=== PATIENT | male | born 1945 | race Caucasian/White ===

== ENCOUNTER 2017-07-13 04:15 | Observation (INO) | payer MEDICARE ==
[2017-07-13] MEDS ORDERED: MORPHINE SULFATE 2 MG INJ IV ONE (04:51)
[2017-07-13] MEDS ORDERED: TORAdol 30 mg Injection IV ONE (04:51)
[2017-07-13] MEDS ORDERED: Pepcid 20 MG VIAL IV ONE ×2 (04:51→04:59)
[2017-07-13] MEDS ORDERED: Zofran 4 MG/2 ML VIAL IV ONE (04:51)
--- NOTE | 2017-07-13 04:51 | ERPHSYRPT ---
- History of Present Illness Time Seen by Provider: 07/13/17 04:47 Historian: patient, family Exam Limitations: no limitations Patient Subjective Stated Complaint: back pain, vomiting, abd pain. Triage Nursing Assessment: pt is alert and oriented. pt is ambulatory. pt has vomited 3-4 times. pt bowel sounds present x5. pt has hx of kidney stones. pt stated no hematuria. Physician History: pt has had onset of back pain radiating into abdomen with vomiting for a few days and recent x-ray with unknown result to look for stones and hx kidney stones - prior appe and prior cardiac stents; no CP or sobreath at this time; Timing/Duration: day(s) Activities at Onset: none Quality: sharpness Abdominal Pain Onset Location: RLQ, LLQ Pain Radiation: back Severity of Pain-Max: moderate Severity of Pain-Current: moderate Associated Symptoms: back, nausea, vomiting Allergies/Adverse Reactions: No Known Drug Allergies Allergy (Unverified 07/13/17 04:29) Home Medications: Aspirin EC 325 mg [Ecotrin 325 MG] 325 mg PO DAILY 07/13/17 [History] Atorvastatin Calcium [Lipitor 40Mg] 40 mg PO HS 07/13/17 [History] Fenofibrate Nanocrystallized [Tricor] 48 mg PO DAILY 07/13/17 [History] Furosemide 40 mg [Lasix 40 MG] 40 mg PO BID 07/13/17 [History] Losartan Potassium [Cozaar] 25 mg PO DAILY 07/13/17 [History] Meloxicam 15 mg [Meloxicam 15 MG] 15 mg PO DAILY 07/13/17 [History] Metformin HCl [Metformin HCl] 1,000 mg PO BID 07/13/17 [History] Metoprolol/Hydrochlorothiazide [Lopressor Hct 50-25 Tablet] 0.5 tab PO BID 07/13 [History] Potassium Chloride 20 Meq [Klor-Con 20 MEQ] 20 meq PO HS 07/13/17 [History] Hx Tetanus, Diphtheria Vaccination/Date Given: No Hx Influenza Vaccination/Date Given: Yes Hx Pneumococcal Vaccination/Date Given: Yes Immunizations Up to Date: Yes - Review of Systems Constitutional: No Fever, No Chills Eyes: No Symptoms Ears, Nose, & Throat: No Symptoms Respiratory: No Cough, No Dyspnea Cardiac: No Chest Pain, No Edema, No Syncope Abdominal/Gastrointestinal: Abdominal Pain, Nausea, Vomiting, No Diarrhea Genitourinary Symptoms: No Dysuria Musculoskeletal: Back Pain, No Neck Pain Skin: No Rash Neurological: No Dizziness, No Focal Weakness, No Sensory Changes Psychological: No Symptoms Endocrine: No Symptoms All Other Systems: Reviewed and Negative - Past Medical History Pertinent Past Medical History: Yes Cardiac History: Hypertension Respiratory History: No Pertinent History Endocrine Medical History: Diabetes Type II Musculoskeletal History: Arthritis GI Medical History: No Pertinent History History: No Pertinent History Psycho-Social History: No Pertinent History Male Reproductive Disorders: No Pertinent History - Past Surgical History Past Surgical History: Yes Neuro Surgical History: No Pertinent History Cardiac: Cardiac Catheterization, Cardiac Stent Respiratory: No Pertinent History Gastrointestinal: Appendectomy Genitourinary: No Pertinent History Musculoskeletal: No Pertinent History Male Surgical History: No Pertinent History - Social History Smoking Status: Former smoker Drug Use: none Patient Lives Alone: No - Nursing Vital Signs Nursing Vital Signs: Initial Vital Signs Temperature 98.5 F 07/13/17 04:16 Pulse Rate 75 07/13/17 04:16 Respiratory Rate 16 07/13/17 04:16 Blood Pressure 153/73 07/13/17 04:16 O2 Sat by Pulse Oximetry 96 07/13/17 04:16 Pain Scale Pain Intensity [Lower Back] 6 Pain Intensity 0 - Physical Exam General Appearance: no apparent distress, alert Eye Exam: PERRL/EOMI, eyes nml inspection Ears, Nose, Throat Exam: normal ENT inspection, pharynx normal, moist mucous membranes Neck Exam: normal inspection, non-tender, supple, full range of motion Respiratory Exam: normal breath sounds, lungs clear, No respiratory distress Cardiovascular Exam: regular rate/rhythm, normal heart sounds Gastrointestinal/Abdomen Exam: soft, No tenderness, No mass Rectal Exam: deferred Back Exam: normal inspection, normal range of motion, No CVA tenderness, No vertebral tenderness Extremity Exam: normal inspection, normal range of motion, pelvis stable Neurologic Exam: alert, oriented x 3, cooperative, normal mood/affect, nml cerebellar function, sensation nml, No motor deficits Skin Exam: normal color, warm, dry SpO2: 96 - Course Nursing assessment & vital signs reviewed: Yes EKG Interpreted by Me: Sinus Rhythm, Left Hoopa Deviation, Non-specific ST Changes, Other (intraventricular conduction delay) - Radiology Exams Chest X-ray Interpretation: Reviewed by me, Other (interstitial changes some present before with COPD smokinbg Hx) - CT Exams Abdomen/Pelvis CT Interpretation: Tele-radiologist Report, Other (right renal stone with hydronephrosis) Ordered Tests: Active Orders 24 hr Category Date Time Status Clean Catch Urine Specimen STAT Care 07/13/17 04:51 Active EKG-ER Only STAT Care 07/13/17 04:51 Active IV Insertion STAT Care 07/13/17 04:51 Active NPO (ED) STAT Care 07/13/17 04:51 Active ABDOMEN AND PELVIS W/0 CONTRAS [CT] Stat Exams 07/13/17 04:52 Ordered CHEST 1 VIEW (PORTABLE) Stat Exams 07/13/17 04:52 Ordered AMYLASE Stat Lab 07/13/17 04:50 Received CBC W DIFF Stat Lab 07/13/17 04:50 Completed CMP Stat Lab 07/13/17 04:50 Received LIPASE Stat Lab 07/13/17 04:50 Received Lactic Acid Stat Lab 07/13/17 04:55 Results TROPONIN Q3H Lab 07/13/17 04:50 Received TROPONIN Q3H Lab 07/13/17 08:00 Ordered TROPONIN Q3H Lab 07/13/17 11:00 Ordered TROPONIN Q3H Lab 07/13/17 14:00 Ordered TROPONIN Q3H Lab 07/13/17 17:00 Ordered UA W/RFX UR CULTURE Stat Lab 07/13/17 04:52 Uncollected Medication Summary Discontinued Medications Generic Name Dose Route Start Last Admin Trade Name Freq PRN Reason Stop Dose Admin Famotidine 20 mg 07/13/17 04:51 07/13/17 05:09 Pepcid 20 Mg Vial IV 07/13/17 04:52 20 mg STAT ONE Administration Famotidine Confirm 07/13/17 04:59 Pepcid 20 Mg Vial Administered 07/13/17 05:00 Dose 20 mg IV .STK-MED ONE Sodium Chloride 500 mls @ 999 mls/hr 07/13/17 04:51 07/13/17 05:09 Sodium Chloride 0.9% 1000 Ml IV 07/13/17 05:21 999 mls/hr .Q31M STA Administration Sodium Chloride Confirm 07/13/17 05:00 Sodium Chloride 0.9% 1000 Ml Administered 07/13/17 05:01 Dose 1,000 mls @ ud .ROUTE .STK-MED ONE Ketorolac Tromethamine 30 mg 07/13/17 04:51 07/13/17 05:09 Toradol 30 Mg Injection IV 07/13/17 04:52 30 mg STAT ONE Administration Ketorolac Tromethamine Confirm 07/13/17 04:59 Toradol 30 Mg Injection Administered 07/13/17 05:00 Dose 30 mg .ROUTE .STK-MED ONE Morphine Sulfate 2 mg 07/13/17 04:51 07/13/17 05:08 Morphine Sulfate 2 Mg Inj IV 07/13/17 04:52 2 mg STAT ONE Administration Morphine Sulfate Confirm 07/13/17 05:00 Morphine Sulfate 4 Mg Inj Administered 07/13/17 05:01 Dose 4 mg .ROUTE .STK-MED ONE Ondansetron HCl 4 mg 07/13/17 04:51 07/13/17 05:09 Zofran 4 Mg/2 Ml Vial IV 07/13/17 04:52 4 mg STAT ONE Administration Ondansetron HCl Confirm 07/13/17 04:59 Zofran 4 Mg/2 Ml Vial Administered 07/13/17 05:00 Dose 4 mg .ROUTE .STK-MED ONE Lab/Rad Data: Laboratory Result Diagrams 07/13/17 04:50 07/13/17 04:50 Laboratory Results 07/13/17 07/13/17 07/13/17 Range/Units 04:55 04:50 04:50 WBC (4.0-10.5) K/mm3 RBC (4.1-5.6) M/mm3 Hgb (12.5-18.0) gm/dl Hct (42-50) % MCV (78-100) fl MCH (26-32) pg MCHC (32-36) g/dl RDW (11.5-14.0) % Plt Count (150-450) K/mm3 MPV (6-9.5) fl Gran % (36.0-66.0) % Eos # (Auto) (0-0.5) Absolute Lymphs (auto) (1.0-4.6) Absolute Monos (auto) (0.0-1.3) Lymphocytes % (24.0-44.0) % Monocytes % (0.0-12.0) % Eosinophils % (0.00-5.0) % Basophils % (0.0-0.4) % Absolute Granulocytes (1.4-6.9) Basophils # (0-0.4) Sodium 143 (137-145) mmol/L Potassium 4.5 (3.5-5.1) mmol/L Chloride 105 (98-107) mmol/L Carbon Dioxide 28 (22-30) mmol/L Anion Gap 14.8 (5-15) MEQ/L BUN 19 (9-20) mg/dL Creatinine 1.01 (0.66-1.25) mg/dL Estimated GFR > 60.0 ML/MIN Glucose 189 H (74-106) mg/dL Lactic Acid 2.5 H (0.4-2.0) Calcium 11.3 H (8.4-10.2) mg/dL Total Bilirubin 0.50 (0.2-1.3) mg/dL AST 46 (17-59) U/L ALT 48 (0-50) U/L Alkaline Phosphatase 43 (38-126) U/L Troponin I < 0.012 (0.000-0.034) ng/mL Serum Total Protein 6.7 (6.3-8.2) g/dL Albumin 4.2 (3.5-5.0) g/dL Amylase 80 (30-110) U/L Lipase 112 (23-300) U/L //18 Range/Units 04:50 WBC 7.8 (4.0-10.5) K/mm3 RBC 4.46 (4.1-5.6) M/mm3 Hgb 13.4 (12.5-18.0) gm/dl Hct 41.3 L (42-50) % MCV 92.6 (78-100) fl MCH 30.0 (26-32) pg MCHC 32.4 (32-36) g/dl RDW 13.9 (11.5-14.0) % Plt Count 134 L (150-450) K/mm3 MPV 11.8 H (6-9.5) fl Gran % 80.5 H (36.0-66.0) % Eos # (Auto) 0.06 (0-0.5) Absolute Lymphs (auto) 0.84 L (1.0-4.6) Absolute Monos (auto) 0.62 (0.0-1.3) Lymphocytes % 10.7 L (24.0-44.0) % Monocytes % 7.9 (0.0-12.0) % Eosinophils % 0.8 (0.00-5.0) % Basophils % 0.1 (0.0-0.4) % Absolute Granulocytes 6.31 (1.4-6.9) Basophils # 0.01 (0-0.4) Sodium (137-145) mmol/L Potassium (3.5-5.1) mmol/L Chloride (98-107) mmol/L Carbon Dioxide (22-30) mmol/L Anion Gap (5-15) MEQ/L BUN (9-20) mg/dL Creatinine (0.66-1.25) mg/dL Estimated GFR ML/MIN Glucose (74-106) mg/dL Lactic Acid (0.4-2.0) Calcium (8.4-10.2) mg/dL Total Bilirubin (0.2-1.3) mg/dL AST (17-59) U/L ALT (0-50) U/L Alkaline Phosphatase (38-126) U/L Troponin I (0.000-0.034) ng/mL Serum Total Protein (6.3-8.2) g/dL Albumin (3.5-5.0) g/dL Amylase (30-110) U/L Lipase (23-300) U/L - Progress Progress: improved, re-examined Progress Note: 07/13/17 06:24 DIscussed with pt family and Dr power covering for dr Bautista and all agree best to place pt in obs to treat pain and follow hydronephrosis/renal stone for passage; Discussed with : Ernesto Will see patient in: hospital (observation) Counseled pt/family regarding: lab results, diagnosis, need for follow-up, rad results - Departure Time of Disposition: 06:28 Departure Disposition: Observation Clinical Impression: right renal stone with hydronephrosis Condition: Good Critical Care Time: No Referrals: DIEGO BAUTISTA MD [Primary Care Provider] -
[2017-07-13] MEDS ORDERED: TORAdol 30 mg Injection ONE (04:59)
[2017-07-13] MEDS ORDERED: Zofran 4 MG/2 ML VIAL ONE (04:59)
[2017-07-13] MEDS ORDERED: Sodium Chloride 0.9% 1000 ML 1,000 ML ONE (05:00)
[2017-07-13] MEDS ORDERED: MORPHINE SULFATE 4 MG INJ ONE (05:00)
[2017-07-13 05:02] LABS: Lactic Acid 2.5 (0.4-2.0)
[2017-07-13 05:02] LABS: BASOPHIL % 0.1 % (0.0-0.4); Basophil (Absolute #) 0.01 (0-0.4); Eosinophil % 0.8 % (0.00-5.0); Eosinophil (Absolute #) 0.06 (0-0.5); Granulocyte Absolute (ANC) 6.31 (1.4-6.9); Granulocytes % 80.5 % (36.0-66.0); Hematocrit 41.3 % (42-50); Hemoglobin 13.4 gm/dl (12.5-18.0); Lymphocyte (Absolute #) 0.84 (1.0-4.6); Lymphocytes % 10.7 % (24.0-44.0); Mean Cell Volume 92.6 fl (78-100); Mean Corpuscular Hgb Concent. 32.4 g/dl (32-36); Mean Platelet Volume 11.8 fl (6-9.5); Monocyte (Absolute #) 0.62 (0.0-1.3); Monocytes % 7.9 % (0.0-12.0); Platelet Count 134 K/mm3 (150-450); Red Blood Count 4.46 M/mm3 (4.1-5.6); Red Cell Distribution Width 13.9 % (11.5-14.0); White Blood Count 7.8 K/mm3 (4.0-10.5)
[2017-07-13 05:18] LABS: ALBUMIN 4.2 g/dL (3.5-5.0); ALKALINE PHOSPHATASE 43 U/L (38-126); AMYLASE 80 U/L (30-110); ANION GAP 14.8 MEQ/L (5-15); BLOOD UREA NITROGEN 19 mg/dL (9-20); CHLORIDE 105 mmol/L (98-107); Calcium 11.3 mg/dL (8.4-10.2); Carbon Dioxide 28 mmol/L (22-30); Creatinine 1 1.01 mg/dL (0.66-1.25); Glucose 189 mg/dL (74-106); LIPASE 112 U/L (23-300); Potassium 4.5 mmol/L (3.5-5.1); SGOT/AST 46 U/L (17-59); SGPT/ALT 48 U/L (0-50); SODIUM 143 mmol/L (137-145); Total Protein 6.7 g/dL (6.3-8.2)
[2017-07-13] MEDS ORDERED: Zofran 4 MG/2 ML VIAL IV PRN (07:02)
[2017-07-13] MEDS ORDERED: NovoLIN R SQ PRN (07:02)
[2017-07-13] MEDS ORDERED: Sodium Chloride 0.9% 1000 ML 1,000 ML IV SCH (07:02)
[2017-07-13] MEDS ORDERED: TORAdol 30 mg Injection IV PRN (07:02)
[2017-07-13] MEDS ORDERED: MORPHINE SULFATE 4 MG INJ IV PRN (07:02)
--- NOTE | 2017-07-13 07:18 | XRAY ---
Indication: Abdomen/back pain and emesis. History renal calculi. Multiple contiguous axial images obtained through the abdomen and pelvis without contrast as ordered. Comparison: October 26, 2008. Lung bases demonstrates minimal bibasilar atelectasis/scarring. Stable left base calcified granuloma. No infiltrate or effusion. Heart is not enlarged. Stable small hiatal hernia. New 2-3 mm proximal right ureteral calculus, approximately L4 level. Moderate right-sided hydronephrosis with perinephric stranding consistent with obstructive uropathy. A few nonobstructing bilateral renal punctate calculi. Gallbladder partially contracted with new tiny gallstones/gravel. Noncontrasted stomach and bowel loops appear nonobstructed. Previous reported appendectomy. Minimal scattered colonic diverticulosis, greatest in the descending colon. No free fluid/air. Remaining liver, pancreas, spleen, adrenal glands, kidneys, ureters, and bladder appear unremarkable for noncontrast exam. Again moderate aortoiliac calcifications without AAA. Osseous structures intact with mild multilevel degenerative spondylosis. Again small fatty umbilical hernia. Impression: 1. New 2-3 mm proximal right ureteral calculus with obstructive uropathy. Additional bilateral renal micro-calculi. 2. New cholelithiasis. 3. Stable colonic diverticulosis, hiatal hernia, and fatty umbilical hernia. Comment: Preliminary interpretation was made by [facility]. No critical discrepancy. CTDI 23.68
--- NOTE | 2017-07-13 07:18 | XRAY ---
Indication: Mid back pain. Possible pneumonia. Comparison: April 28, 2017. Portable apical lordotic chest is underinflated accentuating the cardiopulmonary structures. No focal infiltrate, consolidation, or large effusion. Heart is not enlarged. Bony thorax intact again with mild degenerative changes. Impression: Grossly nonacute underinflated chest.
[2017-07-13 08:02] VITALS: BP 124/60; PULSE 69; O2SAT 94
[2017-07-13] MEDS ORDERED: Flomax 0.4 MG PO SCH (10:00)
[2017-07-13] MEDS ORDERED: Norco 10/325 MG Tablet PO ONE (10:22)
--- NOTE | 2017-07-13 10:29 | PCM.DCORD ---
- Discharge Discharge Date: 07/13/17 Prescriptions: New Hydrocodone/APAP 10/325 mg [[place] 10/325 MG Tablet] 1 tab PO Q4H PRN PRN 5 Days #20 tablet MDD 4 PRN Reason: Pain Ondansetron [Zofran Odt] 4 mg PO Q4H #20 tab.rapdis Continue Aspirin EC 325 mg [Ecotrin 325 MG] 325 mg PO DAILY Atorvastatin Calcium [Lipitor 40Mg] 40 mg PO HS Furosemide 40 mg [Lasix 40 MG] 40 mg PO BID Fenofibrate Nanocrystallized [Tricor] 48 mg PO DAILY Metformin HCl 1,000 mg PO BID Losartan Potassium [Cozaar] 25 mg PO DAILY Metoprolol/Hydrochlorothiazide [Lopressor Hct 50-25 Tablet] 0.5 tab PO BID Potassium Chloride 20 Meq [Klor-Con 20 MEQ] 20 meq PO HS Meloxicam 15 mg [Meloxicam 15 MG] 15 mg PO DAILY Instructions: Renal Colic (DC) Follow up with: DIEGO BAUTISTA MD [Primary Care Provider] - Call for Appointment Forms: Discharge Instructions, Patient Portal Information
[2017-07-13] MEDS ORDERED: Mobic 7.5 MG PO SCH (10:30)
[2017-07-13] MEDS ORDERED: Glucophage 500 MG PO SCH (10:30)
[2017-07-13] MEDS ORDERED: Cozaar 50 MG PO SCH (10:30)
[2017-07-13] MEDS ORDERED: Lasix 40 MG PO SCH (10:30)
[2017-07-13] MEDS ORDERED: ENOXAPARIN SODIUM SQ SCH (10:30)
[2017-07-13] MEDS ORDERED: hydroDIURIL 25 MG PO SCH (10:30)
[2017-07-13] MEDS ORDERED: Ecotrin 325 MG PO SCH (10:30)
[2017-07-13] MEDS ORDERED: Tricor 145 MG PO SCH (10:30)
[2017-07-13] MEDS ORDERED: Lopressor 25MG Tab PO SCH (10:30)
[2017-07-13] MEDS ORDERED: LIPITOR 40MG PO SCH (22:00)
[2017-07-13] MEDS ORDERED: METOPROLOL PO SCH (22:00)
[2017-07-13] MEDS ORDERED: HYDROCHLOROTHIAZIDE PO SCH (22:00)
[2017-07-13] MEDS ORDERED: [UNRECOGNIZED DRUG - OTHER] PO SCH (22:00)
[2017-07-13] MEDS ORDERED: ZOCOR 20MG PO SCH (22:00)
[2017-07-13] MEDS ORDERED: NON-FORMULARY ITEM (Potassium Chloride 20 Meq [Klor-Con 20 Meq] 20 MEQ) PO SCH (22:00)
[2017-07-13] MEDS ORDERED: Klor Con 10 MEQ PO SCH (22:00)
--- NOTE | 2017-07-17 13:18 | SSS ---
DISCHARGE DIAGNOSIS: NEPHROLITHIASIS OF RIGHT SIDE. HISTORY: The patient is a 71 year-old white male patient who reports he began having problems with right flank pain, nausea, vomiting, abdominal pain radiating down to the groin. The patient reports he has a previous history of kidney stones the last time requiring lithotripsy to break up the stone after which he became toxic from pyelonephritis. The patient has not had problems for the last several years but did have x-ray recently to follow for stones. Apparently he has not heard back from this. In the emergency room the patient had a CT scan did confirm a 2 to 3 mm stone in the right collecting system approximately. The patient presently is essentially pain free and appears that the stone may well end up passing at this time. During his evaluation the patient was found to be somewhat hypoxic in the emergency room. He has been placed on supplemental oxygen. The patient has recently had evaluation for chronic obstructive pulmonary disease. He was a heavy smoker earlier in his life. He has had pulmonary function tests and chest x-ray recently. They found the cough to be due to FOREST inhibitor and after stopping it the cough went away. PAST MEDICAL/SURGICAL HISTORY: Otherwise significant for hypertension, diabetes mellitus type 2. He has had cardiac catheterization and heart stent, appendectomy in the past. HOME MEDICATIONS: Ecotrin 325 mg daily, Lipitor 40 mg a day, Tricor 48 mg daily, Lasix 40 mg b.i.d., losartan 25 mg daily, meloxicam 15 mg daily, metformin 1,000 mg b.i.d., metoprolol hydrochlorothiazide 50/25 mg b.i.d. and potassium 20 mEq daily. ALLERGIES: NKDA. PHYSICAL EXAMINATION: Revealed a well nourished, well developed somewhat obese white male currently in no distress. His temperature 98.5F, pulse 75, respiratory rate 16, blood pressure 152/73. O2 saturation 96% on room air initially. HEENT: Normocephalic, atraumatic. He is currently wearing oxygen per nasal cannula at 2 liters. Oropharynx is pink and moist. NECK: Supple without lymphadenopathy, thyromegaly or JVD. CHEST: Clear to auscultation with good air movement. HEART: Regular rate and rhythm without murmurs, rubs or gallops. ABDOMEN: Soft. No palpable masses. EXTREMITIES: Trace to 1+ edema over the shins. NEUROLOGIC: The patient is alert and oriented x3 with no focal deficits. LAB DATA AND TESTS: His troponins less than 0.012. His sugar was 189, BUN 19, creatinine 1.01. Electrolytes were normal. Liver enzymes were normal. Lactic acid elevated at 2.[address] scan again showed a 2 to 3 mm proximal right ureteral calculus with obstructive uropathy, new cholelithiasis and stable chronic diverticulosis, hiatal hernia and umbilical hernia. He had nonacute under-inflated chest on chest x-ray. HOSPITAL COURSE: The [facility] was [facility] and received morphine and Toradol after which the patient was essentially pain free at the present time. He was getting oxygen in the emergency room because his saturations were in the 70's after treatment with the morphine. We will check his O2 saturations on room air with rest and ambulation prior to discharge home otherwise he will be sent home with prescriptions for [place] and Zofran on PRN basis if the nausea or pain returns. He otherwise was instructed to follow with Dr. Flores in his office in the next coming week.
== END 2017-07-13 10:45 | disposition home or self-care (01) ==
LOC: ED 04:15 → MED SURG 06:58
PROVIDERS: ADMIT Family Medicine; ATTEND Family Medicine
DX: N20.0 Calculus of kidney (principal); Z87.442 Personal history of urinary calculi; R09.02 Hypoxemia; J44.9 Chronic obstructive pulmonary disease, unspecified; Z72.0 Tobacco use; I10 Essential (primary) hypertension; E11.9 Type 2 diabetes mellitus without complications; Z79.4 Long term (current) use of insulin; Z79.899 Other long term (current) drug therapy
CPT/HCPCS: 36000; 36415; 71045; 74176; 80053; 82150; 83605; 83690; 84484; 85025; 93005; 93268; 96360; 96374; 96375; 99285; G0378; J1885; J2270; J2405; A9270-GY

== ENCOUNTER 2017-12-03 07:48 | Day surgery (SDC) | payer MEDICARE ==
[2017-12-03] MEDS ORDERED: DIPRIVAN 200 MG/20 ML IV ONE (07:49)
[2017-12-03] MEDS ORDERED: Xylocaine-Mpf 2% 5 Ml Vial IJ ONE (07:49)
[2017-12-03] MEDS ORDERED: Depo-Medrol 40 MG/ML IM ONE (07:49)
[2017-12-03] MEDS ORDERED: Lactated Ringers 1,000 ML IV ONE (10:51)
--- NOTE | 2017-12-03 13:30 | XRAY ---
Indication: Bilateral L4-S1 MBB. Intraoperative fluoroscopy was provided for 33 seconds. Single digital spot image submitted for interpretation demonstrates bilateral posterior spinal needle tips projecting over the expected course of the left and right L4-S1 nerve roots. Correlate with intraoperative findings/report.
--- NOTE | 2017-12-03 16:37 | XRAY ---
27 seconds of fluoroscopy used in surgery for bilateral L4-S1 MBB.
== END 2017-12-03 09:40 | disposition home or self-care (01) ==
LOC: SDC-PAIN 07:48
PROVIDERS: ATTEND Psychiatry & Neurology Pain Medicine
DX: M47.817 Spondylosis without myelopathy or radiculopathy, lumbosacral region (principal)
CPT/HCPCS: 64493; 64494; 72020; 76000; 82962; 99100; J1030; J2704

== ENCOUNTER 2017-12-31 08:48 | Day surgery (SDC) | payer MEDICARE ==
[2017-12-31] MEDS ORDERED: Marcaine 0.5% SDV 10 ML IJ ONE (08:49)
[2017-12-31] MEDS ORDERED: DIPRIVAN 200 MG/20 ML IV ONE (08:49)
[2017-12-31] MEDS ORDERED: Depo-Medrol 40 MG/ML IM ONE (08:49)
[2017-12-31] MEDS ORDERED: Lactated Ringers 1,000 ML IV ONE (12:36)
--- NOTE | 2017-12-31 12:36 | XRAY ---
Indication: Bilateral L4-S1 MBB. Intraoperative fluoroscopy was provided for 7 seconds. Single digital spot image submitted for interpretation demonstrates posterior spinal needle tips along the expected course of the left and right L4-S1 nerve roots. Correlate with intraoperative findings/report.
--- NOTE | 2017-12-31 12:46 | XRAY ---
7 seconds of fluoroscopy was used in surgery for bilateral L4-S1 MBB.
== END 2017-12-31 10:40 | disposition home or self-care (01) ==
LOC: SDC-PAIN 08:48
PROVIDERS: ATTEND Psychiatry & Neurology Pain Medicine
DX: M47.817 Spondylosis without myelopathy or radiculopathy, lumbosacral region (principal)
CPT/HCPCS: 64493; 64494; 72020; 77003; 82962; J1030; J2704

== ENCOUNTER 2018-04-08 07:43 | Day surgery (SDC) | payer MEDICARE ==
[2018-04-08] MEDS ORDERED: Ketamine HCl 50 MG/ML IJ ONE (07:44)
[2018-04-08] MEDS ORDERED: Sodium Chloride 0.9(Preservative Free) 10 ML IJ ONE (07:44)
[2018-04-08] MEDS ORDERED: Xylocaine 1% Vial 30 ML PF IJ ONE (07:44)
[2018-04-08] MEDS ORDERED: Depo-Medrol 40 MG/ML IM ONE (07:44)
[2018-04-08] MEDS ORDERED: DIPRIVAN 200 MG/20 ML IV ONE (07:44)
--- NOTE | 2018-04-08 11:52 | XRAY ---
Indication: L4-S1 KAYKAY. Intraoperative fluoroscopy was provided for 1 minute 11 seconds. 5 digital spot images submitted for interpretation demonstrates posterior spinal needle tips projecting over the expected course of the left/right L5 and right L4 nerve roots. Small amount of contrast injected for needle tip placement. Correlate with intraoperative findings/report.
--- NOTE | 2018-04-08 11:57 | XRAY ---
1 minute and 11 seconds fluoroscopy time in surgery for bilateral S-I joint injections.
[2018-04-08] MEDS ORDERED: Lactated Ringers 1,000 ML IV ONE (14:26)
== END 2018-04-08 10:32 | disposition home or self-care (01) ==
LOC: SDC-PAIN 07:43
PROVIDERS: ATTEND Psychiatry & Neurology Pain Medicine
DX: M54.16 Radiculopathy, lumbar region (principal); I10 Essential (primary) hypertension; E11.9 Type 2 diabetes mellitus without complications; M06.9 Rheumatoid arthritis, unspecified; Z79.899 Other long term (current) drug therapy; E78.5 Hyperlipidemia, unspecified
CPT/HCPCS: 64483; 64484; 72020; 77003; 82962; 99100; J1030; J2001; J2704; Q9966

== ENCOUNTER 2018-05-12 08:52 | Emergency (ER) | payer MEDICARE ==
[2018-05-12 09:11] VITALS: O2SAT 96
--- NOTE | 2018-05-12 09:25 | ERPHSYRPT ---
- History of Present Illness Time Seen by Provider: 05/12/18 09:15 Source: patient, family Exam Limitations: no limitations Patient Subjective Stated Complaint: pain into right leg "sciatica" pain in low back. has hx chronic back pain.. no new injuries Triage Nursing Assessment: alert and oriented with c/o right leg /back pain which he is getting tx for per pain managment.. had injection 2 weeks ago. able to ambulate but family states hes been unstable on the right leg. denies injury. or reinjury. + pedal pulse.. strong f;ex/ext. Physician History: 72 y/o white male with chronic lbp. pt sees a pain management doctor for this issue. however, pt woke up today after undergoing several u/s tests yesterday including venous doppler and echo at [facility]. pt states he was laying on a hard table and turned back a forth. 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 pain shoots posteriorly down right buttock. no acute injury. Timing/Duration: today Method of Injury: other (no acute injury) Quality: sharp, stabbing Back Pain Location: lumbar spine Back Pain Radiation: buttocks (right side) Severity of Pain-Max: moderate Severity of Pain-Current: moderate Modifying Factors: Improves With: movement Associated Symptoms: lower back pain, muscle spasms, No fever, No chills, No sweating, No urinary incontinence, No nausea, No vomiting, No weakness Previous symptoms: same symptoms as today Allergies/Adverse Reactions: No Known Drug Allergies Allergy (Verified 05/12/18 09:04) Home Medications: Aspirin EC 325 mg [Ecotrin 325 MG] 325 mg PO DAILY 07/13/17 [History] Atorvastatin Calcium [Lipitor 40Mg] 40 mg PO HS 07/13/17 [History] Fenofibrate Nanocrystallized [Tricor] 48 mg PO DAILY 07/13/17 [History] Furosemide 40 mg [Lasix 40 MG] 40 mg PO BID 07/13/17 [History] Losartan Potassium [Cozaar] 25 mg PO DAILY 07/13/17 [History] Meloxicam 15 mg [Meloxicam 15 MG] 15 mg PO DAILY 07/13/17 [History] Metformin HCl 1,000 mg PO BID 07/13/17 [History] Metoprolol/Hydrochlorothiazide [Lopressor Hct 50-25 Tablet] 0.5 tab PO BID 07/13 [History] Potassium Chloride 20 Meq [Klor-Con 20 MEQ] 20 meq PO HS 07/13/17 [History] Empagliflozin [Jardiance] 25 mg PO DAILY 05/12/18 [History] Ferrous Sulfate 325 mg PO BID 05/12/18 [History] Linagliptin [Tradjenta] 5 mg PO DAILY 05/12/18 [History] Magnesium Oxide [Magnesium] 500 mg PO BID 05/12/18 [History] Multivitamin [Multivitamins] 1 each PO DAILY 05/12/18 [History] Lynx-3/Dha/Epa/Fish Oil [Lynx 3 500 Softgel] 1 each PO HS 05/12/18 [History] Omeprazole 20 mg PO DAILY 05/12/18 [History] Hx Tetanus, Diphtheria Vaccination/Date Given: No Hx Influenza Vaccination/Date Given: Yes Hx Pneumococcal Vaccination/Date Given: Yes - Review of Systems Constitutional: No Symptoms Eyes: No Symptoms Ears, Nose, & Throat: No Symptoms Respiratory: No Symptoms Cardiac: No Symptoms Abdominal/Gastrointestinal: No Symptoms Genitourinary Symptoms: No Symptoms Musculoskeletal: Back Pain Skin: No Symptoms Neurological: No Symptoms Psychological: No Symptoms Endocrine: No Symptoms Hematologic/Lymphatic: No Symptoms Immunological/Allergic: No Symptoms All Other Systems: Reviewed and Negative - Past Medical History Pertinent Past Medical History: Yes Neurological History: No Pertinent History ENT History: No Pertinent History Cardiac History: Hypertension Respiratory History: No Pertinent History Endocrine Medical History: Diabetes Type II Musculoskeletal History: Arthritis GI Medical History: No Pertinent History History: No Pertinent History Psycho-Social History: No Pertinent History Male Reproductive Disorders: No Pertinent History - Past Surgical History Past Surgical History: Yes Neuro Surgical History: No Pertinent History Cardiac: Cardiac Catheterization, Cardiac Stent Respiratory: No Pertinent History Gastrointestinal: Appendectomy Genitourinary: No Pertinent History Musculoskeletal: No Pertinent History Male Surgical History: No Pertinent History - Social History Smoking Status: Former smoker Exposure to second hand smoke: No Drug Use: none Patient Lives Alone: No Significant Family History: no pertinent family hx - Nursing Vital Signs Nursing Vital Signs: Initial Vital Signs Temperature 97.6 F 05/12/18 09:04 Pulse Rate 68 05/12/18 09:04 Respiratory Rate 18 05/12/18 09:04 Blood Pressure 137/71 05/12/18 09:04 O2 Sat by Pulse Oximetry 96 05/12/18 09:04 Pain Scale Pain Intensity 8 - Physical Exam General Appearance: mild distress, alert, anxiety Eye Exam: PERRL/EOMI Ears, Nose, Throat Exam: normal ENT inspection, moist mucous membranes Neck Exam: normal inspection, non-tender, supple, full range of motion Respiratory Exam: normal breath sounds, lungs clear, airway intact, No chest tenderness, No respiratory distress Cardiovascular Exam: regular rate/rhythm, normal heart sounds, normal peripheral pulses Gastrointestinal Exam: soft, normal bowel sounds, No tenderness, No guarding Rectal Exam: not done Back Exam: normal inspection, decreased range of motion, muscle spasm, No CVA tenderness, No vertebral tenderness Extremity Exam: normal inspection, normal range of motion, pelvis stable Neurologic Exam: alert, oriented x 3, cooperative, mold engraver II-XII nml as tested, normal mood/affect Skin Exam: normal color, warm, dry Lymphatic Exam: No adenopathy SpO2 Interpretation: normal SpO2: 96 O2 Delivery: Room Air - Course Nursing assessment & vital signs reviewed: Yes - Progress Progress: unchanged, pain not gone completely Progress Note: 05/12/18 09:32 pt underwent a bilat lower ext doppler yesterday at [facility] to eval for dvt. pts daughter called to obtain results. since pts doctor who ordered test was out of town, his nurses did not have the results, they told her to tell us to obtain a d dimer level or repeat venous doppler we obtained a preliminary report from CVT at [place](Christine) and bilat venous doppler negative for DVT. 05/12/18 09:41 pts spouse came into ED and requested we give him the pain medication but they wanted to personally drive him from here to [facility] to see his cardiovascular doctor. I gave her the preliminary venous doppler report as above. Counseled pt/family regarding: diagnosis, need for follow-up, rad results - Departure Time of Disposition: 09:39 Departure Disposition: Home Clinical Impression: Low back pain, Sciatica Condition: Stable Critical Care Time: No Referrals: DIEGO BAUTISTA MD [Primary Care Provider] - Additional Instructions: follow up with primary doctor for further management.
[2018-05-12] MEDS ORDERED: Ativan 2 MG/1 ML VIAL IM ONE (09:37)
[2018-05-12] MEDS ORDERED: MORPHINE SULFATE 2 MG INJ IM ONE (09:37)
[2018-05-12] MEDS ORDERED: DELTASONE 10 MG PO ONE (09:38)
[2018-05-12] MEDS ORDERED: DELTASONE 20 MG ONE (09:45)
[2018-05-12] MEDS ORDERED: Ativan 2 MG/1 ML VIAL ONE (09:45)
[2018-05-12] MEDS ORDERED: MORPHINE SULFATE 2 MG INJ ONE (09:45)
[2018-05-12 10:15] VITALS: BP 128/84; PULSE 70
== END 2018-05-12 10:15 | disposition home or self-care (01) ==
LOC: ED 08:52
DX: M54.5 Low back pain (principal); M54.30 Sciatica, unspecified side; I10 Essential (primary) hypertension; E11.9 Type 2 diabetes mellitus without complications
CPT/HCPCS: 96372; 99284; J2060; J2270; A9270-GY

== ENCOUNTER 2018-09-23 07:47 | Day surgery (SDC) | payer MEDICARE ==
[2018-09-23] MEDS ORDERED: Xylocaine-Mpf 2% 5 Ml Vial IJ ONE (07:48)
[2018-09-23] MEDS ORDERED: Depo-Medrol 40 MG/ML IM ONE (07:48)
[2018-09-23] MEDS ORDERED: Ketamine HCl 50 MG/ML ONE (07:53)
[2018-09-23] MEDS ORDERED: DIPRIVAN 200 MG/20 ML IV ONE (07:53)
[2018-09-23] MEDS ORDERED: Lactated Ringers 1,000 ML IV ONE (13:44)
--- NOTE | 2018-09-23 15:10 | XRAY ---
Indication: Bilateral L4-S1 MBB. Intraoperative fluoroscopy was provided for 11 seconds. Single digital spot image submitted for interpretation demonstrates posterior needle tips projecting over the expected course of the left and right L4-S1 nerve roots. Correlate with intraoperative findings/report.
--- NOTE | 2018-09-25 11:44 | XRAY ---
11 seconds fluoroscopy time in surgery for bilateral L4-S1 MBB.
== END 2018-09-23 10:07 | disposition home or self-care (01) ==
LOC: SDC-PAIN 07:47
PROVIDERS: ATTEND Psychiatry & Neurology Pain Medicine
DX: M47.816 Spondylosis without myelopathy or radiculopathy, lumbar region (principal); E11.9 Type 2 diabetes mellitus without complications; I10 Essential (primary) hypertension; E78.5 Hyperlipidemia, unspecified; Z79.899 Other long term (current) drug therapy
CPT/HCPCS: 64493; 64494; 72020; 77002; 82962; J1030; J2704

== ENCOUNTER 2018-11-04 07:55 | Day surgery (SDC) | payer MEDICARE ==
[2018-11-04] MEDS ORDERED: Xylocaine 1% Vial 30 ML PF IJ ONE (07:56)
[2018-11-04] MEDS ORDERED: Marcaine 0.5% SDV 10 ML IJ ONE (07:56)
[2018-11-04] MEDS ORDERED: Depo-Medrol 40 MG/ML IM ONE (07:56)
[2018-11-04] MEDS ORDERED: Ketamine HCl 50 MG/ML ONE ×2 (08:35→09:13)
[2018-11-04] MEDS ORDERED: DIPRIVAN 200 MG/20 ML IV ONE (09:13)
--- NOTE | 2018-11-04 10:06 | XRAY ---
Indication: Left L4-S1 RFA. Intraoperative fluoroscopy was provided for 15 seconds. 3 digital spot images submitted for interpretation demonstrates posterior needle tips projecting over the expected course of the left L4-S1 nerve roots. Correlate with intraoperative findings/report.
--- NOTE | 2018-11-04 11:31 | XRAY ---
15 seconds fluoroscopy time in surgery for left L4-S1 RFA.
[2018-11-04] MEDS ORDERED: Lactated Ringers 1,000 ML IV ONE (13:58)
== END 2018-11-04 09:52 | disposition home or self-care (01) ==
LOC: SDC-PAIN 07:55
PROVIDERS: ATTEND Psychiatry & Neurology Pain Medicine
DX: M47.816 Spondylosis without myelopathy or radiculopathy, lumbar region (principal); I10 Essential (primary) hypertension; E78.5 Hyperlipidemia, unspecified; Z79.899 Other long term (current) drug therapy
CPT/HCPCS: 64635; 64636; 72100; 77002; 82962; 99100; J1030; J2001; J2704

== ENCOUNTER 2018-12-02 09:06 | Day surgery (SDC) | payer MEDICARE ==
[2018-12-02] MEDS ORDERED: Sodium Chloride 0.9(Preservative Free) 10 ML IJ ONE (09:07)
[2018-12-02] MEDS ORDERED: Depo-Medrol 40 MG/ML IM ONE (09:07)
[2018-12-02] MEDS ORDERED: Ketamine HCl 50 MG/ML ONE (10:19)
[2018-12-02] MEDS ORDERED: DIPRIVAN 200 MG/20 ML IV ONE (10:19)
--- NOTE | 2018-12-02 12:20 | XRAY ---
Indication: Left L4-S1 KAYKAY. Intraoperative fluoroscopy was provided for 23 seconds. 2 digital spot images submitted for interpretation demonstrates posterior needle tips projecting over the expected course of the left L4 and L5 nerve roots. Small amount of contrast injected for needle tip placement. Correlate with intraoperative findings/report.
--- NOTE | 2018-12-02 12:28 | XRAY ---
23 seconds fluoroscopy time in surgery for left L4-S1 KAYKAY.
[2018-12-02] MEDS ORDERED: Lactated Ringers 1,000 ML IV ONE (15:23)
== END 2018-12-02 10:50 | disposition home or self-care (01) ==
LOC: SDC-PAIN 09:06
PROVIDERS: ATTEND Psychiatry & Neurology Pain Medicine
DX: M54.16 Radiculopathy, lumbar region (principal); E11.9 Type 2 diabetes mellitus without complications; I10 Essential (primary) hypertension; E78.5 Hyperlipidemia, unspecified; Z79.899 Other long term (current) drug therapy
CPT/HCPCS: 64483; 64484; 72020; 77003; 82962; 99100; J1030; J2704; Q9966

== ENCOUNTER 2019-04-21 07:42 | Day surgery (SDC) | payer MEDICARE ==
[2019-04-21] MEDS ORDERED: Depo-Medrol 40 MG/ML IM ONE (07:43)
[2019-04-21] MEDS ORDERED: Marcaine 0.5% SDV 10 ML IJ ONE (07:43)
[2019-04-21] MEDS ORDERED: Ketamine HCl 50 MG/ML ONE (09:39)
[2019-04-21] MEDS ORDERED: DIPRIVAN 200 MG/20 ML IV ONE (09:39)
--- NOTE | 2019-04-21 10:47 | XRAY ---
Indication: Left SI joint injection. Intraoperative fluoroscopy was provided for 12 seconds. 2 digital spot images submitted for interpretation demonstrates posterior needle tip projecting over the inferior left SI joint. Correlate with intraoperative findings/report.
--- NOTE | 2019-04-21 10:47 | XRAY ---
12 seconds fluoroscopy time in surgery for left SI joint injection.
[2019-04-21] MEDS ORDERED: Lactated Ringers 1,000 ML IV ONE (13:40)
== END 2019-04-21 10:05 | disposition home or self-care (01) ==
LOC: SDC-PAIN 07:42
PROVIDERS: ATTEND Psychiatry & Neurology Pain Medicine
DX: M46.1 Sacroiliitis, not elsewhere classified (principal); E11.9 Type 2 diabetes mellitus without complications; I10 Essential (primary) hypertension; E78.5 Hyperlipidemia, unspecified; Z79.899 Other long term (current) drug therapy
CPT/HCPCS: 64451; 72020; 77002; 82962; J1030; J2704

== ENCOUNTER 2023-03-04 06:16 | Day surgery (SDC) | payer MEDICARE ==
[~2023-03-04 06:16] MED LIST: Ak-Dilate OPHTHALMIC*** 1.065 ML, Cyclogyl 1% OPHTH SOL 1.065 ML, GATIFLOXACIN 0.5% OPH... OP ONE; BETADINE 5% OPHTHALMIC 30 ML OP ONE; Lactated Ringers 1,000 ML IV SCH; NON-FORMULARY ITEM OP ONE; TETRACAINE 0.5% STERI-UNIT SOL OP ONE; cefUROXime sodium 0.005 GM in Sodium Chloride Flush 30 ML*** 0.5 ML IJ ONE
[2023-03-04] MEDS ORDERED: Lactated Ringers 1,000 ML IV ONE (06:36)
[2023-03-04] MEDS ORDERED: ACETAZOLAMIDE 250 MG TABLET PO ONE (08:15)
[2023-03-04] MEDS ORDERED: Epinephrine Preservative Free 1 MG/ML IJ ONE (08:15)
[2023-03-04] MEDS ORDERED: Zofran 4 MG/2 ML VIAL IV PRN (08:15)
[2023-03-04] MEDS ORDERED: DIPRIVAN 200 MG/20 ML IV ONE (09:25)
[2023-03-04 09:49] VITALS: RESP 16
[2023-03-04 09:54] VITALS: TEMP 97.2
[2023-03-04 09:57] VITALS: PULSE 56
[2023-03-04 10:01] VITALS: BP 156/89; O2SAT 95
== END 2023-03-04 10:07 | disposition home or self-care (01) ==
LOC: SDC 06:16
PROVIDERS: ATTEND Ophthalmology
DX: H25.811 Combined forms of age-related cataract, right eye (principal); E11.9 Type 2 diabetes mellitus without complications
CPT/HCPCS: 82947; C1780; J0171; J2704; A9270-GY

== ENCOUNTER 2023-03-28 06:57 | Day surgery (SDC) | payer MEDICARE ==
[2023-03-28] MEDS ORDERED: LIDOCAINE HCL 1% 50 MG/5 ML VL PF IJ ONE (06:58)
[2023-03-28] MEDS ORDERED: Epinephrine Preservative Free 1 MG/ML IJ ONE (06:58)
[2023-03-28] MEDS ORDERED: NON-FORMULARY ITEM OP ONE (07:00)
[2023-03-28] MEDS ORDERED: TETRACAINE 0.5% STERI-UNIT SOL OP ONE (07:00)
[2023-03-28] MEDS ORDERED: BETADINE 5% OPHTHALMIC 30 ML OP ONE (07:00)
[2023-03-28] MEDS ORDERED: cefUROXime sodium 0.005 GM in Sodium Chloride Flush 30 ML*** 0.5 ML IJ ONE (07:00)
[2023-03-28] MEDS ORDERED: Lactated Ringers 1,000 ML IV ONE (07:28)
[2023-03-28 07:35] VITALS: RESP 16
[2023-03-28] MEDS: Lactated Ringers 1,000 ML IV SCH (07:44)
[2023-03-28] MEDS: Ak-Dilate OPHTHALMIC*** 1.065 ML, Cyclogyl 1% OPHTH SOL 1.065 ML, GATIFLOXACIN 0.5% OPH... OP ONE (07:45)
[2023-03-28] MEDS: TETRACAINE 0.5% STERI-UNIT SOL OP ONE (07:45)
[2023-03-28 08:21] LABS: ANION GAP 9.7 MEQ/L (5-15); Calcium 10.7 mg/dL (8.4-10.2); Creatinine 1 0.73 mg/dL (0.66-1.25); EST GLOMERULAR FILTRATION RATE 92.6 ML/MIN; Potassium 3.4 mmol/L (3.5-5.1)
[2023-03-28] MEDS ORDERED: Versed 2 MG/2 ML Injection ONE (09:54)
[2023-03-28] MEDS ORDERED: SUBLIMAZE 100 MCG/2 ML ONE (09:54)
[2023-03-28] MEDS ORDERED: Zofran 4 MG/2 ML VIAL IV PRN (10:00)
[2023-03-28 10:14] VITALS: TEMP 97
[2023-03-28] MEDS: ACETAZOLAMIDE 250 MG TABLET PO ONE (10:16)
[2023-03-28 10:24] VITALS: PULSE 58
[2023-03-28 10:28] VITALS: BP 164/82; O2SAT 95
== END 2023-03-28 10:35 | disposition home or self-care (01) ==
LOC: SDC 06:57
PROVIDERS: ATTEND Ophthalmology
DX: H25.812 Combined forms of age-related cataract, left eye (principal); E11.9 Type 2 diabetes mellitus without complications; I10 Essential (primary) hypertension
CPT/HCPCS: 36415; 80048; 82947; 93005; C1780; J0171; J2001; J2250; J3010; A9270-GY

== ENCOUNTER 2024-06-18 09:52 | Inpatient (IN) | payer MEDICARE ==
[2024-06-18] MEDS ORDERED: Zofran 4 MG/2 ML VIAL ONE (10:50)
[2024-06-18] MEDS ORDERED: SUBLIMAZE 100 MCG/2 ML ONE (10:51)
[2024-06-18] MEDS ORDERED: Sodium Chloride 0.9% 500 ML 500 ML IV ONE ×2 (10:52→11:56)
[2024-06-18 10:54] LABS: Absolute Neutrophil Ct (ANC) 2.44 x10^3/uL (1.78-5.38); BASOPHIL % 0.7 % (0.2-1.2); Basophil (Absolute #) 0.03 x10^3/uL (0.01-0.08); Eosinophil % 0.7 % (0.8-7.0); Eosinophil (Absolute #) 0.03 x10^3/uL (0.04-0.54); Hematocrit 43.8 % (40.1-51.0); Hemoglobin 14.2 g/dL (13.7-17.5); IMMATURE GRAN # 0.02 x10^3u/L (0.001-0.031); IMMATURE GRAN % 0.4 % (0.001-0.429); Lymphocyte (Absolute #) 1.16 x10^3/uL (1.32-3.57); Lymphocytes % 25.8 % (21.8-53.1); Mean Cell Volume 93.4 fL (79.0-92.2); Mean Corpuscular Hemoglobin 30.3 pg (25.7-32.2); Mean Corpuscular Hgb Concent. 32.4 g/dL (32.3-36.5); Mean Platelet Volume 12.5 fL (9.4-12.4); Monocyte (Absolute #) 0.81 x10^3/uL (0.30-0.82); Neutrophil % 54.4 % (34.0-67.9); Platelet Count 136 x10^3/uL (163-337); Red Blood Count 4.69 x10^6/uL (4.63-6.08); Red Cell Distribution Width 13.3 % (11.6-14.4); White Blood Count 4.5 x10^3/uL (4.23-9.07)
[2024-06-18] MEDS: SUBLIMAZE 100 MCG/2 ML IV ONE (10:54)
[2024-06-18] MEDS: Zofran 4 MG/2 ML VIAL IV ONE (10:54)
[2024-06-18] MEDS: Sodium Chloride 0.9% 500 ML 500 ML IV ONE ×2 (10:55→11:57)
[2024-06-18 11:09] LABS: ALBUMIN 4.7 g/dL (3.5-5.0); ANION GAP 20.6 MEQ/L (5-15); BLOOD UREA NITROGEN 23 mg/dL (9-20); CHLORIDE 101 mmol/L (98-107); Carbon Dioxide 23 mmol/L (22-30); Creatinine 1 0.92 mg/dL (0.66-1.25); EST GLOMERULAR FILTRATION RATE 84.1 ML/MIN; Glucose 148 mg/dL (74-106); LIPASE 42 U/L (23-300); SGOT/AST 47 U/L (17-59); SGPT/ALT 33 U/L (0-50); SODIUM 140 mmol/L (135-145); Total Protein 7.2 g/dL (6.3-8.2)
[2024-06-18 11:16] LABS: ALKALINE PHOSPHATASE < 20 U/L (38-126); Calcium 12.4 mg/dL (8.4-10.2); Potassium 4.9 mmol/L (3.5-5.1)
--- NOTE | 2024-06-18 11:38 | XRAY ---
Indication: Right abdomen pain and distention. Multiple contiguous axial images obtained through the abdomen and pelvis without contrast. Comparison: July 13, 2017 Lung bases again demonstrates minimal dependent atelectasis and tiny left base calcified granuloma. No infiltrate or effusion. Heart not enlarged. Stomach and small bowel loops are now abnormally fluid distended. Maximum small bowel distention up to 4.4 cm with transition point right lower quadrant. More distal ileal bowel loops appear decompressed favoring small bowel obstruction. New tiny perihepatic fluid presumed related. Normal colonic bowel gas again with scattered diverticulosis. Gallbladder again contracted with tiny gallstones. Again a few nonobstructing punctate calculi in each kidney. No walled off fluid collection or free air. Remaining liver, gallbladder, pancreas, spleen, adrenal glands, kidneys, ureters, and bladder are unremarkable for noncontrast exam. There remains moderate aortoiliac calcifications with now infrarenal fusiform aneurysm up to 4.2 cm diameter. Osseous structures intact again with osteopenia, progressive worsening mild/moderate multilevel degenerative spondylosis, and new 2-3 mm anterolisthesis L4 on L5. Stable small fatty umbilical and bilateral inguinal hernias. Impression: 1. New CT features favoring distal small bowel obstruction as detailed. Tiny perihepatic fluid may be related. 2. Again moderate arterial sclerotic disease with new distal AAA. 3. Chronic findings including colonic diverticulosis, cholelithiasis, nonobstructing bilateral renal micro-calculi, osteopenia, multilevel degenerative spondylosis, grade 1 L4 listhesis, and fatty umbilical/bilateral inguinal hernias.
--- NOTE | 2024-06-18 12:47 | ERPHSYRPT ---
- History of Present Illness Time Seen by Provider: 06/18/24 10:40 Historian: patient Exam Limitations: no limitations Patient Subjective Stated Complaint: Pt states "I vomited two times and my belly is hurting." Triage Nursing Assessment: Pt presented alert and oriented X 3, skin pwd.Pt ambulates with a slow gait, able to speak in clear full sentences. Pt resting comfortably on the bed. Physician History: 78 years old male with history of coronary artery disease with stenting, hypertension, hyperlipidemia, diabetes mellitus, appendectomy almost 60 years ago presented in the ER with complaints of off-and-on abdominal pain for the last 4 days with progressive worsening with associated abdominal distention since yesterday. Reports nausea and started vomiting this morning around 3 AM and again at 7 AM. Pain is moderate intensity dull aching, in waves and more in the periumbilical/right side with no significant aggravating or relieving factors. Denies any fever chills constipation or diarrhea. Allergies/Adverse Reactions: No Known Drug Allergies Allergy (Verified 03/28/23 07:10) Home Medications: Aspirin EC 325 mg [Ecotrin 325 MG] 325 mg PO DAILY 07/13/17 [History] Atorvastatin Calcium [Lipitor 40Mg] 40 mg PO HS 07/13/17 [History] Fenofibrate Nanocrystallized [Tricor] 48 mg PO DAILY 07/13/17 [History] Furosemide 40 mg [Lasix 40 MG] 40 mg PO BID 07/13/17 [History] Metformin HCl 1,000 mg PO BID 07/13/17 [History] Potassium Chloride 20 Meq [Klor-Con 20 MEQ] 20 meq PO BID 07/13/17 [History] Ferrous Sulfate 325 mg PO BID 05/12/18 [History] Magnesium Oxide [Magnesium] 400 mg PO BID 05/12/18 [History] Acetaminophen 325 mg [Tylenol 325 mg] 2 tab PO HS 02/24/23 [History] Bisoprolol Fumarate 5 mg PO DAILY 02/24/23 [History] Cholecalciferol (Vitamin D3) [Vitamin D] 2,000 iu PO DAILY 02/24/23 [History] diphenhydrAMINE HCL [Allergy Relief] 25 mg PO UD 02/24/23 [History] Krill Oil 500 mg PO DAILY 03/14/23 [History] Celecoxib [Celebrex] 200 mg PO DAILY 06/18/24 [History] Losartan Potassium 50 mg [Cozaar 50 MG] 50 mg PO DAILY 06/18/24 [History] Hx Tetanus, Diphtheria Vaccination/Date Given: No Hx Influenza Vaccination/Date Given: Yes Hx Pneumococcal Vaccination/Date Given: Yes Immunizations Up to Date: No Travel Risk - International Travel Have you traveled outside of the country in past 3 weeks: No - Emerging Infectious Disease Are you exhibiting symptoms associated with any current EIDs: No - Review of Systems Constitutional: No Symptoms Eyes: No Symptoms Ears, Nose, & Throat: No Symptoms Respiratory: No Symptoms Cardiac: No Symptoms Abdominal/Gastrointestinal: Abdominal Pain, Nausea, Vomiting Genitourinary Symptoms: No Symptoms Musculoskeletal: No Symptoms Skin: No Symptoms Neurological: No Symptoms Endocrine: No Symptoms Hematologic/Lymphatic: No Symptoms - Past Medical History Pertinent Past Medical History: Yes Neurological History: No Pertinent History ENT History: Glaucoma Cardiac History: Coronary Artery Disease, Hypertension Respiratory History: No Pertinent History Endocrine Medical History: Diabetes Type II Musculoskeletal History: Arthritis GI Medical History: No Pertinent History History: No Pertinent History Psycho-Social History: No Pertinent History Male Reproductive Disorders: No Pertinent History - Past Surgical History Past Surgical History: Yes Neuro Surgical History: No Pertinent History Cardiac: Cardiac Catheterization, Cardiac Stent Respiratory: No Pertinent History Gastrointestinal: Appendectomy Genitourinary: No Pertinent History Musculoskeletal: No Pertinent History Male Surgical History: No Pertinent History Significant Family History: no pertinent family hx - Social History Smoking Status: Former smoker Exposure to second hand smoke: Yes Drug Use: none - Social Determinants of Health Will the patient participate in the screening: Declined to provide - Nursing Vital Signs Nursing Vital Signs: Initial Vital Signs Temperature 97.6 F 06/18/24 10:01 Pulse Rate 86 06/18/24 10:01 Respiratory Rate 18 06/18/24 10:01 Blood Pressure 148/84 06/18/24 10:01 O2 Sat by Pulse Oximetry 95 06/18/24 10:01 Pain Scale Pain Intensity 2 - Physical Exam General Appearance: no apparent distress, alert Eye Exam: eyes nml inspection Ears, Nose, Throat Exam: normal ENT inspection Neck Exam: normal inspection, non-tender, supple, full range of motion Respiratory Exam: normal breath sounds, lungs clear Cardiovascular Exam: regular rate/rhythm, normal heart sounds Gastrointestinal/Abdomen Exam: soft, tenderness, distention, No normal bowel sounds (Hypoactive), No guarding Back Exam: normal inspection, normal range of motion Extremity Exam: normal inspection, normal range of motion Neurologic Exam: alert, oriented x 3, cooperative Skin Exam: normal color SpO2 Interpretation: normal SpO2: 96 O2 Delivery: Room Air - Course EKG Interpreted by Me: RATE (81), Sinus Rhythm, Left Belle Deviation, Left Bundle Branch Block, Q-wave, Non-specific ST Changes, Other (No change from previous) Ordered Tests: Active Orders 24 hr Category Date Time Status EKG-ER Only STAT Care 06/18/24 12:27 Active IV Insertion STAT Care 06/18/24 10:41 Active NPO (ED) STAT Care 06/18/24 10:41 Active ABDOMEN AND PELVIS W/0 CONTRAS [CT] Stat Exams 06/18/24 10:41 Completed CBC W DIFF Stat Lab 06/18/24 10:25 Completed CMP Stat Lab 06/18/24 10:25 Completed LIPASE Stat Lab 06/18/24 10:25 Completed Lactic Acid Stat Lab 06/18/24 11:22 Completed UA W/RFX UR CULTURE Stat Lab 06/18/24 10:41 Ordered Medication Summary Generic Name Dose Route Start Last Admin Trade Name Freq PRN Reason Stop Dose Admin Sodium Chloride 500 mls @ 500 mls/hr 06/18/24 11:45 06/18/24 11:57 Sodium Chloride 0.9% 500 Ml IV 06/18/24 12:44 500 mls/hr .Q1H ONE Administration Discontinued Medications Generic Name Dose Route Start Last Admin Trade Name Freq PRN Reason Stop Dose Admin Fentanyl Citrate 50 mcg 06/18/24 10:41 06/18/24 10:54 Fentanyl Citrate 100 Mcg/2 Ml* Vial IV 06/18/24 10:42 50 mcg STAT ONE Administration Fentanyl Citrate Confirm 06/18/24 10:51 Fentanyl Citrate 100 Mcg/2 Ml* Vial Administered 06/18/24 10:52 Dose 100 mcg .ROUTE .STK-MED ONE Sodium Chloride 500 mls @ 500 mls/hr 06/18/24 10:43 06/18/24 11:58 Sodium Chloride 0.9% 500 Ml IV 06/18/24 11:42 Infused .Q1H ONE Infusion Sodium Chloride Confirm 06/18/24 10:52 Sodium Chloride 0.9% 500 Ml Administered 06/18/24 10:53 Dose 500 mls @ ud IV .STK-MED ONE Sodium Chloride Confirm 06/18/24 11:56 Sodium Chloride 0.9% 500 Ml Administered 06/18/24 11:57 Dose 500 mls @ ud IV .STK-MED ONE Ondansetron HCl 4 mg 06/18/24 10:41 06/18/24 10:54 Ondansetron Hcl 4 Mg/2 Ml Vial IV 06/18/24 10:42 4 mg STAT ONE Administration Ondansetron HCl Confirm 06/18/24 10:50 Ondansetron Hcl 4 Mg/2 Ml Vial Administered 06/18/24 10:51 Dose 4 mg .ROUTE .STK-MED ONE Lab/Rad Data: Laboratory Result Diagrams 06/18/24 10:25 06/18/24 10:25 Laboratory Results 06/18/24 06/18/24 06/18/24 Range/Units 11:22 10:25 10:25 WBC 4.5 (4.23-9.07) x10^3/uL RBC 4.69 (4.63-6.08) x10^6/uL Hgb 14.2 (13.7-17.5) g/dL Hct 43.8 (40.1-51.0) % MCV 93.4 H (79.0-92.2) fL MCH 30.3 (25.7-32.2) pg MCHC 32.4 (32.3-36.5) g/dL RDW 13.3 (11.6-14.4) % Plt Count 136 L (163-337) x10^3/uL MPV 12.5 H (9.4-12.4) fL Gran % 54.4 (34.0-67.9) % Immature Gran % (Auto) 0.4 (0.001-0.429) % Nucleat RBC Rel Count 0.0 (0.00-0.2) % Eos # (Auto) 0.03 L (0.04-0.54) x10^3/uL Immature Gran # (Auto) 0.02 (0.001-0.031) x10^3u/L Absolute Lymphs (auto) 1.16 L (1.32-3.57) x10^3/uL Absolute Monos (auto) 0.81 (0.30-0.82) x10^3/uL Absolute Nucleated RBC 0.00 (0.00-0.012) x10^3u/L Lymphocytes % 25.8 (21.8-53.1) % Monocytes % 18.0 H (5.3-12.2) % Eosinophils % 0.7 L (0.8-7.0) % Basophils % 0.7 (0.2-1.2) % Absolute Granulocytes 2.44 (1.78-5.38) x10^3/uL Basophils # 0.03 (0.01-0.08) x10^3/uL Sodium 140 (135-145) mmol/L Potassium 4.9 (3.5-5.1) mmol/L Chloride 101 (98-107) mmol/L Carbon Dioxide 23 (22-30) mmol/L Anion Gap 20.6 H (5-15) MEQ/L BUN 23 H (9-20) mg/dL Creatinine 0.92 (0.66-1.25) mg/dL Estimated GFR 84.1 ML/MIN Glucose 148 H (74-106) mg/dL Lactic Acid 3.4 H (0.4-2.0) Calcium 12.4 H* (8.4-10.2) mg/dL Total Bilirubin 2.70 H (0.2-1.3) mg/dL AST 47 (17-59) U/L ALT 33 (0-50) U/L Alkaline Phosphatase < 20 L (38-126) U/L Serum Total Protein 7.2 (6.3-8.2) g/dL Albumin 4.7 (3.5-5.0) g/dL Lipase 42 (23-300) U/L - Progress Progress: improved, pain not gone completely, re-examined Progress Note: 06/18/24 12:42 78 years old is evaluated in the ER for abdominal pain with distention and nausea vomiting. Has abdominal distention with some tenderness in the periumbilical and right mid to lower half. Hypoactive bowel sounds. He is given fluids and symptomatic treatment, on reevaluation he is feeling much better. Workup showed normal white count, chemistries with a lactate of 3.4, gap of 20/glucose of 148, normal bicarb and calcium of 12.4 with his baseline around 11. I believe patient has dehydration. Obtain CT abdomen pelvis without contrast which showed small bowel obstruction with a transition point at right lower quadrant and maximum diameter of 4.4 cm. Also has 4.2 cm infrarenal fusiform aneurysm. Patient has good femoral pulses. I believe this is an incidental finding and needs outpatient follow-up for monitoring. I have discussed with Dr. Sudhir Cooper, reviewed history, exam findings/workup, recommended and agreed with NGT and admission to hospitalist service in consultation with general surgery. I have discussed with Dr. Mascorro, reviewed history is/exam/workup and general surgery recommendations, patient is accepted for admission to hospitalist service. I have shared the results of workup with patient and her daughter in detail and plan of admission which they understand and agree. Complexity of problems addressed: High acuity Complexity of data reviewed/analyzed: High/extensive Risk of complication: High Discussed with : Heather, Other (Dr. Mascorro hospitalist) Will see patient in: hospital (observation) Counseled pt/family regarding: lab results, diagnosis, need for follow-up, rad results Medical Desision Making - Independent Historian Additional History obtained from: Child - Discussion of managment Care discussed with:: specialist (Dr. Sudhir Cooper general surgeon and Dr. Mascorro hospitalist) Reviewed:: Test results Agreed on:: Treatment plan, place in obs Will see patient: in hospital - Diagnostic Testing Diagnostic test were ordered, analyzed, and reviewed by me: Yes Radiological Interpretation: Reviewed by me - Risk of complications The pt has a mod risk of morbidity or mortality based on: Need for prescription drug management The pt has a high risk of morbidity or mortality based on: Decision regarding hospitilization or escalation of hosp level of care - Departure Departure Disposition: Observation Clinical Impression: Small bowel obstruction, Dehydration, Abdominal aortic aneurysm (AAA) 3.0 cm to 5.5 cm in diameter in male Condition: Stable Critical Care Time: No Referrals: JUANITA GORDON DO [Primary Care Provider, [facility]] - Follow up/PCP as directed
--- NOTE | 2024-06-18 14:43 | PCM.HP ---
<SHERYL GEORGE - Last Filed: 06/18/24 16:29> History of Present Illness - Chief Complaint Chief Complaint: SBO Date: 06/18/24 History of Present Illness: is a 78 year old male with pmhx of CAD(s/p stent x1), DM, and glaucoma presented to ED 06/18/24 with complaints of 4-5 days of abdominal pain, distention, and two episodes of vomiting that occurred today. Patient states he did have a bowel movement today. On examination in ED, he was noted to have significant abdominal distention with mild to moderate tenderness in the periumbilical region and right [id number] abdomen. Bowel sounds were hypoactive. Denies fever,cough, sob, cp, MCLEOD, dizziness,or diarrhea. Upon arrival vitals were stable. Lab findings remarkable for a normal WBC count, normal serum chemistries, and a lactate of 3.4, likely related to dehydration. Anion gap was elevated at 20. Calcium was elevated at 12.4 mg/dL, and total bilirubin was mildly elevated at 2.7 mg/dL. A non-contrast CT scan of the abdomen and pelvis revealed a small bowel obstruction with a clear transition point in the right lower quadrant, and a maximal bowel diameter of 4.4 cm. An incidental 4.2 cm infrarenal fusiform abdominal aortic aneurysm was also noted. Patient noted with strong femoral pulses bilaterally and no clinical evidence of aneurysmal rupture. This finding is stable and appropriate for outpatient vascular monitoring. The case was discussed with Dr. Sudhir Cooper in ED, who reviewed the clinical presentation and imaging. Plan to place an NG tube and admit the patient to the hospitalist service for supportive care, in consultation with general surgery for further evaluation and operative planning as needed. - Review of Systems Constitutional: No Symptoms Eyes: Other (periorbital edema left eye) Ears, Nose, & Throat: No Symptoms Respiratory: No Symptoms Cardiac: No Symptoms Abdominal/Gastrointestinal: Abdominal Pain, Nausea, Vomiting Genitourinary Symptoms: No Symptoms Musculoskeletal: No Symptoms Skin: No Symptoms Neurological: No Symptoms Psychological: No Symptoms Endocrine: No Symptoms Hematologic/Lymphatic: No Symptoms Immunological/Allergic: No Symptoms Medications & Allergies Home Medications: Home Medication List Aspirin EC 325 mg [Ecotrin 325 MG] 81 mg PO DAILY 07/13/17 [History Confirmed 06/18/24] Atorvastatin Calcium [Lipitor 40Mg] 40 mg PO HS 07/13/17 [History Confirmed 06/18/24] Fenofibrate Nanocrystallized [Tricor] 48 mg PO HS 07/13/17 [History Confirmed 06/18/24] Furosemide 40 mg [Lasix 40 MG] 40 mg PO BID 07/13/17 [History Confirmed 06/18/24] Metformin HCl 1,000 mg PO BID 07/13/17 [History Confirmed 06/18/24] Potassium Chloride 20 Meq [Klor-Con 20 MEQ] 20 meq PO BID 07/13/17 [History Confirmed 06/18/24] Ferrous Sulfate 65 mg PO DAILY 05/12/18 [History Confirmed 06/18/24] Magnesium Oxide [Magnesium] 400 mg PO BID 05/12/18 [History Confirmed 06/18/24] Acetaminophen 325 mg [Tylenol 325 mg] 2 tab PO HS 02/24/23 [History Confirmed 06/18/24] Bisoprolol Fumarate 5 mg PO DAILY 02/24/23 [History Confirmed 06/18/24] Cholecalciferol (Vitamin D3) [Vitamin D] 2,000 iu PO DAILY 02/24/23 [History Confirmed 06/18/24] diphenhydrAMINE HCL [Allergy Relief] 25 mg PO UD PRN 02/24/23 [History Confirmed 06/18/24] Krill Oil 500 mg PO DAILY 03/14/23 [History Confirmed 06/18/24] Celecoxib [Celebrex] 200 mg PO DAILY 06/18/24 [History Confirmed 06/18/24] Losartan Potassium 50 mg [Cozaar 50 MG] 50 mg PO DAILY 06/18/24 [History Confirmed 06/18/24] Allergies/Adverse Reactions: Allergies Allergy/AdvReac Type Severity Reaction Status Date / Time No Known Drug Allergies Allergy Verified 03/28/23 07:10 - Past Medical History Past Medical History: Yes Neurological History: No Pertinent History ENT History: Glaucoma Cardiac History: Coronary Artery Disease, Hypertension Respiratory History: No Pertinent History Endocrine Medical History: Diabetes Type II Musculoskelatal History: Arthritis GI Medical History: No Pertinent History History: No Pertinent History Pyscho-Social History: No Pertinent History Male Reproductive Disorders: No Pertinent History - Past Surgical History Past Surgical History: Yes Neuro Surgical History: No Pertinent History Cardiac History: Cardiac Catheterization, Cardiac Stent Respiratory Surgery: No Pertinent History GI Surgical History: Appendectomy Genitourinary Surgical Hx: No Pertinent History Musculskeletal Surgical Hx: No Pertinent History Male Surgical History: No Pertinent History Significant Family History: heart disease, cancer, stroke - Social History Smoking Status: Former smoker Exposure to second hand smoke: Yes Alcohol: Rarely Drug Use: none - Social Determinants of Health Will the patient participate in the screening: Declined to provide - Physical Exam Vital Signs: Vital Signs - 24 hr Temp Pulse Resp BP BP Pulse Ox 06/18/24 14:30 82 21 117/71 95 06/18/24 14:00 86 21 128/68 98 06/18/24 13:30 82 20 106/65 95 06/18/24 13:00 79 21 127/67 92 L 06/18/24 12:50 96 06/18/24 12:30 84 22 134/69 89 L 06/18/24 12:00 78 19 123/62 96 06/18/24 11:30 80 20 99/53 95 06/18/24 11:19 74 22 99/63 92 L 06/18/24 11:00 76 24 123/69 90 L 06/18/24 10:31 80 22 102/70 93 L 06/18/24 10:02 81 18 148/84 93 L 06/18/24 10:01 97.6 F 86 18 148/84 95 General Appearance: no apparent distress Neurologic Exam: alert, oriented x 3, cooperative Eye Exam: other (left eye with periorbital edema) Ears, Nose, Throat Exam: normal ENT inspection Neck Exam: normal inspection Respiratory Exam: normal breath sounds, lungs clear Cardiovascular Exam: regular rate/rhythm, normal heart sounds Gastrointestinal/Abdomen Exam: distention, other (hypoactive BS x 4 quads) Rectal Exam: deferred Back Exam: normal inspection Extremity Exam: swelling (BLE 1+ pitting) Skin Exam: normal color Results - Labs Lab/Micro Results: Lab Results-Last 24 Hours 06/18/24 06/18/24 06/18/24 Range/Units 10:25 10:25 11:22 WBC 4.5 (4.23-9.07) x10^3/uL RBC 4.69 (4.63-6.08) x10^6/uL Hgb 14.2 (13.7-17.5) g/dL Hct 43.8 (40.1-51.0) % MCV 93.4 H (79.0-92.2) fL MCH 30.3 (25.7-32.2) pg MCHC 32.4 (32.3-36.5) g/dL RDW 13.3 (11.6-14.4) % Plt Count 136 L (163-337) x10^3/uL MPV 12.5 H (9.4-12.4) fL Gran % 54.4 (34.0-67.9) % Immature Gran % (Auto) 0.4 (0.001-0.429) % Nucleat RBC Rel Count 0.0 (0.00-0.2) % Eos # (Auto) 0.03 L (0.04-0.54) x10^3/uL Immature Gran # (Auto) 0.02 (0.001-0.031) x10^3u/L Absolute Lymphs (auto) 1.16 L (1.32-3.57) x10^3/uL Absolute Monos (auto) 0.81 (0.30-0.82) x10^3/uL Absolute Nucleated RBC 0.00 (0.00-0.012) x10^3u/L Lymphocytes % 25.8 (21.8-53.1) % Monocytes % 18.0 H (5.3-12.2) % Eosinophils % 0.7 L (0.8-7.0) % Basophils % 0.7 (0.2-1.2) % Absolute Granulocytes 2.44 (1.78-5.38) x10^3/uL Basophils # 0.03 (0.01-0.08) x10^3/uL Sodium 140 (135-145) mmol/L Potassium 4.9 (3.5-5.1) mmol/L Chloride 101 (98-107) mmol/L Carbon Dioxide 23 (22-30) mmol/L Anion Gap 20.6 H (5-15) MEQ/L BUN 23 H (9-20) mg/dL Creatinine 0.92 (0.66-1.25) mg/dL Estimated GFR 84.1 ML/MIN Glucose 148 H (74-106) mg/dL Lactic Acid 3.4 H (0.4-2.0) Calcium 12.4 H* (8.4-10.2) mg/dL Total Bilirubin 2.70 H (0.2-1.3) mg/dL AST 47 (17-59) U/L ALT 33 (0-50) U/L Alkaline Phosphatase < 20 L (38-126) U/L Serum Total Protein 7.2 (6.3-8.2) g/dL Albumin 4.7 (3.5-5.0) g/dL Lipase 42 (23-300) U/L 06/18/24 Range/Units 13:36 WBC (4.23-9.07) x10^3/uL RBC (4.63-6.08) x10^6/uL Hgb (13.7-17.5) g/dL Hct (40.1-51.0) % MCV (79.0-92.2) fL MCH (25.7-32.2) pg MCHC (32.3-36.5) g/dL RDW (11.6-14.4) % Plt Count (163-337) x10^3/uL MPV (9.4-12.4) fL Gran % (34.0-67.9) % Immature Gran % (Auto) (0.001-0.429) % Nucleat RBC Rel Count (0.00-0.2) % Eos # (Auto) (0.04-0.54) x10^3/uL Immature Gran # (Auto) (0.001-0.031) x10^3u/L Absolute Lymphs (auto) (1.32-3.57) x10^3/uL Absolute Monos (auto) (0.30-0.82) x10^3/uL Absolute Nucleated RBC (0.00-0.012) x10^3u/L Lymphocytes % (21.8-53.1) % Monocytes % (5.3-12.2) % Eosinophils % (0.8-7.0) % Basophils % (0.2-1.2) % Absolute Granulocytes (1.78-5.38) x10^3/uL Basophils # (0.01-0.08) x10^3/uL Sodium (135-145) mmol/L Potassium (3.5-5.1) mmol/L Chloride (98-107) mmol/L Carbon Dioxide (22-30) mmol/L Anion Gap (5-15) MEQ/L BUN (9-20) mg/dL Creatinine (0.66-1.25) mg/dL Estimated GFR ML/MIN Glucose (74-106) mg/dL Lactic Acid 2.2 H (0.4-2.0) Calcium (8.4-10.2) mg/dL Total Bilirubin (0.2-1.3) mg/dL AST (17-59) U/L ALT (0-50) U/L Alkaline Phosphatase (38-126) U/L Serum Total Protein (6.3-8.2) g/dL Albumin (3.5-5.0) g/dL Lipase (23-300) U/L - Radiology Impressions Radiology Exams & Impressions: Radiology Procedures Category Date Time Status ABDOMEN AND PELVIS W/0 CONTRAS [CT] Stat Exams 06/18/24 10:41 Completed Assessment/Plan (1) Small bowel obstruction Current Visit: Yes Status: Acute Assessment & Plan: -CT abd/pelvis reviewed showing a small bowel obstruction with a transition point in the right lower quadrant and a maximal diameter of 4.4 cm -General surgery consulted Dr.Brandon Cooper has accepted patient - appreciate recs -Place NG for decompression -Keep NPO -Continue IVF -Monitor for signs of worsening obstruction or strangulation (fever, leukocytosis, increasing pain, lactic acidosis) Code(s): K56.609 - UNSP INTESTNL OBST, UNSP TO PARTIAL VERSUS COMPLETE OBST (2) Hypercalcemia Current Visit: Yes Status: Acute Assessment & Plan: -Reassess calcium once rehydrated -Monitor for symptoms (AMS, constipation, arrhythmia, polyuria) -Consider PTH level outpatient if remains elevated -Avoid calcium-containing medications and thiazide Code(s): E83.52 - HYPERCALCEMIA (3) Total bilirubin, elevated Current Visit: Yes Status: Acute Assessment & Plan: -Trend bilirubin as hydration improves -Monitor for signs of cholestasis or hemolysis Code(s): R17 - UNSPECIFIED JAUNDICE (4) Type 2 diabetes mellitus Current Visit: Yes Status: Acute Assessment & Plan: -Monitor blood glucose q4h while NPO and hold oral agents -Use sliding scale insulin or basal insulin as needed -A1c (5) CAD (coronary artery disease) Current Visit: Yes Status: Acute Assessment & Plan: -continue home meds -Monitor telemetry Code(s): I25.10 - ATHSCL HEART DISEASE OF [place] CORONARY ARTERY W/O ANG PCTRS (6) Abdominal aortic aneurysm (AAA) 3.0 cm to 5.5 cm in diameter in male Current Visit: Yes Status: Acute Assessment & Plan: -No acute intervention needed during this admission -Follow up with vascular surgery as OP with surveillance imaging Code(s): I71.40 - ABDOMINAL AORTIC ANEURYSM, WITHOUT RUPTURE, UNSPECIFIED (7) Dehydration Current Visit: Yes Status: Acute Assessment & Plan: -Continue IVF -Monitor input/output and daily weights -Recheck lactate and renal/lytes after volume repletion VTE: SCD - hold anticoag in case of surgical intervention PPI: protonix Dispo: 2-3 days Code status: Full code Code(s): E86.0 - DEHYDRATION Telemedicine Encounter - Telemedicine Encounter Telemedicine Encounter: "The entirety of this encounter was performed via Telemedicine" This visit was performed using real-time audio and video connection between my location and thepatients locationwith the assistance of a surrogateat the patients location. Written or verbal consent was obtained from the patient/guardian to perform this visit [facility]. Any patient questions regarding the telemedicine interaction were answered. <CHRISTINE DIAZ - Last Filed: 06/18/24 22:18> History of Present Illness - Chief Complaint History of Present Illness: is a 78 year old male. - Physical Exam Vital Signs: Vital Signs - 24 hr Temp Pulse Resp BP BP Pulse Ox 06/18/24 19:09 97.1 F 87 18 130/68 92 L 06/18/24 18:57 94 L 06/18/24 17:33 97.3 F 90 22 156/74 93 L 06/18/24 15:14 97.3 F 90 22 156/74 93 L 06/18/24 14:30 82 21 117/71 95 06/18/24 14:00 86 21 128/68 98 06/18/24 13:30 82 20 106/65 95 06/18/24 13:00 79 21 127/67 92 L 06/18/24 12:50 96 06/18/24 12:30 84 22 134/69 89 L 06/18/24 12:00 78 19 123/62 96 06/18/24 11:30 80 20 99/53 95 06/18/24 11:19 74 22 99/63 92 L 06/18/24 11:00 76 24 123/69 90 L 06/18/24 10:31 80 22 102/70 93 L 06/18/24 10:02 81 18 148/84 93 L 06/18/24 10:01 97.6 F 86 18 148/84 95 Results - Labs Lab/Micro Results: Lab Results-Last 24 Hours 06/18/24 06/18/24 06/18/24 Range/Units 10:25 10:25 11:22 WBC 4.5 (4.23-9.07) x10^3/uL RBC 4.69 (4.63-6.08) x10^6/uL Hgb 14.2 (13.7-17.5) g/dL Hct 43.8 (40.1-51.0) % MCV 93.4 H (79.0-92.2) fL MCH 30.3 (25.7-32.2) pg MCHC 32.4 (32.3-36.5) g/dL RDW 13.3 (11.6-14.4) % Plt Count 136 L (163-337) x10^3/uL MPV 12.5 H (9.4-12.4) fL Gran % 54.4 (34.0-67.9) % Immature Gran % (Auto) 0.4 (0.001-0.429) % Nucleat RBC Rel Count 0.0 (0.00-0.2) % Eos # (Auto) 0.03 L (0.04-0.54) x10^3/uL Immature Gran # (Auto) 0.02 (0.001-0.031) x10^3u/L Absolute Lymphs (auto) 1.16 L (1.32-3.57) x10^3/uL Absolute Monos (auto) 0.81 (0.30-0.82) x10^3/uL Absolute Nucleated RBC 0.00 (0.00-0.012) x10^3u/L Lymphocytes % 25.8 (21.8-53.1) % Monocytes % 18.0 H (5.3-12.2) % Eosinophils % 0.7 L (0.8-7.0) % Basophils % 0.7 (0.2-1.2) % Absolute Granulocytes 2.44 (1.78-5.38) x10^3/uL Basophils # 0.03 (0.01-0.08) x10^3/uL Sodium 140 (135-145) mmol/L Potassium 4.9 (3.5-5.1) mmol/L Chloride 101 (98-107) mmol/L Carbon Dioxide 23 (22-30) mmol/L Anion Gap 20.6 H (5-15) MEQ/L BUN 23 H (9-20) mg/dL Creatinine 0.92 (0.66-1.25) mg/dL Estimated GFR 84.1 ML/MIN Glucose 148 H (74-106) mg/dL POC Glucometer (74 to 106) mg/dL Lactic Acid 3.4 H (0.4-2.0) Calcium 12.4 H* (8.4-10.2) mg/dL Total Bilirubin 2.70 H (0.2-1.3) mg/dL AST 47 (17-59) U/L ALT 33 (0-50) U/L Alkaline Phosphatase < 20 L (38-126) U/L Serum Total Protein 7.2 (6.3-8.2) g/dL Albumin 4.7 (3.5-5.0) g/dL Lipase 42 (23-300) U/L 06/18/24 06/18/24 06/18/24 Range/Units 13:36 16:40 17:00 WBC (4.23-9.07) x10^3/uL RBC (4.63-6.08) x10^6/uL Hgb (13.7-17.5) g/dL Hct (40.1-51.0) % MCV (79.0-92.2) fL MCH (25.7-32.2) pg MCHC (32.3-36.5) g/dL RDW (11.6-14.4) % Plt Count (163-337) x10^3/uL MPV (9.4-12.4) fL Gran % (34.0-67.9) % Immature Gran % (Auto) (0.001-0.429) % Nucleat RBC Rel Count (0.00-0.2) % Eos # (Auto) (0.04-0.54) x10^3/uL Immature Gran # (Auto) (0.001-0.031) x10^3u/L Absolute Lymphs (auto) (1.32-3.57) x10^3/uL Absolute Monos (auto) (0.30-0.82) x10^3/uL Absolute Nucleated RBC (0.00-0.012) x10^3u/L Lymphocytes % (21.8-53.1) % Monocytes % (5.3-12.2) % Eosinophils % (0.8-7.0) % Basophils % (0.2-1.2) % Absolute Granulocytes (1.78-5.38) x10^3/uL Basophils # (0.01-0.08) x10^3/uL Sodium (135-145) mmol/L Potassium (3.5-5.1) mmol/L Chloride (98-107) mmol/L Carbon Dioxide (22-30) mmol/L Anion Gap (5-15) MEQ/L BUN (9-20) mg/dL Creatinine (0.66-1.25) mg/dL Estimated GFR ML/MIN Glucose (74-106) mg/dL POC Glucometer 136 H (74 to 106) mg/dL Lactic Acid 2.2 H 1.9 (0.4-2.0) Calcium (8.4-10.2) mg/dL Total Bilirubin (0.2-1.3) mg/dL AST (17-59) U/L ALT (0-50) U/L Alkaline Phosphatase (38-126) U/L Serum Total Protein (6.3-8.2) g/dL Albumin (3.5-5.0) g/dL Lipase (23-300) U/L 06/18/24 06/18/24 Range/Units 17:19 20:19 WBC (4.23-9.07) x10^3/uL RBC (4.63-6.08) x10^6/uL Hgb (13.7-17.5) g/dL Hct (40.1-51.0) % MCV (79.0-92.2) fL MCH (25.7-32.2) pg MCHC (32.3-36.5) g/dL RDW (11.6-14.4) % Plt Count (163-337) x10^3/uL MPV (9.4-12.4) fL Gran % (34.0-67.9) % Immature Gran % (Auto) (0.001-0.429) % Nucleat RBC Rel Count (0.00-0.2) % Eos # (Auto) (0.04-0.54) x10^3/uL Immature Gran # (Auto) (0.001-0.031) x10^3u/L Absolute Lymphs (auto) (1.32-3.57) x10^3/uL Absolute Monos (auto) (0.30-0.82) x10^3/uL Absolute Nucleated RBC (0.00-0.012) x10^3u/L Lymphocytes % (21.8-53.1) % Monocytes % (5.3-12.2) % Eosinophils % (0.8-7.0) % Basophils % (0.2-1.2) % Absolute Granulocytes (1.78-5.38) x10^3/uL Basophils # (0.01-0.08) x10^3/uL Sodium 142 (135-145) mmol/L Potassium 3.7 D (3.5-5.1) mmol/L Chloride 100 (98-107) mmol/L Carbon Dioxide 28 (22-30) mmol/L Anion Gap 17.6 H (5-15) MEQ/L BUN 24 H (9-20) mg/dL Creatinine 1.07 (0.66-1.25) mg/dL Estimated GFR 70.2 ML/MIN Glucose 142 H (74-106) mg/dL POC Glucometer 128 H (74 to 106) mg/dL Lactic Acid (0.4-2.0) Calcium 12.1 H* (8.4-10.2) mg/dL Total Bilirubin 2.80 H (0.2-1.3) mg/dL AST 39 (17-59) U/L ALT 29 (0-50) U/L Alkaline Phosphatase 38 (38-126) U/L Serum Total Protein 7.2 (6.3-8.2) g/dL Albumin 4.5 (3.5-5.0) g/dL Lipase (23-300) U/L Accuchecks Date 06/18/24 - Radiology Impressions Radiology Exams & Impressions: Radiology Procedures Category Date Time Status ABDOMEN AND PELVIS W/0 CONTRAS [CT] Stat Exams 06/18/24 10:41 Completed CHEST 1 VIEW (PORTABLE) Stat Exams 06/18/24 16:10 Completed SMALL BOWEL SERIES Routine Exams 06/19/24 07:00 Ordered - Other Procedures and Tests Respiratory Therapy 06/18/24 18:50 Oxygen Nasal Cannula 4 lpm Telemedicine Encounter - Telemedicine Encounter Telemedicine Encounter: "The entirety of this encounter was performed via Telemedicine" This visit was performed using real-time audio and video connection between my location and thepatients locationwith the assistance of a surrogateat the patients location. Written or verbal consent was obtained from the patient/guardian to perform this visit using[facility] [employer] technology. Any patient questions regarding the telemedicine interaction were answered. JACKIE Encounter - JACKIE Encounter Attestation JACKIE Encounter Attestation: "ANJANA Penaloza andhavediscussed pertinent aspects of their care with Sheryl Rashid agree with the history, physical exam (any modifications based on my personal exam will be noted below), assessment, and plan as outlined in original note. Please see immediately below for my summary of findings and additional assessment and plan along with any meaningful corrections/explanations to the Subjective/Objective portions of the JACKIE note will be noted." My portion of the encounter took place via telemedicine. -SBO with remote history of appendectomy. Surgery consulted, recommended NG tube placement which has relieved patient's symptoms. Will continue conservative management with NPO, NGT and IV fluids.
[2024-06-18] MEDS ORDERED: HUMALOG SQ PRN (15:31)
[2024-06-18] MEDS ORDERED: Narcan 0.4 MG/ML IV PRN (16:43)
[2024-06-18] MEDS ORDERED: CHLORASEPTIC SPRAY 180 ML PO PRN (16:46)
--- NOTE | 2024-06-18 16:58 | XRAY ---
Indication: NG tube placement. Comparison: July 13, 2017 Portable chest demonstrates new NG tube traversing chest with tip in proximal stomach. Lungs better inflated and now clear again with incidental tiny left base calcified granuloma. Heart not enlarged. Bony thorax intact again with mild degenerative changes. No acute cardiopulmonary abnormalities.
[2024-06-18] MEDS: Sodium Chloride 0.9% 1000 ML 1,000 ML IV SCH (17:13)
[2024-06-18] MEDS: PROTONIX 40 MG IV IV SCH (17:30)
[2024-06-18 17:38] LABS: ALBUMIN 4.5 g/dL (3.5-5.0); ANION GAP 17.6 MEQ/L (5-15); BILIRUBIN,TOTAL 2.8 mg/dL (0.2-1.3); Creatinine 1 1.07 mg/dL (0.66-1.25); EST GLOMERULAR FILTRATION RATE 70.2 ML/MIN; Potassium 3.7 mmol/L (3.5-5.1); Total Protein 7.2 g/dL (6.3-8.2)
[2024-06-18 17:55] LABS: Calcium 12.1 mg/dL (8.4-10.2)
[2024-06-18] MEDS: Hydromorphone 1 mg/ml Injection IV PRN (18:31)
[2024-06-18] MEDS: MAG-OX 400 PO SCH (21:51)
[2024-06-18] MEDS ORDERED: ZOCOR 20MG ONE (21:51)
[2024-06-18] MEDS: Klor Con PO SCH (21:51)
[2024-06-18] MEDS: FENOFIBRATE NANOCRYSTALLIZED 48 MG PO SCH (21:51)
[2024-06-18] MEDS: ZOCOR 20MG PO SCH (21:54)
[2024-06-18] MEDS ORDERED: LIPITOR 40MG PO SCH (22:00)
[2024-06-18] MEDS ORDERED: NON-FORMULARY ITEM (Potassium Chloride 20 Meq [Klor-Con 20 Meq] 20 MEQ Tab) PO SCH (22:00)
[2024-06-18] MEDS ORDERED: NON-FORMULARY ITEM (Magnesium Oxide [Magnesium] 500 MG Capsule) PO SCH (22:00)
[2024-06-19 02:42] LABS: Appearance Clear (Clear); Bacteria None Seen /HPF (None Seen); Bilirubin Negative (Negative); Blood Negative (Negative); Epithelial Cells None Seen /HPF (None Seen); Glucose, Urine Negative (Negative); Ketones Trace (Negative); Leukocyte Esterase Negative (Negative); Nitrite Negative (Negative); Ph 5.5 (4.6-8.0); Protein,Urine Dip 30 (Negative); RBC 0-2 /HPF (0-5); WBC 0-2 /HPF (0-5)
[2024-06-19 05:23] LABS: Absolute Neutrophil Ct (ANC) 2.74 x10^3/uL (1.78-5.38); BASOPHIL % 0.2 % (0.2-1.2); Basophil (Absolute #) 0.01 x10^3/uL (0.01-0.08); Eosinophil % 0.9 % (0.8-7.0); Eosinophil (Absolute #) 0.04 x10^3/uL (0.04-0.54); Hemoglobin 13.1 g/dL (13.7-17.5); IMMATURE GRAN # 0.02 x10^3u/L (0.001-0.031); IMMATURE GRAN % 0.4 % (0.001-0.429); Lymphocyte (Absolute #) 1.04 x10^3/uL (1.32-3.57); Lymphocytes % 22.4 % (21.8-53.1); Mean Cell Volume 93.9 fL (79.0-92.2); Mean Corpuscular Hemoglobin 30.8 pg (25.7-32.2); Mean Corpuscular Hgb Concent. 32.8 g/dL (32.3-36.5); Mean Platelet Volume 11.6 fL (9.4-12.4); Monocyte (Absolute #) 0.79 x10^3/uL (0.30-0.82); Neutrophil % 59.1 % (34.0-67.9); Platelet Count 125 x10^3/uL (163-337); Red Blood Count 4.26 x10^6/uL (4.63-6.08); Red Cell Distribution Width 13.5 % (11.6-14.4); White Blood Count 4.6 x10^3/uL (4.23-9.07)
[2024-06-19 05:36] LABS: ALBUMIN 4.1 g/dL (3.5-5.0); ANION GAP 14.8 MEQ/L (5-15); Calcium 11.3 mg/dL (8.4-10.2); Creatinine 1 0.95 mg/dL (0.66-1.25); EST GLOMERULAR FILTRATION RATE 80.9 ML/MIN; Potassium 3.8 mmol/L (3.5-5.1); Total Protein 6.6 g/dL (6.3-8.2)
[2024-06-19] MEDS ORDERED: MEDICATION INTERVENTION MC SCH (07:30)
--- NOTE | 2024-06-19 09:54 | PCM.NOTE ---
Date and Time: 06/19/24 0951 Subjective Assessment: is a 78 year old male with pmhx of CAD(s/p stent x1), DM, and glaucoma presented to ED 06/18/24 with complaints of 4-5 days of abdominal pain, distention, and two episodes of vomiting that occurred today. Patient states he did have a bowel movement today. On examination in ED, he was noted to have significant abdominal distention with mild to moderate tenderness in the periumbilical region and right [id number] abdomen. Bowel sounds were hypoactive. Denies fever,cough, sob, cp, MCLEOD, dizziness,or diarrhea. Upon arrival vitals were stable. Lab findings remarkable for a normal WBC count, normal serum chemistries, and a lactate of 3.4, likely related to dehydration. Anion gap was elevated at 20. Calcium was elevated at 12.4 mg/dL, and total bilirubin was mildly elevated at 2.7 mg/dL. A non-contrast CT scan of the abdomen and pelvis revealed a small bowel obstruction with a clear transition point in the right lower quadrant, and a maximal bowel diameter of 4.4 cm. An incidental 4.2 cm infrarenal fusiform abdominal aortic aneurysm was also noted. Patient noted with strong femoral pulses bilaterally and no clinical evidence of aneurysmal rupture. This finding is stable and appropriate for outpatient vascular monitoring. The case was discussed with Dr. Sudhir Cooper in ED, who reviewed the clinical presentation and imaging. Plan to place an NG tube and admit the patient to the hospitalist service for supportive care, in consultation with general surgery for further evaluation and operative planning as needed. 06/19/24: Met with patient and family at bedside. Patient is admitted with a CT-confirmed small bowel obstruction. An NG tube was placed in the ED and is currently clam ped per surgical team's request to facilitate a small bowel follow-through study. Patient denies nausea or vomiting at this time. He reports a history of chronic back pain, which is currently his primary source of discomfort. Will continue to monitor for signs of clinical deterioration, tolerance of conservative management, and radiographic progression. - Review of Systems Constitutional: No Symptoms Eyes: No Symptoms Ears, Nose, & Throat: No Symptoms Respiratory: No Symptoms Cardiac: No Symptoms Abdominal/Gastrointestinal: Abdominal Pain Genitourinary Symptoms: No Symptoms Musculoskeletal: Back Pain Skin: No Symptoms Neurological: No Symptoms Psychological: No Symptoms Endocrine: No Symptoms Hematologic/Lymphatic: No Symptoms Immunological/Allergic: No Symptoms Objective Exam General Appearance: no apparent distress Neurologic Exam: alert, oriented x 3, cooperative Skin Exam: normal color Eye Exam: PERRL Ears, Nose, Throat Exam: normal ENT inspection Neck Exam: normal inspection Respiratory Exam: normal breath sounds, lungs clear Cardiovascular Exam: regular rate/rhythm, normal heart sounds Gastrointestinal/Abdomen Exam: distention Extremity Exam: swelling (BLE +1) Back Exam: normal inspection Male Genitalia Exam: deferred Rectal Exam: deferred Objective Data Vital Signs: Vital Signs - 24 hr Temp Pulse Resp BP BP Pulse Ox 06/19/24 09:05 93 L 06/19/24 07:42 98 F 84 20 158/72 95 06/19/24 04:00 97.2 F 64 18 168/74 92 L 06/19/24 00:00 97.1 F 80 20 137/84 91 L 06/18/24 19:09 97.1 F 87 18 130/68 92 L 06/18/24 18:57 94 L 06/18/24 17:33 97.3 F 90 22 156/74 93 L 06/18/24 15:14 97.3 F 90 22 156/74 93 L 06/18/24 14:30 82 21 117/71 95 06/18/24 14:00 86 21 128/68 98 06/18/24 13:30 82 20 106/65 95 06/18/24 13:00 79 21 127/67 92 L 06/18/24 12:50 96 06/18/24 12:30 84 22 134/69 89 L 06/18/24 12:00 78 19 123/62 96 06/18/24 11:30 80 20 99/53 95 06/18/24 11:19 74 22 99/63 92 L 06/18/24 11:00 76 24 123/69 90 L 06/18/24 10:31 80 22 102/70 93 L 06/18/24 10:02 81 18 148/84 93 L 06/18/24 10:01 97.6 F 86 18 148/84 95 Pain Assessment - Last Documented Pain Intensity 6 Pain Scale Used 0-10 Pain Scale Intake and Output: Intake & Output 06/16/24 06/17/24 06/18/24 06/19/24 11:59 11:59 11:59 11:59 Intake Total 1054 Output Total 2600 Balance -1546 Weight 100.8 kg 97.7 kg Lab Results: Lab Results-Last 24 Hours 06/18/24 06/18/24 06/18/24 Range/Units 02:32 10:25 10:25 WBC 4.5 (4.23-9.07) x10^3/uL RBC 4.69 (4.63-6.08) x10^6/uL Hgb 14.2 (13.7-17.5) g/dL Hct 43.8 (40.1-51.0) % MCV 93.4 H (79.0-92.2) fL MCH 30.3 (25.7-32.2) pg MCHC 32.4 (32.3-36.5) g/dL RDW 13.3 (11.6-14.4) % Plt Count 136 L (163-337) x10^3/uL MPV 12.5 H (9.4-12.4) fL Gran % 54.4 (34.0-67.9) % Immature Gran % (Auto) 0.4 (0.001-0.429) % Nucleat RBC Rel Count 0.0 (0.00-0.2) % Eos # (Auto) 0.03 L (0.04-0.54) x10^3/uL Immature Gran # (Auto) 0.02 (0.001-0.031) x10^3u/L Absolute Lymphs (auto) 1.16 L (1.32-3.57) x10^3/uL Absolute Monos (auto) 0.81 (0.30-0.82) x10^3/uL Absolute Nucleated RBC 0.00 (0.00-0.012) x10^3u/L Lymphocytes % 25.8 (21.8-53.1) % Monocytes % 18.0 H (5.3-12.2) % Eosinophils % 0.7 L (0.8-7.0) % Basophils % 0.7 (0.2-1.2) % Absolute Granulocytes 2.44 (1.78-5.38) x10^3/uL Basophils # 0.03 (0.01-0.08) x10^3/uL Sodium 140 (135-145) mmol/L Potassium 4.9 (3.5-5.1) mmol/L Chloride 101 (98-107) mmol/L Carbon Dioxide 23 (22-30) mmol/L Anion Gap 20.6 H (5-15) MEQ/L BUN 23 H (9-20) mg/dL Creatinine 0.92 (0.66-1.25) mg/dL Estimated GFR 84.1 ML/MIN Glucose 148 H (74-106) mg/dL POC Glucometer (74 to 106) mg/dL Lactic Acid (0.4-2.0) Calcium 12.4 H* (8.4-10.2) mg/dL Total Bilirubin 2.70 H (0.2-1.3) mg/dL AST 47 (17-59) U/L ALT 33 (0-50) U/L Alkaline Phosphatase < 20 L (38-126) U/L Serum Total Protein 7.2 (6.3-8.2) g/dL Albumin 4.7 (3.5-5.0) g/dL Lipase 42 (23-300) U/L Urine Color Dark Yellow (Yellow) Urine Appearance Clear (Clear) Urine pH 5.5 (4.6-8.0) Ur Specific [place] 1.020 (1.005-1.030) Urine Protein 30 (Negative) Urine Glucose (UA) Negative (Negative) mg/dL Urine Ketones Trace A (Negative) Urine Blood Negative (Negative) Urine Nitrite Negative (Negative) Urine Bilirubin Negative (Negative) Urine Urobilinogen 1.0 A (0.2) mg/dL Ur Leukocyte Esterase Negative (Negative) U Hyaline Cast (Auto) 3-5 A (0-2) /LPF Urine Microscopic RBC 0-2 (0-5) /HPF Urine Microscopic WBC 0-2 (0-5) /HPF Ur Epithelial Cells None Seen (None Seen) /HPF Urine Bacteria None Seen (None Seen) /HPF Urine Culture Reflexed NO (NO) 06/18/24 06/18/24 06/18/24 Range/Units 11:22 13:36 16:40 WBC (4.23-9.07) x10^3/uL RBC (4.63-6.08) x10^6/uL Hgb (13.7-17.5) g/dL Hct (40.1-51.0) % MCV (79.0-92.2) fL MCH (25.7-32.2) pg MCHC (32.3-36.5) g/dL RDW (11.6-14.4) % Plt Count (163-337) x10^3/uL MPV (9.4-12.4) fL Gran % (34.0-67.9) % Immature Gran % (Auto) (0.001-0.429) % Nucleat RBC Rel Count (0.00-0.2) % Eos # (Auto) (0.04-0.54) x10^3/uL Immature Gran # (Auto) (0.001-0.031) x10^3u/L Absolute Lymphs (auto) (1.32-3.57) x10^3/uL Absolute Monos (auto) (0.30-0.82) x10^3/uL Absolute Nucleated RBC (0.00-0.012) x10^3u/L Lymphocytes % (21.8-53.1) % Monocytes % (5.3-12.2) % Eosinophils % (0.8-7.0) % Basophils % (0.2-1.2) % Absolute Granulocytes (1.78-5.38) x10^3/uL Basophils # (0.01-0.08) x10^3/uL Sodium (135-145) mmol/L Potassium (3.5-5.1) mmol/L Chloride (98-107) mmol/L Carbon Dioxide (22-30) mmol/L Anion Gap (5-15) MEQ/L BUN (9-20) mg/dL Creatinine (0.66-1.25) mg/dL Estimated GFR ML/MIN Glucose (74-106) mg/dL POC Glucometer 136 H (74 to 106) mg/dL Lactic Acid 3.4 H 2.2 H (0.4-2.0) Calcium (8.4-10.2) mg/dL Total Bilirubin (0.2-1.3) mg/dL AST (17-59) U/L ALT (0-50) U/L Alkaline Phosphatase (38-126) U/L Serum Total Protein (6.3-8.2) g/dL Albumin (3.5-5.0) g/dL Lipase (23-300) U/L Urine Color (Yellow) Urine Appearance (Clear) Urine pH (4.6-8.0) Ur Specific [place] (1.005-1.030) Urine Protein (Negative) Urine Glucose (UA) (Negative) mg/dL Urine Ketones (Negative) Urine Blood (Negative) Urine Nitrite (Negative) Urine Bilirubin (Negative) Urine Urobilinogen (0.2) mg/dL Ur Leukocyte Esterase (Negative) U Hyaline Cast (Auto) (0-2) /LPF Urine Microscopic RBC (0-5) /HPF Urine Microscopic WBC (0-5) /HPF Ur Epithelial Cells (None Seen) /HPF Urine Bacteria (None Seen) /HPF Urine Culture Reflexed (NO) 06/18/24 06/18/24 06/18/24 Range/Units 17:00 17:19 20:19 WBC (4.23-9.07) x10^3/uL RBC (4.63-6.08) x10^6/uL Hgb (13.7-17.5) g/dL Hct (40.1-51.0) % MCV (79.0-92.2) fL MCH (25.7-32.2) pg MCHC (32.3-36.5) g/dL RDW (11.6-14.4) % Plt Count (163-337) x10^3/uL MPV (9.4-12.4) fL Gran % (34.0-67.9) % Immature Gran % (Auto) (0.001-0.429) % Nucleat RBC Rel Count (0.00-0.2) % Eos # (Auto) (0.04-0.54) x10^3/uL Immature Gran # (Auto) (0.001-0.031) x10^3u/L Absolute Lymphs (auto) (1.32-3.57) x10^3/uL Absolute Monos (auto) (0.30-0.82) x10^3/uL Absolute Nucleated RBC (0.00-0.012) x10^3u/L Lymphocytes % (21.8-53.1) % Monocytes % (5.3-12.2) % Eosinophils % (0.8-7.0) % Basophils % (0.2-1.2) % Absolute Granulocytes (1.78-5.38) x10^3/uL Basophils # (0.01-0.08) x10^3/uL Sodium 142 (135-145) mmol/L Potassium 3.7 D (3.5-5.1) mmol/L Chloride 100 (98-107) mmol/L Carbon Dioxide 28 (22-30) mmol/L Anion Gap 17.6 H (5-15) MEQ/L BUN 24 H (9-20) mg/dL Creatinine 1.07 (0.66-1.25) mg/dL Estimated GFR 70.2 ML/MIN Glucose 142 H (74-106) mg/dL POC Glucometer 128 H (74 to 106) mg/dL Lactic Acid 1.9 (0.4-2.0) Calcium 12.1 H* (8.4-10.2) mg/dL Total Bilirubin 2.80 H (0.2-1.3) mg/dL AST 39 (17-59) U/L ALT 29 (0-50) U/L Alkaline Phosphatase 38 (38-126) U/L Serum Total Protein 7.2 (6.3-8.2) g/dL Albumin 4.5 (3.5-5.0) g/dL Lipase (23-300) U/L Urine Color (Yellow) Urine Appearance (Clear) Urine pH (4.6-8.0) Ur Specific [place] (1.005-1.030) Urine Protein (Negative) Urine Glucose (UA) (Negative) mg/dL Urine Ketones (Negative) Urine Blood (Negative) Urine Nitrite (Negative) Urine Bilirubin (Negative) Urine Urobilinogen (0.2) mg/dL Ur Leukocyte Esterase (Negative) U Hyaline Cast (Auto) (0-2) /LPF Urine Microscopic RBC (0-5) /HPF Urine Microscopic WBC (0-5) /HPF Ur Epithelial Cells (None Seen) /HPF Urine Bacteria (None Seen) /HPF Urine Culture Reflexed (NO) 06/18/24 06/19/24 06/19/24 Range/Units 23:57 04:08 05:19 WBC 4.6 (4.23-9.07) x10^3/uL RBC 4.26 L (4.63-6.08) x10^6/uL Hgb 13.1 L (13.7-17.5) g/dL Hct 40.0 L (40.1-51.0) % MCV 93.9 H (79.0-92.2) fL MCH 30.8 (25.7-32.2) pg MCHC 32.8 (32.3-36.5) g/dL RDW 13.5 (11.6-14.4) % Plt Count 125 L (163-337) x10^3/uL MPV 11.6 (9.4-12.4) fL Gran % 59.1 (34.0-67.9) % Immature Gran % (Auto) 0.4 (0.001-0.429) % Nucleat RBC Rel Count 0.0 (0.00-0.2) % Eos # (Auto) 0.04 (0.04-0.54) x10^3/uL Immature Gran # (Auto) 0.02 (0.001-0.031) x10^3u/L Absolute Lymphs (auto) 1.04 L (1.32-3.57) x10^3/uL Absolute Monos (auto) 0.79 (0.30-0.82) x10^3/uL Absolute Nucleated RBC 0.00 (0.00-0.012) x10^3u/L Lymphocytes % 22.4 (21.8-53.1) % Monocytes % 17.0 H (5.3-12.2) % Eosinophils % 0.9 (0.8-7.0) % Basophils % 0.2 (0.2-1.2) % Absolute Granulocytes 2.74 (1.78-5.38) x10^3/uL Basophils # 0.01 (0.01-0.08) x10^3/uL Sodium (135-145) mmol/L Potassium (3.5-5.1) mmol/L Chloride (98-107) mmol/L Carbon Dioxide (22-30) mmol/L Anion Gap (5-15) MEQ/L BUN (9-20) mg/dL Creatinine (0.66-1.25) mg/dL Estimated GFR ML/MIN Glucose (74-106) mg/dL POC Glucometer 143 H 136 H (74 to 106) mg/dL Lactic Acid (0.4-2.0) Calcium (8.4-10.2) mg/dL Total Bilirubin (0.2-1.3) mg/dL AST (17-59) U/L ALT (0-50) U/L Alkaline Phosphatase (38-126) U/L Serum Total Protein (6.3-8.2) g/dL Albumin (3.5-5.0) g/dL Lipase (23-300) U/L Urine Color (Yellow) Urine Appearance (Clear) Urine pH (4.6-8.0) Ur Specific [place] (1.005-1.030) Urine Protein (Negative) Urine Glucose (UA) (Negative) mg/dL Urine Ketones (Negative) Urine Blood (Negative) Urine Nitrite (Negative) Urine Bilirubin (Negative) Urine Urobilinogen (0.2) mg/dL Ur Leukocyte Esterase (Negative) U Hyaline Cast (Auto) (0-2) /LPF Urine Microscopic RBC (0-5) /HPF Urine Microscopic WBC (0-5) /HPF Ur Epithelial Cells (None Seen) /HPF Urine Bacteria (None Seen) /HPF Urine Culture Reflexed (NO) 06/19/24 06/19/24 06/19/24 Range/Units 05:19 05:34 07:39 WBC (4.23-9.07) x10^3/uL RBC (4.63-6.08) x10^6/uL Hgb (13.7-17.5) g/dL Hct (40.1-51.0) % MCV (79.0-92.2) fL MCH (25.7-32.2) pg MCHC (32.3-36.5) g/dL RDW (11.6-14.4) % Plt Count (163-337) x10^3/uL MPV (9.4-12.4) fL Gran % (34.0-67.9) % Immature Gran % (Auto) (0.001-0.429) % Nucleat RBC Rel Count (0.00-0.2) % Eos # (Auto) (0.04-0.54) x10^3/uL Immature Gran # (Auto) (0.001-0.031) x10^3u/L Absolute Lymphs (auto) (1.32-3.57) x10^3/uL Absolute Monos (auto) (0.30-0.82) x10^3/uL Absolute Nucleated RBC (0.00-0.012) x10^3u/L Lymphocytes % (21.8-53.1) % Monocytes % (5.3-12.2) % Eosinophils % (0.8-7.0) % Basophils % (0.2-1.2) % Absolute Granulocytes (1.78-5.38) x10^3/uL Basophils # (0.01-0.08) x10^3/uL Sodium 144 (135-145) mmol/L Potassium 3.8 (3.5-5.1) mmol/L Chloride 105 (98-107) mmol/L Carbon Dioxide 28 (22-30) mmol/L Anion Gap 14.8 (5-15) MEQ/L BUN 24 H (9-20) mg/dL Creatinine 0.95 (0.66-1.25) mg/dL Estimated GFR 80.9 ML/MIN Glucose 145 H (74-106) mg/dL POC Glucometer 121 H (74 to 106) mg/dL Lactic Acid 1.2 (0.4-2.0) Calcium 11.3 H (8.4-10.2) mg/dL Total Bilirubin 2.00 H (0.2-1.3) mg/dL AST 32 (17-59) U/L ALT 25 (0-50) U/L Alkaline Phosphatase 32 L (38-126) U/L Serum Total Protein 6.6 (6.3-8.2) g/dL Albumin 4.1 (3.5-5.0) g/dL Lipase (23-300) U/L Urine Color (Yellow) Urine Appearance (Clear) Urine pH (4.6-8.0) Ur Specific [place] (1.005-1.030) Urine Protein (Negative) Urine Glucose (UA) (Negative) mg/dL Urine Ketones (Negative) Urine Blood (Negative) Urine Nitrite (Negative) Urine Bilirubin (Negative) Urine Urobilinogen (0.2) mg/dL Ur Leukocyte Esterase (Negative) U Hyaline Cast (Auto) (0-2) /LPF Urine Microscopic RBC (0-5) /HPF Urine Microscopic WBC (0-5) /HPF Ur Epithelial Cells (None Seen) /HPF Urine Bacteria (None Seen) /HPF Urine Culture Reflexed (NO) Radiology Exams: Radiology Procedures Category Date Time Status ABDOMEN AND PELVIS W/0 CONTRAS [CT] Stat Exams 06/18/24 10:41 Completed CHEST 1 VIEW (PORTABLE) Stat Exams 06/18/24 16:10 Completed SMALL BOWEL SERIES Routine Exams 06/19/24 07:00 Ordered Medications: Medications Generic Name Dose Route Start Last Admin Trade Name Freq PRN Reason Stop Dose Admin Cholecalciferol 2,000 unit 06/19/24 10:00 Cholecalciferol (Vitamin D3) 1000 Unit Tablet PO 07/19/24 09:59 DAILY REYNALDO Fenofibrate 72.5 mg 06/19/24 22:00 Fenofibrate,Micronized 145 Mg Tablet PO 07/19/24 21:59 HS REYNALDO Hydromorphone HCl 0.5 mg 06/18/24 16:37 06/19/24 05:29 Hydromorphone 1 Mg/1ml Inj IV 06/23/24 16:36 0.5 mg Q4H PRN PRN Administration PAIN Sodium Chloride 1,000 mls @ 100 mls/hr 06/18/24 15:45 06/19/24 03:36 Sodium Chloride 0.9% 1000 Ml IV 07/18/24 15:44 100 mls/hr .Q10H REYNALDO Administration Insulin Human Lispro 0 unit 06/18/24 15:31 Insulin Lispro 1 Unit SQ 07/18/24 15:30 UD PRN HYPERGLYCEMIA Losartan Potassium 50 mg 06/19/24 10:00 Losartan Potassium 50 Mg Tablet PO 07/19/24 09:59 DAILY REYNALDO Magnesium Oxide 400 mg 06/18/24 22:00 06/18/24 22:20 Magnesium Oxide 400 Mg Tablet PO 07/18/24 21:59 Not Given BID REYNALDO Miscellaneous Information 1 each 06/19/24 07:30 Medication Intervention 1 Each Each 07/19/24 07:29 .RN TO CHECK REYNALDO Naloxone HCl 0.4 mg 06/18/24 16:43 Naloxone Hcl 0.4 Mg/Ml Ml IV 07/18/24 16:42 PRN PRN OVERDOSE Ondansetron HCl 4 mg 06/18/24 15:31 Ondansetron Hcl 4 Mg/2 Ml Vial IV 07/18/24 15:30 Q6H PRN PRN NAUSEA/VOMITING Pantoprazole Sodium 40 mg 06/18/24 16:45 06/18/24 17:30 Pantoprazole 40 Mg Vial IV 07/18/24 16:44 40 mg Q24H10 REYNALDO Administration Phenol 0 ml 06/18/24 16:46 Phenol/Sodium Phenolate 180 Ml Bottle PO 07/18/24 16:45 PRN PRN MODERATE PAIN Potassium Chloride 20 meq 06/18/24 22:00 06/18/24 22:20 Potassium Chloride Tab 10 Meq Tab PO 07/18/24 21:59 Not Given BID REYNALDO Simvastatin 40 mg 06/18/24 22:00 06/18/24 22:20 Simvastatin 20 Mg Tablet PO 07/18/24 21:59 Not Given HS REYNALDO Discontinued Medications Generic Name Dose Route Start Last Admin Trade Name Freq PRN Reason Stop Dose Admin Atorvastatin Calcium 40 mg 06/18/24 22:00 Atorvastatin Calcium 40 Mg Tablet PO 07/18/24 21:59 HS REYNALDO Fentanyl Citrate 50 mcg 06/18/24 10:41 06/18/24 10:54 Fentanyl Citrate 100 Mcg/2 Ml* Vial IV 06/18/24 10:42 50 mcg STAT ONE Administration Fentanyl Citrate Confirm 06/18/24 10:51 Fentanyl Citrate 100 Mcg/2 Ml* Vial Administered 06/18/24 10:52 Dose 100 mcg .ROUTE .STK-MED ONE Sodium Chloride 500 mls @ 500 mls/hr 06/18/24 10:43 06/18/24 11:58 Sodium Chloride 0.9% 500 Ml IV 06/18/24 11:42 Infused .Q1H ONE Infusion Sodium Chloride Confirm 06/18/24 10:52 Sodium Chloride 0.9% 500 Ml Administered 06/18/24 10:53 Dose 500 mls @ ud IV .STK-MED ONE Sodium Chloride 500 mls @ 500 mls/hr 06/18/24 11:45 06/18/24 13:05 Sodium Chloride 0.9% 500 Ml IV 06/18/24 12:44 Infused .Q1H ONE Infusion Sodium Chloride Confirm 06/18/24 11:56 Sodium Chloride 0.9% 500 Ml Administered 06/18/24 11:57 Dose 500 mls @ ud IV .STK-MED ONE Non-Formulary Medication 20 meq 06/18/24 22:00 Potassium Chloride 20 Meq [Klor-Con 20 Meq] PO 07/18/24 21:59 BID REYNALDO Non-Formulary Medication 400 mg 06/18/24 22:00 Magnesium Oxide [Magnesium] PO 07/18/24 21:59 BID REYNALDO Non-Formulary Medication 48 mg 06/18/24 22:00 06/18/24 21:51 Fenofibrate Nanocrystallized [Tricor] PO 07/18/24 21:59 Not Given HS REYNALDO Ondansetron HCl 4 mg 06/18/24 10:41 06/18/24 10:54 Ondansetron Hcl 4 Mg/2 Ml Vial IV 06/18/24 10:42 4 mg STAT ONE Administration Ondansetron HCl Confirm 06/18/24 10:50 Ondansetron Hcl 4 Mg/2 Ml Vial Administered 06/18/24 10:51 Dose 4 mg .ROUTE .STK-MED ONE Simvastatin Confirm 06/18/24 21:51 Simvastatin 20 Mg Tablet Administered 06/18/24 21:52 Dose 40 mg .ROUTE .STK-MED ONE Assessment/Plan (1) Small bowel obstruction Current Visit: Yes Status: Acute Assessment & Plan: -CT abd/pelvis reviewed showing a small bowel obstruction with a transition point in the right lower quadrant and a maximal diameter of 4.4 cm -General surgery consulted Dr.Brandon Cooper has accepted patient - appreciate recs -Place NG for decompression -Keep NPO -Continue IVF -Monitor for signs of worsening obstruction or strangulation (fever, leukocytosis, increasing pain, lactic acidosis) 06/19/24: -Small bowel follow through scheduled for today per surgical team -continue NPO -continue IVF Code(s): K56.609 - UNSP INTESTNL OBST, UNSP TO PARTIAL VERSUS COMPLETE OBST (2) Hypercalcemia Current Visit: Yes Status: Acute Assessment & Plan: -Reassess calcium once rehydrated -Monitor for symptoms (AMS, constipation, arrhythmia, polyuria) -Consider PTH level outpatient if remains elevated -Avoid calcium-containing medications and thiazide 06/19/24: -Calcium level reviewed at 11.3- improving Code(s): E83.52 - HYPERCALCEMIA (3) Total bilirubin, elevated Current Visit: Yes Status: Acute Assessment & Plan: -Trend bilirubin as hydration improves -Monitor for signs of cholestasis or hemolysis 06/19/24: -Tbili reviewed and down-trending Code(s): R17 - UNSPECIFIED JAUNDICE (4) Type 2 diabetes mellitus Current Visit: Yes Status: Acute Assessment & Plan: -Monitor blood glucose q4h while NPO and hold oral agents -Use sliding scale insulin or basal insulin as needed -A1c (5) CAD (coronary artery disease) Current Visit: Yes Status: Acute Assessment & Plan: -continue home meds -Monitor telemetry Code(s): I25.10 - ATHSCL HEART DISEASE OF [place] CORONARY ARTERY W/O ANG PCTRS (6) Abdominal aortic aneurysm (AAA) 3.0 cm to 5.5 cm in diameter in male Current Visit: Yes Status: Acute Assessment & Plan: -No acute intervention needed during this admission -Follow up with vascular surgery as OP with surveillance imaging Code(s): I71.40 - ABDOMINAL AORTIC ANEURYSM, WITHOUT RUPTURE, UNSPECIFIED (7) Dehydration Current Visit: Yes Status: Acute Assessment & Plan: -Continue IVF -Monitor input/output and daily weights -Recheck lactate and renal/lytes after volume repletion 06/19: -Lactic acid WNL VTE: SCD - hold anticoag in case of surgical intervention PPI: protonix Dispo: 2-3 days Code status: Full code Code(s): K56.609 - UNSP INTESTNL OBST, UNSP TO PARTIAL VERSUS COMPLETE OBST (2) Hypercalcemia Current Visit: Yes Status: Acute Code(s): E83.52 - HYPERCALCEMIA (3) Total bilirubin, elevated Current Visit: Yes Status: Acute Code(s): R17 - UNSPECIFIED JAUNDICE (4) Type 2 diabetes mellitus Current Visit: Yes Status: Acute (5) CAD (coronary artery disease) Current Visit: Yes Status: Acute Code(s): I25.10 - ATHSCL HEART DISEASE OF [place] CORONARY ARTERY W/O ANG PCTRS (6) Abdominal aortic aneurysm (AAA) 3.0 cm to 5.5 cm in diameter in male Current Visit: Yes Status: Acute Code(s): I71.40 - ABDOMINAL AORTIC ANEURYSM, WITHOUT RUPTURE, UNSPECIFIED (7) Dehydration Current Visit: Yes Status: Acute Code(s): E86.0 - DEHYDRATION
[2024-06-19] MEDS ORDERED: NON-FORMULARY ITEM (Bisoprolol Fumarate [Bisoprolol Fumarate] 5 MG Tablet) PO SCH (10:00)
[2024-06-19] MEDS: VITAMIN D PO SCH (11:51)
[2024-06-19] MEDS: Cozaar 50 MG PO SCH (11:52)
[2024-06-19] MEDS: Zofran 4 MG/2 ML VIAL IV PRN (12:35)
[2024-06-19] MEDS: Tricor 145 MG PO SCH (21:35)
[2024-06-20 05:24] LABS: Absolute Neutrophil Ct (ANC) 1.99 x10^3/uL (1.78-5.38); BASOPHIL % 0.3 % (0.2-1.2); Basophil (Absolute #) 0.01 x10^3/uL (0.01-0.08); Eosinophil % 0.8 % (0.8-7.0); Eosinophil (Absolute #) 0.03 x10^3/uL (0.04-0.54); Hematocrit 41.6 % (40.1-51.0); IMMATURE GRAN # 0.02 x10^3u/L (0.001-0.031); IMMATURE GRAN % 0.5 % (0.001-0.429); Lymphocyte (Absolute #) 0.76 x10^3/uL (1.32-3.57); Lymphocytes % 20.7 % (21.8-53.1); Mean Cell Volume 98.8 fL (79.0-92.2); Mean Corpuscular Hemoglobin 30.9 pg (25.7-32.2); Mean Corpuscular Hgb Concent. 31.3 g/dL (32.3-36.5); Mean Platelet Volume 11.6 fL (9.4-12.4); Monocyte (Absolute #) 0.87 x10^3/uL (0.30-0.82); Monocytes % 23.6 % (5.3-12.2); Neutrophil % 54.1 % (34.0-67.9); Platelet Count 123 x10^3/uL (163-337); Red Blood Count 4.21 x10^6/uL (4.63-6.08); Red Cell Distribution Width 13.6 % (11.6-14.4); White Blood Count 3.7 x10^3/uL (4.23-9.07)
--- NOTE | 2024-06-20 05:41 | PCM.NOTE ---
Date and Time: 06/20/24 0502 Subjective Assessment: is a 78 year old male with pmhx of CAD(s/p stent x1), DM, and glaucoma presented to ED 06/18/24 with complaints of 4-5 days of abdominal pain, distention, and two episodes of vomiting that occurred today. Patient states he did have a bowel movement today. On examination in ED, he was noted to have significant abdominal distention with mild to moderate tenderness in the periumbilical region and right [id number] abdomen. Bowel sounds were hypoactive. Denies fever,cough, sob, cp, MCLEOD, dizziness,or diarrhea. Upon arrival vitals were stable. Lab findings remarkable for a normal WBC count, normal serum chemistries, and a lactate of 3.4, likely related to dehydration. Anion gap was elevated at 20. Calcium was elevated at 12.4 mg/dL, and total bilirubin was mildly elevated at 2.7 mg/dL. A non-contrast CT scan of the abdomen and pelvis revealed a small bowel obstruction with a clear transition point in the right lower quadrant, and a maximal bowel diameter of 4.4 cm. An incidental 4.2 cm infrarenal fusiform abdominal aortic aneurysm was also noted. Patient noted with strong femoral pulses bilaterally and no clinical evidence of aneurysmal rupture. This finding is stable and appropriate for outpatient vascular monitoring. The case was discussed with Dr. Sudhir Cooper in ED, who reviewed the clinical presentation and imaging. Plan to place an NG tube and admit the patient to the hospitalist service for supportive care, in consultation with general surgery for further evaluation and operative planning as needed. 06/19/24: Met with patient and family at bedside. Patient is admitted with a CT-confirmed small bowel obstruction. An NG tube was placed in the ED and is currently clam ped per surgical team's request to facilitate a small bowel follow-through study. Patient denies nausea or vomiting at this time. He reports a history of chronic back pain, which is currently his primary source of discomfort. Will continue to monitor for signs of clinical deterioration, tolerance of conservative management, and radiographic progression. 06/20/24: Met with patient bedside. Family present. A small bowel follow-through showed diffusely dilated small bowel loops up to 4 cm without any strictures or ulceration. There was delayed transit, but contrast reached the colon and rectum by 24 hours, which is reassuring and suggests a resolving, non-mechanical obstruction. Clinically, the patient is improvinghes had two large bowel movements, is passing gas, and his abdomen is less distended with normal bowel sounds in all four quadrants. Labs this morning showed hypernatremia, likely related to dehydration and poor oral intake, so IV fluids were adjusted to D5 normal saline. He also has pancytopenia, which will need further evaluation. Calcium remains mildly elevated at 11.4; weve ordered PTH and vitamin D levels to explore possible causes. Surgery continues to follow and will reassess as needed. - Review of Systems Constitutional: No Symptoms Eyes: No Symptoms Ears, Nose, & Throat: No Symptoms Respiratory: No Symptoms Abdominal/Gastrointestinal: Abdominal Pain Genitourinary Symptoms: No Symptoms Musculoskeletal: Back Pain Skin: No Symptoms Neurological: No Symptoms, Parasthesia Endocrine: No Symptoms Hematologic/Lymphatic: No Symptoms Immunological/Allergic: No Symptoms Objective Exam General Appearance: no apparent distress Neurologic Exam: alert, oriented x 3, cooperative Skin Exam: normal color Eye Exam: PERRL Ears, Nose, Throat Exam: normal ENT inspection Neck Exam: normal inspection Respiratory Exam: normal breath sounds, lungs clear Cardiovascular Exam: regular rate/rhythm, normal heart sounds Gastrointestinal/Abdomen Exam: normal bowel sounds, distention Extremity Exam: swelling (BLE 1+) Back Exam: normal inspection Male Genitalia Exam: deferred Rectal Exam: deferred Objective Data Vital Signs: Vital Signs - 24 hr Temp Pulse Resp BP Pulse Ox 06/20/24 04:00 97.3 F 77 18 132/64 94 L 06/19/24 23:35 97.6 F 99 H 18 115/60 93 L 06/19/24 19:57 96 06/19/24 19:43 97.3 F 107 H 19 140/68 95 06/19/24 16:00 97.4 F 107 H 22 126/60 92 L 06/19/24 11:34 97.6 F 100 H 20 123/67 91 L 06/19/24 09:05 93 L 06/19/24 07:42 98 F 84 20 158/72 95 Pain Assessment - Last Documented Pain Intensity 5 Pain Scale Used 0-10 Pain Scale Intake and Output: Intake & Output 06/17/24 06/18/24 06/19/24 06/20/24 11:59 11:59 11:59 11:59 Intake Total 1054 2360 Output Total 2600 4350 Balance -1545 Weight 100.8 kg 97.7 kg Lab Results: Lab Results-Last 24 Hours 06/19/24 06/19/24 06/19/24 Range/Units 05:19 05:34 07:39 Sodium 144 (135-145) mmol/L Potassium 3.8 (3.5-5.1) mmol/L Chloride 105 (98-107) mmol/L Carbon Dioxide 28 (22-30) mmol/L Anion Gap 14.8 (5-15) MEQ/L BUN 24 H (9-20) mg/dL Creatinine 0.95 (0.66-1.25) mg/dL Estimated GFR 80.9 ML/MIN Glucose 145 H (74-106) mg/dL POC Glucometer 121 H (74 to 106) mg/dL Lactic Acid 1.2 (0.4-2.0) Calcium 11.3 H (8.4-10.2) mg/dL Total Bilirubin 2.00 H (0.2-1.3) mg/dL AST 32 (17-59) U/L ALT 25 (0-50) U/L Alkaline Phosphatase 32 L (38-126) U/L Serum Total Protein 6.6 (6.3-8.2) g/dL Albumin 4.1 (3.5-5.0) g/dL 06/19/24 06/19/24 06/19/24 Range/Units 11:29 17:04 20:06 Sodium (135-145) mmol/L Potassium (3.5-5.1) mmol/L Chloride (98-107) mmol/L Carbon Dioxide (22-30) mmol/L Anion Gap (5-15) MEQ/L BUN (9-20) mg/dL Creatinine (0.66-1.25) mg/dL Estimated GFR ML/MIN Glucose (74-106) mg/dL POC Glucometer 137 H 151 H 141 H (74 to 106) mg/dL Lactic Acid (0.4-2.0) Calcium (8.4-10.2) mg/dL Total Bilirubin (0.2-1.3) mg/dL AST (17-59) U/L ALT (0-50) U/L Alkaline Phosphatase (38-126) U/L Serum Total Protein (6.3-8.2) g/dL Albumin (3.5-5.0) g/dL 06/19/24 06/20/24 Range/Units 23:43 04:20 Sodium (135-145) mmol/L Potassium (3.5-5.1) mmol/L Chloride (98-107) mmol/L Carbon Dioxide (22-30) mmol/L Anion Gap (5-15) MEQ/L BUN (9-20) mg/dL Creatinine (0.66-1.25) mg/dL Estimated GFR ML/MIN Glucose (74-106) mg/dL POC Glucometer 137 H 130 H (74 to 106) mg/dL Lactic Acid (0.4-2.0) Calcium (8.4-10.2) mg/dL Total Bilirubin (0.2-1.3) mg/dL AST (17-59) U/L ALT (0-50) U/L Alkaline Phosphatase (38-126) U/L Serum Total Protein (6.3-8.2) g/dL Albumin (3.5-5.0) g/dL Radiology Exams: Radiology Procedures Category Date Time Status ABDOMEN AND PELVIS W/0 CONTRAS [CT] Stat Exams 06/18/24 10:41 Completed CHEST 1 VIEW (PORTABLE) Stat Exams 06/18/24 16:10 Completed SMALL BOWEL SERIES Routine Exams 06/19/24 07:00 Ordered Medications: Medications Generic Name Dose Route Start Last Admin Trade Name Freq PRN Reason Stop Dose Admin Cholecalciferol 2,000 unit 06/19/24 10:00 06/19/24 11:51 Cholecalciferol (Vitamin D3) 1000 Unit Tablet PO 07/19/24 09:59 Not Given DAILY REYNALDO Fenofibrate 72.5 mg 06/19/24 22:00 06/19/24 21:35 Fenofibrate,Micronized 145 Mg Tablet PO 07/19/24 21:59 Not Given HS REYNALDO Hydromorphone HCl 0.5 mg 06/18/24 16:37 06/19/24 23:32 Hydromorphone 1 Mg/1ml Inj IV 06/23/24 16:36 0.5 mg Q4H PRN PRN Administration PAIN Sodium Chloride 1,000 mls @ 100 mls/hr 06/18/24 15:45 06/19/24 23:36 Sodium Chloride 0.9% 1000 Ml IV 07/18/24 15:44 100 mls/hr .Q10H REYNALDO Administration Insulin Human Lispro 0 unit 06/18/24 15:31 Insulin Lispro 1 Unit SQ 07/18/24 15:30 UD PRN HYPERGLYCEMIA Losartan Potassium 50 mg 06/19/24 10:00 06/19/24 11:52 Losartan Potassium 50 Mg Tablet PO 07/19/24 09:59 Not Given DAILY REYNALDO Magnesium Oxide 400 mg 06/18/24 22:00 06/19/24 21:35 Magnesium Oxide 400 Mg Tablet PO 07/18/24 21:59 Not Given BID REYNALDO Miscellaneous Information 1 each 06/19/24 07:30 Medication Intervention 1 Each Each 07/19/24 07:29 .RN TO CHECK REYNALDO Naloxone HCl 0.4 mg 06/18/24 16:43 Naloxone Hcl 0.4 Mg/Ml Ml IV 07/18/24 16:42 PRN PRN OVERDOSE Ondansetron HCl 4 mg 06/18/24 15:31 06/19/24 20:55 Ondansetron Hcl 4 Mg/2 Ml Vial IV 07/18/24 15:30 4 mg Q6H PRN PRN Administration NAUSEA/VOMITING Pantoprazole Sodium 40 mg 06/18/24 16:45 06/19/24 11:09 Pantoprazole 40 Mg Vial IV 07/18/24 16:44 40 mg Q24H10 REYNALDO Administration Phenol 0 ml 06/18/24 16:46 Phenol/Sodium Phenolate 180 Ml Bottle PO 07/18/24 16:45 PRN PRN MODERATE PAIN Potassium Chloride 20 meq 06/18/24 22:00 06/19/24 21:35 Potassium Chloride Tab 10 Meq Tab PO 07/18/24 21:59 Not Given BID REYNALDO Simvastatin 40 mg 06/18/24 22:00 06/19/24 21:35 Simvastatin 20 Mg Tablet PO 07/18/24 21:59 Not Given HS [facility] Discontinued Medications Generic Name Dose Route Start Last Admin Trade Name Freq PRN Reason Stop Dose Admin Atorvastatin Calcium 40 mg 06/18/24 22:00 Atorvastatin Calcium 40 Mg Tablet PO 07/18/24 21:59 HS REYNALDO Fentanyl Citrate 50 mcg 06/18/24 10:41 06/18/24 10:54 Fentanyl Citrate 100 Mcg/2 Ml* Vial IV 06/18/24 10:42 50 mcg STAT ONE Administration Fentanyl Citrate Confirm 06/18/24 10:51 Fentanyl Citrate 100 Mcg/2 Ml* Vial Administered 06/18/24 10:52 Dose 100 mcg .ROUTE .STK-MED ONE Sodium Chloride 500 mls @ 500 mls/hr 06/18/24 10:43 06/18/24 11:58 Sodium Chloride 0.9% 500 Ml IV 06/18/24 11:42 Infused .Q1H ONE Infusion Sodium Chloride Confirm 06/18/24 10:52 Sodium Chloride 0.9% 500 Ml Administered 06/18/24 10:53 Dose 500 mls @ ud IV .STK-MED ONE Sodium Chloride 500 mls @ 500 mls/hr 06/18/24 11:45 06/18/24 13:05 Sodium Chloride 0.9% 500 Ml IV 06/18/24 12:44 Infused .Q1H ONE Infusion Sodium Chloride Confirm 06/18/24 11:56 Sodium Chloride 0.9% 500 Ml Administered 06/18/24 11:57 Dose 500 mls @ ud IV .STK-MED ONE Non-Formulary Medication 20 meq 06/18/24 22:00 Potassium Chloride 20 Meq [Klor-Con 20 Meq] PO 07/18/24 21:59 BID REYNADLO Non-Formulary Medication 400 mg 06/18/24 22:00 Magnesium Oxide [Magnesium] PO 07/18/24 21:59 BID REYNALDO Non-Formulary Medication 48 mg 06/18/24 22:00 06/18/24 21:51 Fenofibrate Nanocrystallized [Tricor] PO 07/18/24 21:59 Not Given HS REYNALDO Ondansetron HCl 4 mg 06/18/24 10:41 06/18/24 10:54 Ondansetron Hcl 4 Mg/2 Ml Vial IV 06/18/24 10:42 4 mg STAT ONE Administration Ondansetron HCl Confirm 06/18/24 10:50 Ondansetron Hcl 4 Mg/2 Ml Vial Administered 06/18/24 10:51 Dose 4 mg .ROUTE .STK-MED ONE Simvastatin Confirm 06/18/24 21:51 Simvastatin 20 Mg Tablet Administered 06/18/24 21:52 Dose 40 mg .ROUTE .STK-MED ONE Assessment/Plan (1) Small bowel obstruction Current Visit: Yes Status: Acute Assessment & Plan: -CT abd/pelvis reviewed showing a small bowel obstruction with a transition point in the right lower quadrant and a maximal diameter of 4.4 cm -General surgery consulted Dr.Brandon Cooper has accepted patient - appreciate recs -Place NG for decompression -Keep NPO -Continue IVF -Monitor for signs of worsening obstruction or strangulation (fever, leukocytosis, increasing pain, lactic acidosis) 06/19/24: -Small bowel follow through scheduled for today per surgical team -continue NPO -continue IVF 06/20/24: -Small bowel follow-through reviewed and showed diffusely dilated small bowel loops up to 4 cm without any strictures or ulceration. There was delayed transit, but contrast reached the colon and rectum by 24 hours, which is re assuring and suggests a resolving, non-mechanical obstruction -BM x2 this morning - large -BS x 4 quads -+flatulence -Surgery following -IVF with d5 1/2 NS due to hyperkalemia Code(s): K56.609 - UNSP INTESTNL OBST, UNSP TO PARTIAL VERSUS COMPLETE OBST (2) Hypercalcemia Current Visit: Yes Status: Acute Assessment & Plan: -Reassess calcium once rehydrated -Monitor for symptoms (AMS, constipation, arrhythmia, polyuria) -Consider PTH level outpatient if remains elevated -Avoid calcium-containing medications and thiazide 06/19/24: -Calcium level reviewed at 11.3- improving 06/20: Calcium level at 11.4- will add PTH and vitamin D level Code(s): E83.52 - HYPERCALCEMIA (3) Total bilirubin, elevated Current Visit: Yes Status: Acute Assessment & Plan: -Trend bilirubin as hydration improves -Monitor for signs of cholestasis or hemolysis 06/19/24: -Tbili reviewed and down-trending 06/20/24: -Resolved- tBili reviewed and WNL Code(s): R17 - UNSPECIFIED JAUNDICE (4) Type 2 diabetes mellitus Current Visit: Yes Status: Acute Assessment & Plan: -Monitor blood glucose q4h while NPO and hold oral agents -Use sliding scale insulin or basal insulin as needed -A1c (5) CAD (coronary artery disease) Current Visit: Yes Status: Acute Assessment & Plan: -continue home meds -Monitor telemetry Code(s): I25.10 - ATHSCL HEART DISEASE OF ELEM CORONARY ARTERY W/O ANG PCTRS (6) Abdominal aortic aneurysm (AAA) 3.0 cm to 5.5 cm in diameter in male Current Visit: Yes Status: Acute Assessment & Plan: -No acute intervention needed during this admission -Follow up with vascular surgery as OP with surveillance imaging Code(s): I71.40 - ABDOMINAL AORTIC ANEURYSM, WITHOUT RUPTURE, UNSPECIFIED (7) Dehydration Current Visit: Yes Status: Acute Assessment & Plan: -Continue IVF -Monitor input/output and daily weights -Recheck lactate and renal/lytes after volume repletion 06/19: -Lactic acid WNL Hyperkalemia -likely related to dehydration and poor oral intake -IV fluids were adjusted to D5 normal saline -Monitor closely Pancytopenia -CBC reviewed - -Will check Retic, B12, iron studies -May need workup OP if persisting -thrombocytopenia appears chronic VTE: SCD - hold anticoag in case of surgical intervention PPI: protonix Dispo: 2-3 days Code status: Full code Code(s): K56.609 - UNSP INTESTNL OBST, UNSP TO PARTIAL VERSUS COMPLETE OBST (2) Hypercalcemia Current Visit: Yes Status: Acute Code(s): E83.52 - HYPERCALCEMIA (3) Total bilirubin, elevated Current Visit: Yes Status: Acute Code(s): R17 - UNSPECIFIED JAUNDICE (4) Type 2 diabetes mellitus Current Visit: Yes Status: Acute (5) CAD (coronary artery disease) Current Visit: Yes Status: Acute Code(s): I25.10 - ATHSCL HEART DISEASE OF ELEM CORONARY ARTERY W/O ANG PCTRS (6) Abdominal aortic aneurysm (AAA) 3.0 cm to 5.5 cm in diameter in male Current Visit: Yes Status: Acute Code(s): I71.40 - ABDOMINAL AORTIC ANEURYSM, WITHOUT RUPTURE, UNSPECIFIED (7) Dehydration Current Visit: Yes Status: Acute Code(s): E86.0 - DEHYDRATION
[2024-06-20 05:58] LABS: ALBUMIN 3.9 g/dL (3.5-5.0); ANION GAP 14.7 MEQ/L (5-15); BILIRUBIN,TOTAL 0.8 mg/dL (0.2-1.3); Calcium 11.4 mg/dL (8.4-10.2); Creatinine 1 1.18 mg/dL (0.66-1.25); EST GLOMERULAR FILTRATION RATE 62.4 ML/MIN; Potassium 4.3 mmol/L (3.5-5.1); Total Protein 6.5 g/dL (6.3-8.2)
[2024-06-20] MEDS: Dextrose 5% -0.45 NaCl 1000 ML 1,000 ML IV SCH (07:18)
--- NOTE | 2024-06-20 08:51 | XRAY ---
CLINICAL HISTORY: SBO COMPARISON: None. TECHNIQUE: X-ray images of the abdomen in AP supine were obtained after a contrast swallow. FINDINGS: Diffuse prominent small bowel was noted with a diameter up to 4cm, no small bowel stricturing or ulceration Delay in the transit time of the small bowel After 24 hours, the contrast media are in the colon and the rectum. IMPRESSION: 1. Delay in the transit time of the small bowel, suggesting a dynamic ileus 2. After 24 hours, the contrast media are in the colon and the rectum. Electronically Signed by: Blane Rivera MD. (06/20/2024 08:48:25 EDT)
[2024-06-20 10:54] LABS: RETICULOCYTE % 1.7 % (0.51-1.81); RETICULOCYTE HEMOGLOBIN 28.6 pg (28-36.6)
[2024-06-20 12:59] LABS: Iron 29 ug/dL (49-181); Iron Saturation 11 % (20-39); TIBC 273 ug/dL (261-497)
[2024-06-20] MEDS: PATIENT OWN MEDICATION PO SCH (13:41)
[2024-06-20 13:57] LABS: Folate (Folic Acid) 12.3 ng/mL (2.76 - >20)
[2024-06-20 15:42] LABS: ALBUMIN 3.9 g/dL (3.5-5.0); ANION GAP 15.5 MEQ/L (5-15); BILIRUBIN,TOTAL 0.7 mg/dL (0.2-1.3); Calcium 11.2 mg/dL (8.4-10.2); Creatinine 1 1.12 mg/dL (0.66-1.25); EST GLOMERULAR FILTRATION RATE 66.4 ML/MIN; Potassium 3.7 mmol/L (3.5-5.1); Total Protein 6.5 g/dL (6.3-8.2)
[2024-06-20] MEDS ORDERED: Tums EX 750 MG ONE (21:20)
[2024-06-20] MEDS ORDERED: Mylicon 80MG ONE (21:20)
[2024-06-20] MEDS: Mylicon 80MG PO PRN (21:33)
[2024-06-20] MEDS: Tums EX 750 MG PO PRN (21:33)
[2024-06-21 05:24] LABS: Absolute Neutrophil Ct (ANC) 2.67 x10^3/uL (1.78-5.38); BASOPHIL % 0.4 % (0.2-1.2); Basophil (Absolute #) 0.02 x10^3/uL (0.01-0.08); Eosinophil % 2.4 % (0.8-7.0); Eosinophil (Absolute #) 0.11 x10^3/uL (0.04-0.54); Hemoglobin 12.1 g/dL (13.7-17.5); IMMATURE GRAN # 0.04 x10^3u/L (0.001-0.031); IMMATURE GRAN % 0.9 % (0.001-0.429); Lymphocyte (Absolute #) 0.75 x10^3/uL (1.32-3.57); Lymphocytes % 16.1 % (21.8-53.1); Mean Cell Volume 96.2 fL (79.0-92.2); Mean Corpuscular Hemoglobin 30.6 pg (25.7-32.2); Mean Corpuscular Hgb Concent. 31.8 g/dL (32.3-36.5); Monocyte (Absolute #) 1.07 x10^3/uL (0.30-0.82); Neutrophil % 57.2 % (34.0-67.9); Platelet Count 119 x10^3/uL (163-337); Red Blood Count 3.95 x10^6/uL (4.63-6.08); Red Cell Distribution Width 13.3 % (11.6-14.4); White Blood Count 4.7 x10^3/uL (4.23-9.07)
[2024-06-21 05:47] LABS: ALBUMIN 3.6 g/dL (3.5-5.0); Calcium 11.1 mg/dL (8.4-10.2); Creatinine 1 1.02 mg/dL (0.66-1.25); EST GLOMERULAR FILTRATION RATE 74.3 ML/MIN; Total Protein 6.1 g/dL (6.3-8.2)
[2024-06-21] MEDS ORDERED: Tums EX 750 MG PO PRN (06:58)
[2024-06-21] MEDS ORDERED: Mylicon 80MG PO PRN (06:58)
--- NOTE | 2024-06-21 08:13 | CONS ---
NG tube was placed and currently clamped. ASSESSMENT AND PLAN: 1) Small bowel obstruction. 2) Continue medical management with n.p.o., NG tube, IV fluids. 3) Small-bowel followthrough in progress. 4) I personally reviewed the small-bowel followthrough images at bedside as they taking the set of about 5 hour images and there was contrast throughout much of the small bowel but I do not see any contrast yet in the colon. 5) I reviewed CBC, which shows a white blood cell count that is normal at 5. 6) Patient's family also discussed that they do want transfer to [facility] if he does need surgical intervention. We will wait for the results of the small-bowel follow through tomorrow on whether he needs transfer for surgery or not.
--- NOTE | 2024-06-21 08:17 | CONS ---
CONSULT DATE: 06/18/2024 CHIEF COMPLAINT: Abdominal pain. REQUESTING PROVIDER: Emergency department physician. REASON FOR CONSULTATION: Small-bowel obstruction. HISTORY OF PRESENT ILLNESS: This patient presents with 4 or 5 days of abdominal pain, distention, vomiting, which has become progressively worse. He does also report some shortness of breath. He denies any chest pain. He denies any fevers or chills. He said the pain yesterday was about 9/10, today it is quite a bit better. Since being in the hospital it is about 5/10. He does say he was passing gas up through yesterday and not really having any today. He did say he had a small bowel movement in the morning today. PAST MEDICAL HISTORY: CAD with stents, hypertension, hyperlipidemia, diabetes. PAST SURGICAL HISTORY: Open appendectomy 60 years ago. MEDICATIONS: Reviewed. See MAR including aspirin. FAMILY HISTORY: Noncontributory. SOCIAL HISTORY: Former smoker. PHYSICAL EXAMINATION: GENERAL: No acute distress. HEENT: Sclerae anicteric. Extraocular motions are intact. NECK: Supple. No JVD. CHEST: Nonlabored breathing ABDOMEN: Soft, distended. Minimally tender with no guarding or rebound. NEUROLOGIC: Awake, alert, and oriented. PSYCHIATRIC: Appropriate mood and affect. EXTREMITIES: No peripheral edema. LABORATORY STUDIES: I reviewed his CBC, CMP, lactic acid, which was significant for a mildly elevated lactic acid at 3.4, as well as an elevated total bilirubin at 2.7. CT scan: I personally reviewed the CT scan images, which show a small bowel obstruction with an abrupt transition point consistent with a small bowel obstruction. There is also an abdominal aortic aneurysm measuring 4.2 cm. ASSESSMENT AND PLAN: 1) Small bowel obstruction. 2) Coronary artery disease with stents. 3) Abdominal aortic aneurysm, asymptomatic. I discussed the pathology of a small bowel obstruction with the patient and is likely due to adhesions but could due from tumor or other sources. We discussed the options for surgical exploration versus conservative nonoperative management and he does not really appear to have concerning findings for bowel ischemia at this time and I think a trial of nonoperative management will be reasonable. He has increased risk of surgery with a CAD and AAA. We will trial nonoperative management with continued NG tube, which has about 700 out already and is already in place. N.p.o., IV fluids and we will check a small-bowel followthrough tomorrow.
[2024-06-21] MEDS: Vitamin B-12 500 MCG PO SCH (11:12)
--- NOTE | 2024-06-21 11:18 | PCM.NOTE ---
Date and Time: 06/21/24 1111 Subjective Assessment: The patient is an 78-year-old male with a history of CAD (s/p stent), diabetes, and glaucoma, currently on hospital day 4 following admission for small bowel obstruction (SBO) identified on CT with a transition point in the right lower quadrant. He presented with abdominal pain, distention, and vomiting but has shown steady clinical improvement. A small bowel follow-through revealed delayed transit with eventual passage of contrast to the colon, suggesting a resolving, non-mechanical obstruction. He has had multiple bowel movements, is passing gas, and has decreased abdominal distention with normalized bowel sounds. The NG tube was removed yesterday, and a clear liquid diet has been initiated. Labs show persistent mild hypercalcemia (now 11.4), prompting further evaluation with PTH and vitamin D levels. Pancytopenia is under investigation, and low vitamin B12 was identified and is being replaced orally. Tums have been discontinued due to the elevated calcium. The patient developed a need for supplemental oxygen (4L NC, SpO? 93%) on 06/18 despite a normal chest X-ray and no known pulmonary di sease; a CTA has been ordered for further evaluation. Pain is well-controlled without IV opioids. The patient reports no new concerns and continues to be monitored closely. - Review of Systems Constitutional: No Fever, No Chills Eyes: No Symptoms Ears, Nose, & Throat: No Symptoms Respiratory: Short Of Breath, No Cough Cardiac: No Chest Pain, No Edema, No Syncope Abdominal/Gastrointestinal: No Abdominal Pain, No Nausea, No Vomiting, No Diarrhea Genitourinary Symptoms: No Dysuria Musculoskeletal: No Back Pain, No Neck Pain Skin: No Rash Neurological: No Dizziness, No Focal Weakness, No Sensory Changes Psychological: No Symptoms Endocrine: No Symptoms Hematologic/Lymphatic: No Symptoms Immunological/Allergic: No Symptoms Objective Exam General Appearance: no apparent distress, alert, obese Neurologic Exam: alert, oriented x 3, cooperative, normal mood/affect, nml cerebellar function, sensation nml, No motor deficits Skin Exam: normal color, warm, dry Eye Exam: PERRL, EOMI, eyes nml inspection Ears, Nose, Throat Exam: normal ENT inspection, pharynx normal, moist mucous membranes Neck Exam: normal inspection, non-tender, supple, full range of motion Respiratory Exam: normal breath sounds, lungs clear, No respiratory distress Cardiovascular Exam: regular rate/rhythm, normal heart sounds Gastrointestinal/Abdomen Exam: soft, No tenderness, No mass Extremity Exam: normal inspection, normal range of motion Back Exam: normal inspection, normal range of motion, No CVA tenderness, No vertebral tenderness Male Genitalia Exam: deferred Rectal Exam: deferred Objective Data Vital Signs: Vital Signs - 24 hr Temp Pulse Resp BP Pulse Ox 06/21/24 09:47 93 L 06/21/24 08:00 97.9 F 70 20 106/63 92 L 06/21/24 03:45 97.5 F 85 22 107/58 93 L 06/20/24 23:23 98.0 F 88 20 110/57 92 L 06/20/24 21:36 95 06/20/24 19:45 97.3 F 75 20 108/58 96 06/20/24 16:00 97.3 F 73 18 108/61 90 L 06/20/24 12:00 97.1 F 87 20 114/59 90 L Pain Assessment - Last Documented Pain Intensity 4 Pain Scale Used 0-10 Pain Scale Intake and Output: Intake & Output 06/18/24 06/19/24 06/20/24 06/21/24 11:59 11:59 11:59 11:59 Intake Total 1054 2360 3242 Output Total 2600 5050 600 Balance -1546 -5880 2642 Weight 100.8 kg 97.7 kg 90.6 kg Lab Results: Lab Results-Last 24 Hours 06/20/24 06/20/24 06/20/24 Range/Units 08:50 08:50 08:50 WBC (4.23-9.07) x10^3/uL RBC (4.63-6.08) x10^6/uL Hgb (13.7-17.5) g/dL Hct (40.1-51.0) % MCV (79.0-92.2) fL MCH (25.7-32.2) pg MCHC (32.3-36.5) g/dL RDW (11.6-14.4) % Plt Count (163-337) x10^3/uL MPV (9.4-12.4) fL Gran % (34.0-67.9) % Immature Gran % (Auto) (0.001-0.429) % Reticulocyte % (Auto) 1.7 (0.51-1.81) % Nucleat RBC Rel Count (0.00-0.2) % Eos # (Auto) (0.04-0.54) x10^3/uL Immature Gran # (Auto) (0.001-0.031) x10^3u/L Absolute Lymphs (auto) (1.32-3.57) x10^3/uL Absolute Monos (auto) (0.30-0.82) x10^3/uL Absolute Nucleated RBC (0.00-0.012) x10^3u/L Lymphocytes % (21.8-53.1) % Monocytes % (5.3-12.2) % Eosinophils % (0.8-7.0) % Basophils % (0.2-1.2) % Absolute Granulocytes (1.78-5.38) x10^3/uL Basophils # (0.01-0.08) x10^3/uL Absolute Retic 0.0737 (0.026-0.095) x10^6/uL Retic Hgb Content 28.6 (28-36.6) pg Sodium (135-145) mmol/L Potassium (3.5-5.1) mmol/L Chloride (98-107) mmol/L Carbon Dioxide (22-30) mmol/L Anion Gap (5-15) MEQ/L BUN (9-20) mg/dL Creatinine (0.66-1.25) mg/dL Estimated GFR ML/MIN Glucose (74-106) mg/dL POC Glucometer (74 to 106) mg/dL Calcium (8.4-10.2) mg/dL Iron 29 L (49-181) ug/dL TIBC 273 (261-497) ug/dL Iron Saturation 11 L (20-39) % Ferritin 307 (17.9-464) ng/mL Total Bilirubin (0.2-1.3) mg/dL AST (17-59) U/L ALT (0-50) U/L Alkaline Phosphatase (38-126) U/L Serum Total Protein (6.3-8.2) g/dL Albumin (3.5-5.0) g/dL Vitamin B12 214 L (239-931) pg/mL Folic Acid 12.3 (2.76 - >20) ng/mL 06/20/24 06/20/24 06/20/24 Range/Units 11:42 15:28 16:16 WBC (4.23-9.07) x10^3/uL RBC (4.63-6.08) x10^6/uL Hgb (13.7-17.5) g/dL Hct (40.1-51.0) % MCV (79.0-92.2) fL MCH (25.7-32.2) pg MCHC (32.3-36.5) g/dL RDW (11.6-14.4) % Plt Count (163-337) x10^3/uL MPV (9.4-12.4) fL Gran % (34.0-67.9) % Immature Gran % (Auto) (0.001-0.429) % Reticulocyte % (Auto) (0.51-1.81) % Nucleat RBC Rel Count (0.00-0.2) % Eos # (Auto) (0.04-0.54) x10^3/uL Immature Gran # (Auto) (0.001-0.031) x10^3u/L Absolute Lymphs (auto) (1.32-3.57) x10^3/uL Absolute Monos (auto) (0.30-0.82) x10^3/uL Absolute Nucleated RBC (0.00-0.012) x10^3u/L Lymphocytes % (21.8-53.1) % Monocytes % (5.3-12.2) % Eosinophils % (0.8-7.0) % Basophils % (0.2-1.2) % Absolute Granulocytes (1.78-5.38) x10^3/uL Basophils # (0.01-0.08) x10^3/uL Absolute Retic (0.026-0.095) x10^6/uL Retic Hgb Content (28-36.6) pg Sodium 147 H (135-145) mmol/L Potassium 3.7 (3.5-5.1) mmol/L Chloride 106 (98-107) mmol/L Carbon Dioxide 29 (22-30) mmol/L Anion Gap 15.5 H (5-15) MEQ/L BUN 27 H (9-20) mg/dL Creatinine 1.12 (0.66-1.25) mg/dL Estimated GFR 66.4 ML/MIN Glucose 164 H (74-106) mg/dL POC Glucometer 148 H 150 H (74 to 106) mg/dL Calcium 11.2 H (8.4-10.2) mg/dL Iron (49-181) ug/dL TIBC (261-497) ug/dL Iron Saturation (20-39) % Ferritin (17.9-464) ng/mL Total Bilirubin 0.70 (0.2-1.3) mg/dL AST 33 (17-59) U/L ALT 30 (0-50) U/L Alkaline Phosphatase 35 L (38-126) U/L Serum Total Protein 6.5 (6.3-8.2) g/dL Albumin 3.9 (3.5-5.0) g/dL Vitamin B12 (239-931) pg/mL Folic Acid (2.76 - >20) ng/mL 06/20/24 06/21/24 06/21/24 Range/Units 20:06 04:48 04:48 WBC 4.7 (4.23-9.07) x10^3/uL RBC 3.95 L (4.63-6.08) x10^6/uL Hgb 12.1 L (13.7-17.5) g/dL Hct 38.0 L (40.1-51.0) % MCV 96.2 H (79.0-92.2) fL MCH 30.6 (25.7-32.2) pg MCHC 31.8 L (32.3-36.5) g/dL RDW 13.3 (11.6-14.4) % Plt Count 119 L (163-337) x10^3/uL MPV 12.0 (9.4-12.4) fL Gran % 57.2 (34.0-67.9) % Immature Gran % (Auto) 0.9 H (0.001-0.429) % Reticulocyte % (Auto) (0.51-1.81) % Nucleat RBC Rel Count 0.0 (0.00-0.2) % Eos # (Auto) 0.11 (0.04-0.54) x10^3/uL Immature Gran # (Auto) 0.04 H (0.001-0.031) x10^3u/L Absolute Lymphs (auto) 0.75 L (1.32-3.57) x10^3/uL Absolute Monos (auto) 1.07 H (0.30-0.82) x10^3/uL Absolute Nucleated RBC 0.00 (0.00-0.012) x10^3u/L Lymphocytes % 16.1 L (21.8-53.1) % Monocytes % 23.0 H (5.3-12.2) % Eosinophils % 2.4 (0.8-7.0) % Basophils % 0.4 (0.2-1.2) % Absolute Granulocytes 2.67 (1.78-5.38) x10^3/uL Basophils # 0.02 (0.01-0.08) x10^3/uL Absolute Retic (0.026-0.095) x10^6/uL Retic Hgb Content (28-36.6) pg Sodium 141 (135-145) mmol/L Potassium 4.0 (3.5-5.1) mmol/L Chloride 104 (98-107) mmol/L Carbon Dioxide 27 (22-30) mmol/L Anion Gap 14.0 (5-15) MEQ/L BUN 26 H (9-20) mg/dL Creatinine 1.02 (0.66-1.25) mg/dL Estimated GFR 74.3 ML/MIN Glucose 155 H (74-106) mg/dL POC Glucometer 117 H (74 to 106) mg/dL Calcium 11.1 H (8.4-10.2) mg/dL Iron (49-181) ug/dL TIBC (261-497) ug/dL Iron Saturation (20-39) % Ferritin (17.9-464) ng/mL Total Bilirubin 1.00 (0.2-1.3) mg/dL AST 33 (17-59) U/L ALT 24 (0-50) U/L Alkaline Phosphatase 38 (38-126) U/L Serum Total Protein 6.1 L (6.3-8.2) g/dL Albumin 3.6 (3.5-5.0) g/dL Vitamin B12 (239-931) pg/mL Folic Acid (2.76 - >20) ng/mL 06/21/24 06/21/24 Range/Units 07:22 11:07 WBC (4.23-9.07) x10^3/uL RBC (4.63-6.08) x10^6/uL Hgb (13.7-17.5) g/dL Hct (40.1-51.0) % MCV (79.0-92.2) fL MCH (25.7-32.2) pg MCHC (32.3-36.5) g/dL RDW (11.6-14.4) % Plt Count (163-337) x10^3/uL MPV (9.4-12.4) fL Gran % (34.0-67.9) % Immature Gran % (Auto) (0.001-0.429) % Reticulocyte % (Auto) (0.51-1.81) % Nucleat RBC Rel Count (0.00-0.2) % Eos # (Auto) (0.04-0.54) x10^3/uL Immature Gran # (Auto) (0.001-0.031) x10^3u/L Absolute Lymphs (auto) (1.32-3.57) x10^3/uL Absolute Monos (auto) (0.30-0.82) x10^3/uL Absolute Nucleated RBC (0.00-0.012) x10^3u/L Lymphocytes % (21.8-53.1) % Monocytes % (5.3-12.2) % Eosinophils % (0.8-7.0) % Basophils % (0.2-1.2) % Absolute Granulocytes (1.78-5.38) x10^3/uL Basophils # (0.01-0.08) x10^3/uL Absolute Retic (0.026-0.095) x10^6/uL Retic Hgb Content (28-36.6) pg Sodium (135-145) mmol/L Potassium (3.5-5.1) mmol/L Chloride (98-107) mmol/L Carbon Dioxide (22-30) mmol/L Anion Gap (5-15) MEQ/L BUN (9-20) mg/dL Creatinine (0.66-1.25) mg/dL Estimated GFR ML/MIN Glucose (74-106) mg/dL POC Glucometer 133 H 131 H (74 to 106) mg/dL Calcium (8.4-10.2) mg/dL Iron (49-181) ug/dL TIBC (261-497) ug/dL Iron Saturation (20-39) % Ferritin (17.9-464) ng/mL Total Bilirubin (0.2-1.3) mg/dL AST (17-59) U/L ALT (0-50) U/L Alkaline Phosphatase (38-126) U/L Serum Total Protein (6.3-8.2) g/dL Albumin (3.5-5.0) g/dL Vitamin B12 (239-931) pg/mL Folic Acid (2.76 - >20) ng/mL Radiology Exams: Radiology Procedures Category Date Time Status CHEST WITH CONTRAST [CT] Routine Exams 06/21/24 10:47 Ordered Medications: Medications Generic Name Dose Route Start Last Admin Trade Name Freq PRN Reason Stop Dose Admin Cholecalciferol 2,000 unit 06/19/24 10:00 06/20/24 10:04 Cholecalciferol (Vitamin D3) 1000 Unit Tablet PO 07/19/24 09:59 2,000 unit DAILY REYNALDO Administration Cyanocobalamin 2,000 mcg 06/21/24 10:00 Cyanocobalamin 500 Mcg Tablet PO 07/21/24 09:59 DAILY REYNALDO Fenofibrate 72.5 mg 06/19/24 22:00 06/20/24 21:26 Fenofibrate,Micronized 145 Mg Tablet PO 07/19/24 21:59 72.5 mg HS REYNALDO Administration Dextrose/Sodium Chloride 1,000 mls @ 75 mls/hr 06/20/24 07:15 06/21/24 11:09 Dextrose 5% -0.45 Nacl 1000 Ml IV 07/20/24 07:14 Not Given .[id number] REYNALDO Insulin Human Lispro 0 unit 06/18/24 15:31 Insulin Lispro 1 Unit SQ 07/18/24 15:30 UD PRN HYPERGLYCEMIA Losartan Potassium 50 mg 06/19/24 10:00 06/20/24 10:05 Losartan Potassium 50 Mg Tablet PO 07/19/24 09:59 50 mg DAILY REYNALDO Administration Magnesium Oxide 400 mg 06/18/24 22:00 06/20/24 21:26 Magnesium Oxide 400 Mg Tablet PO 07/18/24 21:59 400 mg BID REYNALDO Administration Naloxone HCl 0.4 mg 06/18/24 16:43 Naloxone Hcl 0.4 Mg/Ml Ml IV 07/18/24 16:42 PRN PRN OVERDOSE Ondansetron HCl 4 mg 06/18/24 15:31 06/20/24 21:28 Ondansetron Hcl 4 Mg/2 Ml Vial IV 07/18/24 15:30 4 mg Q6H PRN PRN Administration NAUSEA/VOMITING Pantoprazole Sodium 40 mg 06/18/24 16:45 06/20/24 10:23 Pantoprazole 40 Mg Vial IV 07/18/24 16:44 40 mg Q24H10 REYNALDO Administration Patient Own Medication 1 each 06/20/24 13:00 06/20/24 13:41 Patient Own Med Misc PO 07/20/24 12:59 1 each DAILY REYNALDO Administration Phenol 0 ml 06/18/24 16:46 Phenol/Sodium Phenolate 180 Ml Bottle PO 07/18/24 16:45 PRN PRN MODERATE PAIN Potassium Chloride 20 meq 06/18/24 22:00 06/20/24 21:25 Potassium Chloride Tab 10 Meq Tab PO 07/18/24 21:59 20 meq BID REYNALDO Administration Simethicone 80 mg 06/21/24 06:58 Simethicone 80 Mg Tab.Chew PO 07/21/24 06:57 Q8H PRN PRN GAS Simvastatin 40 mg 06/18/24 22:00 06/20/24 21:26 Simvastatin 20 Mg Tablet PO 07/18/24 21:59 40 mg HS REYNALDO Administration Discontinued Medications Generic Name Dose Route Start Last Admin Trade Name Freq PRN Reason Stop Dose Admin Atorvastatin Calcium 40 mg 06/18/24 22:00 Atorvastatin Calcium 40 Mg Tablet PO 07/18/24 21:59 HS REYNALDO Calcium Carbonate/Glycine Confirm 06/20/24 21:20 Calcium Carbonate 750 Mg 750 Mg Tab.Chew Administered 06/20/24 21:21 Dose 750 mg .ROUTE .STK-MED ONE Calcium Carbonate/Glycine 750 mg 06/20/24 21:32 06/20/24 21:33 Calcium Carbonate 750 Mg 750 Mg Tab.Chew PO 07/20/24 21:44 750 mg Q8H PRN Administration GAS Calcium Carbonate/Glycine 750 mg 06/21/24 06:58 Calcium Carbonate 750 Mg 750 Mg Tab.Chew PO 07/21/24 06:57 Q8H PRN PRN GAS Fentanyl Citrate 50 mcg 06/18/24 10:41 06/18/24 10:54 Fentanyl Citrate 100 Mcg/2 Ml* Vial IV 06/18/24 10:42 50 mcg STAT ONE Administration Fentanyl Citrate Confirm 06/18/24 10:51 Fentanyl Citrate 100 Mcg/2 Ml* Vial Administered 06/18/24 10:52 Dose 100 mcg .ROUTE .STK-MED ONE Hydromorphone HCl 0.5 mg 06/18/24 16:37 06/20/24 10:56 Hydromorphone 1 Mg/1ml Inj IV 06/23/24 16:36 0.5 mg Q4H PRN PRN Administration PAIN Sodium Chloride 500 mls @ 500 mls/hr 06/18/24 10:43 06/18/24 11:58 Sodium Chloride 0.9% 500 Ml IV 06/18/24 11:42 Infused .Q1H ONE Infusion Sodium Chloride Confirm 06/18/24 10:52 Sodium Chloride 0.9% 500 Ml Administered 06/18/24 10:53 Dose 500 mls @ ud IV .STK-MED ONE Sodium Chloride 500 mls @ 500 mls/hr 06/18/24 11:45 06/18/24 13:05 Sodium Chloride 0.9% 500 Ml IV 06/18/24 12:44 Infused .Q1H ONE Infusion Sodium Chloride Confirm 06/18/24 11:56 Sodium Chloride 0.9% 500 Ml Administered 06/18/24 11:57 Dose 500 mls @ ud IV .STK-MED ONE Sodium Chloride 1,000 mls @ 100 mls/hr 06/18/24 15:45 06/19/24 23:36 Sodium Chloride 0.9% 1000 Ml IV 07/18/24 15:44 100 mls/hr .Q10H REYNALDO Administration Miscellaneous Information 1 each 06/19/24 07:30 Medication Intervention 1 Each Each 07/19/24 07:29 .RN TO CHECK REYNALDO Non-Formulary Medication 20 meq 06/18/24 22:00 Potassium Chloride 20 Meq [Klor-Con 20 Meq] PO 07/18/24 21:59 BID REYNALDO Non-Formulary Medication 400 mg 06/18/24 22:00 Magnesium Oxide [Magnesium] PO 07/18/24 21:59 BID REYNALDO Non-Formulary Medication 48 mg 06/18/24 22:00 06/18/24 21:51 Fenofibrate Nanocrystallized [Tricor] PO 07/18/24 21:59 Not Given HS REYNALDO Ondansetron HCl 4 mg 06/18/24 10:41 06/18/24 10:54 Ondansetron Hcl 4 Mg/2 Ml Vial IV 06/18/24 10:42 4 mg STAT ONE Administration Ondansetron HCl Confirm 06/18/24 10:50 Ondansetron Hcl 4 Mg/2 Ml Vial Administered 06/18/24 10:51 Dose 4 mg .ROUTE .STK-MED ONE Simethicone Confirm 06/20/24 21:20 Simethicone 80 Mg Tab.Chew Administered 06/20/24 21:21 Dose 80 mg .ROUTE .STK-MED ONE Simethicone 80 mg 06/20/24 21:31 06/20/24 21:33 Simethicone 80 Mg Tab.Chew PO 07/20/24 21:30 80 mg Q8H PRN Administration GAS Simvastatin Confirm 06/18/24 21:51 Simvastatin 20 Mg Tablet Administered 06/18/24 21:52 Dose 40 mg .ROUTE .STK-MED ONE Multi-Disciplinary Progress Notes: Multi-Disciplinary Progress Notes 06/21/24 09:20 Respiratory Note by Emerald Greene ROOM AIR RESTING SPO2 87%. PLCED BACK ON O2 2LPM Initialized on 06/21/24 09:20 - END OF NOTE Assessment/Plan (1) Small bowel obstruction Current Visit: Yes Status: Resolved Assessment & Plan: - Resolved - + BM's and passing gas - GS consulted- awaiting recs for advancement of diet - Clear liquid diet - IVF - TELE - Dilaudid stopped Code(s): K56.609 - UNSP INTESTNL OBST, UNSP TO PARTIAL VERSUS COMPLETE OBST (2) Dyspnea Current Visit: Yes Status: Acute Assessment & Plan: - CTA today - 4lNC- 93% - Baseline RA - CXR negative - CBC reviewed Code(s): R06.00 - DYSPNEA, UNSPECIFIED (3) Vitamin B 12 deficiency Current Visit: Yes Status: Acute Assessment & Plan: - Vitamin B12 214 - Started Cyanocobalamin PO 2000 daily - Will need OP f/u Code(s): E53.8 - DEFICIENCY OF OTHER SPECIFIED B GROUP VITAMINS (4) Iron deficiency anemia Current Visit: Yes Status: Acute Assessment & Plan: - Started ferrous sulfate daily - Iron labs reviewed- Iron sat 11, Iron 29 - Hgb 12.1 Code(s): D50.9 - IRON DEFICIENCY ANEMIA, UNSPECIFIED (5) Thrombocytopenia Current Visit: Yes Status: Acute Assessment & Plan: - PLT 119- trend - Will need OP f/u with hematology (6) Abdominal aortic aneurysm (AAA) 3.0 cm to 5.5 cm in diameter in male Current Visit: Yes Status: Acute Assessment & Plan: - 4.2 cm - Will need OP f/u with PCP for repeat imaging/ US or CT in 12 months per guidelines. - As seen on CT abd/pelvis Code(s): I71.40 - ABDOMINAL AORTIC ANEURYSM, WITHOUT RUPTURE, UNSPECIFIED (7) CAD (coronary artery disease) Current Visit: Yes Status: Chronic Assessment & Plan: - Continue home meds - Monitor telemetry - O2 4lNC 93% - LASIX held Code(s): I25.10 - ATHSCL HEART DISEASE OF [place] CORONARY ARTERY W/O ANG PCTRS (8) Hypercalcemia Current Visit: Yes Status: Acute Assessment & Plan: - Ca+ 11.1 - TUMS tabs stopped - Zara D - normal - PTH pending Code(s): E83.52 - HYPERCALCEMIA (9) Type 2 diabetes mellitus Current Visit: Yes Status: Chronic Qualifiers: Diabetes mellitus metal fence erector insulin use: without metal fence erector use Diabetes mellitus complication status: without complication Qualified Code(s): E11.9 - Type 2 diabetes mellitus without complications Assessment & Plan: -Monitor blood glucose q4h while NPO and hold oral agents -Use sliding scale insulin or basal insulin as needed -A1c 5.90- 03/26/24 - NPO today for CTA (10) Obesity (BMI 30.0-34.9) Current Visit: Yes Status: Chronic Assessment & Plan: - Advised ADA diet and exercise control Code(s): E66.811 - OBESITY, CLASS 1 (11) Hyperlipidemia Current Visit: Yes Status: Chronic Assessment & Plan: - Continue home meds Code(s): E78.5 - HYPERLIPIDEMIA, UNSPECIFIED (12) Pancytopenia Current Visit: Yes Status: Resolved Assessment & Plan: - resolved- WBC ok today Code(s): D61.818 - OTHER PANCYTOPENIA (13) Hyperkalemia Current Visit: Yes Status: Resolved Assessment & Plan: - resolved Code(s): E87.5 - HYPERKALEMIA (14) Dehydration Current Visit: Yes Status: Resolved Assessment & Plan: - Resolved Code(s): E86.0 - DEHYDRATION (15) Total bilirubin, elevated Current Visit: Yes Status: Acute Assessment & Plan: - Resolved VTE: SCD's PPI: Protonix Next of KIN: Spouse Maggie- [phone] D/C plan: 1-2 days Code status: Full Code(s): R17 - UNSPECIFIED JAUNDICE
--- NOTE | 2024-06-21 17:02 | XRAY ---
Indication: Short of breath. Oxygen demand. Multiple contiguous axial images obtained through the chest using 80 cc Isovue 370 contrast and PE protocol. Comparison: None Good opacification pulmonary arteries to include the lobar and segmental branches. Mild diffuse respiration artifact limits evaluation of the more distal lobar and segmental branches. Nonoccluding pulmonary emboli seen in segmental branches right middle and lesser degree right upper lobes. Heart is borderline enlarged with scattered coronary calcifications. Aorta moderately arteriosclerotic without aneurysm/dissection. Several small left hilar calcified nodes. No pathologic mediastinal/hilar lymphadenopathy. Lungs demonstrates mild diffuse pulmonary emphysema and bilateral mid to lower lung subsegmental atelectasis/scarring. No suspicious pulmonary mass/nodule, infiltrate, effusion, or pneumothorax. Bony thorax intact with osteopenia and minimal degenerative changes throughout the spine. Incidental oval noncalcified soft tissue mass right lateral to T9 vertebral body measuring at least 3.9 x 2.0 x 3.1 cm. Limited upper abdomen including adrenal glands are unremarkable. Impression: 1. Respiration artifact limits pulmonary embolus evaluation. Nonoccluding pulmonary emboli right upper and right middle lobes. No distal pulmonary infarct. 2. T9 paraspinal soft tissue mass as detailed. Partial differential offered for neurogenic tumors, lymphoma, metastasis, and extramedullary hematopoiesis. 3. Chronic findings including pulmonary emphysema, atelectasis/scarring, borderline cardiomegaly, arteriosclerotic disease, and chronic bony findings. Comment: Telephone report was given to the Final Cigar And Box Examiner, Jamaal at 1651 hrs. on June 21, 2024.
[2024-06-21] MEDS: ENOXAPARIN SODIUM SQ SCH (17:41)
[2024-06-22 04:49] LABS: Absolute Neutrophil Ct (ANC) 1.95 x10^3/uL (1.78-5.38); BASOPHIL % 0.5 % (0.2-1.2); Eosinophil % 1.9 % (0.8-7.0); Hematocrit 36.3 % (40.1-51.0); Hemoglobin 11.5 g/dL (13.7-17.5); IMMATURE GRAN % 1.2 % (0.001-0.429); Lymphocytes % 29.2 % (21.8-53.1); Mean Cell Volume 94.3 fL (79.0-92.2); Mean Corpuscular Hemoglobin 29.9 pg (25.7-32.2); Mean Corpuscular Hgb Concent. 31.7 g/dL (32.3-36.5); Mean Platelet Volume 11.8 fL (9.4-12.4); Monocytes % 19.7 % (5.3-12.2); Neutrophil % 47.5 % (34.0-67.9); Platelet Count 116 x10^3/uL (163-337); Red Blood Count 3.85 x10^6/uL (4.63-6.08); Red Cell Distribution Width 12.8 % (11.6-14.4); White Blood Count 4.1 x10^3/uL (4.23-9.07)
[2024-06-22 04:50] LABS: Basophil (Absolute #) 0.02 x10^3/uL (0.01-0.08); Eosinophil (Absolute #) 0.08 x10^3/uL (0.04-0.54); IMMATURE GRAN # 0.05 x10^3u/L (0.001-0.031); Monocyte (Absolute #) 0.81 x10^3/uL (0.30-0.82)
[2024-06-22 05:15] LABS: ALBUMIN 3.2 g/dL (3.5-5.0); BILIRUBIN,TOTAL 0.6 mg/dL (0.2-1.3); Calcium 10.8 mg/dL (8.4-10.2); Creatinine 1 1.02 mg/dL (0.66-1.25); EST GLOMERULAR FILTRATION RATE 74.3 ML/MIN; Total Protein 5.5 g/dL (6.3-8.2)
[2024-06-22] MEDS: FEOSOL 325 MG PO SCH (09:23)
--- NOTE | 2024-06-22 09:59 | PCM.NOTE ---
Date and Time: 06/22/24 0952 Subjective Assessment: 06/21/24 The patient is an 78-year-old male with a history of CAD (s/p stent), diabetes, and glaucoma, currently on hospital day 4 following admission for small bowel obstruction (SBO) identified on CT with a transition point in the right lower quadrant. He presented with abdominal pain, distention, and vomiting but has shown steady clinical improvement. A small bowel follow-through revealed delayed transit with eventual passage of contrast to the colon, suggesting a resolving, non-mechanical obstruction. He has had multiple bowel movements, is passing gas, and has decreased abdominal distention with normalized bowel sounds. The NG tube was removed yesterday, and a clear liquid diet has been initiated. Labs show persistent mild hypercalcemia (now 11.4), prompting further evaluation with PTH and vitamin D levels. Pancytopenia is under investigation, and low vitamin B12 was identified and is being replaced orally. Tums have been discontinued due to the elevated calcium. The patient developed a need for supplemental oxygen (4L NC, SpO? 93%) on 06/18 despite a normal chest X-ray and no known pulmonary disease; a CTA has been ordered for further evaluation. Pain is well-controlled without IV opioids. The patient reports no new concerns and continues to be monitored closely. 06/22/24 Pt resting in the chair. Discussed CT findings and labs in detail. Yesterday CTA of chest showed right upper and middle lobe PE's. As well as new T9 paraspinal soft tissue mass. Will order MRI for further evaluation of mass if heart stent is compatible. Nurse calling Dr. Jung's office to find out. Echo and venous duplex of BLLE pending today. Pt passing gas and solid stools now. He was transitioned to a soft diet and can advance as tolerated by today. has also signed off pt's case. O2 weaned down to 2lNC 96% today. He denies any further concerns at this time. - Review of Systems Constitutional: No Fever, No Chills Eyes: No Symptoms Ears, Nose, & Throat: No Symptoms Respiratory: Short Of Breath, No Cough Cardiac: No Chest Pain, No Edema, No Syncope Abdominal/Gastrointestinal: No Abdominal Pain, No Nausea, No Vomiting, No Diarr hea Genitourinary Symptoms: No Dysuria Musculoskeletal: Back Pain, No Neck Pain Skin: No Rash Neurological: No Dizziness, No Focal Weakness, No Sensory Changes Psychological: No Symptoms Endocrine: No Symptoms Hematologic/Lymphatic: No Symptoms Immunological/Allergic: No Symptoms Objective Exam General Appearance: no apparent distress, alert, obese Neurologic Exam: alert, oriented x 3, cooperative, normal mood/affect, nml cerebellar function, sensation nml, No motor deficits Skin Exam: normal color, warm, dry Eye Exam: PERRL, EOMI, eyes nml inspection Ears, Nose, Throat Exam: normal ENT inspection, pharynx normal, moist mucous membranes Neck Exam: normal inspection, non-tender, supple, full range of motion Respiratory Exam: normal breath sounds, lungs clear, No respiratory distress Cardiovascular Exam: regular rate/rhythm, normal heart sounds Gastrointestinal/Abdomen Exam: soft, No tenderness, No mass Extremity Exam: normal inspection, normal range of motion Back Exam: normal inspection, normal range of motion, decreased range of motion (lumbar back), No CVA tenderness, No vertebral tenderness Male Genitalia Exam: deferred Rectal Exam: deferred Objective Data Vital Signs: Vital Signs - 24 hr Temp Pulse Resp BP Pulse Ox 06/22/24 07:47 96 06/22/24 07:42 97.9 F 72 16 123/60 93 L 06/22/24 04:00 98.0 F 72 28 H 112/63 91 L 06/21/24 23:51 98.0 F 72 28 H 112/63 91 L 06/21/24 20:07 93 L 06/21/24 20:00 97.8 F 67 20 108/61 92 L 06/21/24 16:00 97.6 F 64 18 99/51 93 L 06/21/24 11:31 97.6 F 68 20 101/55 94 L Pain Assessment - Last Documented Pain Intensity 4 Pain Scale Used 0-10 Pain Scale Intake and Output: Intake & Output 06/19/24 06/20/24 06/21/24 06/22/24 11:59 11:59 11:59 11:59 Intake Total 1054 2360 3482 2304 Output Total 2600 5050 600 0 Balance -1546 -9770 2882 2304 Weight 97.7 kg 90.6 kg 90.6 kg Lab Results: Lab Results-Last 24 Hours 06/20/24 06/21/24 06/21/24 Range/Units 08:50 11:07 16:30 WBC (4.23-9.07) x10^3/uL RBC (4.63-6.08) x10^6/uL Hgb (13.7-17.5) g/dL Hct (40.1-51.0) % MCV (79.0-92.2) fL MCH (25.7-32.2) pg MCHC (32.3-36.5) g/dL RDW (11.6-14.4) % Plt Count (163-337) x10^3/uL MPV (9.4-12.4) fL Gran % (34.0-67.9) % Immature Gran % (Auto) (0.001-0.429) % Nucleat RBC Rel Count (0.00-0.2) % Eos # (Auto) (0.04-0.54) x10^3/uL Immature Gran # (Auto) (0.001-0.031) x10^3u/L Absolute Lymphs (auto) (1.32-3.57) x10^3/uL Absolute Monos (auto) (0.30-0.82) x10^3/uL Absolute Nucleated RBC (0.00-0.012) x10^3u/L Lymphocytes % (21.8-53.1) % Monocytes % (5.3-12.2) % Eosinophils % (0.8-7.0) % Basophils % (0.2-1.2) % Absolute Granulocytes (1.78-5.38) x10^3/uL Basophils # (0.01-0.08) x10^3/uL Sodium (135-145) mmol/L Potassium (3.5-5.1) mmol/L Chloride (98-107) mmol/L Carbon Dioxide (22-30) mmol/L Anion Gap (5-15) MEQ/L BUN (9-20) mg/dL Creatinine (0.66-1.25) mg/dL Estimated GFR ML/MIN Glucose (74-106) mg/dL POC Glucometer 131 H 102 (74 to 106) mg/dL Calcium (8.4-10.2) mg/dL Total Bilirubin (0.2-1.3) mg/dL AST (17-59) U/L ALT (0-50) U/L Alkaline Phosphatase (38-126) U/L NT-Pro-B Natriuret Pep (<300) pg/mL Serum Total Protein (6.3-8.2) g/dL Albumin (3.5-5.0) g/dL PTH Intact Whole Molec 48 (15-65) pg/mL 06/21/24 06/22/24 06/22/24 Range/Units 20:45 04:44 04:44 WBC 4.1 L (4.23-9.07) x10^3/uL RBC 3.85 L (4.63-6.08) x10^6/uL Hgb 11.5 L (13.7-17.5) g/dL Hct 36.3 L (40.1-51.0) % MCV 94.3 H (79.0-92.2) fL MCH 29.9 (25.7-32.2) pg MCHC 31.7 L (32.3-36.5) g/dL RDW 12.8 (11.6-14.4) % Plt Count 116 L (163-337) x10^3/uL MPV 11.8 (9.4-12.4) fL Gran % 47.5 (34.0-67.9) % Immature Gran % (Auto) 1.2 H (0.001-0.429) % Nucleat RBC Rel Count 0.0 (0.00-0.2) % Eos # (Auto) 0.08 (0.04-0.54) x10^3/uL Immature Gran # (Auto) 0.05 H (0.001-0.031) x10^3u/L Absolute Lymphs (auto) 1.20 L (1.32-3.57) x10^3/uL Absolute Monos (auto) 0.81 (0.30-0.82) x10^3/uL Absolute Nucleated RBC 0.00 (0.00-0.012) x10^3u/L Lymphocytes % 29.2 (21.8-53.1) % Monocytes % 19.7 H (5.3-12.2) % Eosinophils % 1.9 (0.8-7.0) % Basophils % 0.5 (0.2-1.2) % Absolute Granulocytes 1.95 (1.78-5.38) x10^3/uL Basophils # 0.02 (0.01-0.08) x10^3/uL Sodium 138 (135-145) mmol/L Potassium 4.0 (3.5-5.1) mmol/L Chloride 102 (98-107) mmol/L Carbon Dioxide 30 (22-30) mmol/L Anion Gap 10.0 (5-15) MEQ/L BUN 24 H (9-20) mg/dL Creatinine 1.02 (0.66-1.25) mg/dL Estimated GFR 74.3 ML/MIN Glucose 110 H (74-106) mg/dL POC Glucometer 126 H (74 to 106) mg/dL Calcium 10.8 H (8.4-10.2) mg/dL Total Bilirubin 0.60 (0.2-1.3) mg/dL AST 34 (17-59) U/L ALT 23 (0-50) U/L Alkaline Phosphatase 36 L (38-126) U/L NT-Pro-B Natriuret Pep 502 (<300) pg/mL Serum Total Protein 5.5 L (6.3-8.2) g/dL Albumin 3.2 L (3.5-5.0) g/dL PTH Intact Whole Molec (15-65) pg/mL 06/22/24 Range/Units 07:20 WBC (4.23-9.07) x10^3/uL RBC (4.63-6.08) x10^6/uL Hgb (13.7-17.5) g/dL Hct (40.1-51.0) % MCV (79.0-92.2) fL MCH (25.7-32.2) pg MCHC (32.3-36.5) g/dL RDW (11.6-14.4) % Plt Count (163-337) x10^3/uL MPV (9.4-12.4) fL Gran % (34.0-67.9) % Immature Gran % (Auto) (0.001-0.429) % Nucleat RBC Rel Count (0.00-0.2) % Eos # (Auto) (0.04-0.54) x10^3/uL Immature Gran # (Auto) (0.001-0.031) x10^3u/L Absolute Lymphs (auto) (1.32-3.57) x10^3/uL Absolute Monos (auto) (0.30-0.82) x10^3/uL Absolute Nucleated RBC (0.00-0.012) x10^3u/L Lymphocytes % (21.8-53.1) % Monocytes % (5.3-12.2) % Eosinophils % (0.8-7.0) % Basophils % (0.2-1.2) % Absolute Granulocytes (1.78-5.38) x10^3/uL Basophils # (0.01-0.08) x10^3/uL Sodium (135-145) mmol/L Potassium (3.5-5.1) mmol/L Chloride (98-107) mmol/L Carbon Dioxide (22-30) mmol/L Anion Gap (5-15) MEQ/L BUN (9-20) mg/dL Creatinine (0.66-1.25) mg/dL Estimated GFR ML/MIN Glucose (74-106) mg/dL POC Glucometer 93 (74 to 106) mg/dL Calcium (8.4-10.2) mg/dL Total Bilirubin (0.2-1.3) mg/dL AST (17-59) U/L ALT (0-50) U/L Alkaline Phosphatase (38-126) U/L NT-Pro-B Natriuret Pep (<300) pg/mL Serum Total Protein (6.3-8.2) g/dL Albumin (3.5-5.0) g/dL PTH Intact Whole Molec (15-65) pg/mL Radiology Exams: Radiology Procedures Category Date Time Status CHEST WITH CONTRAST [CT] Routine Exams 06/21/24 10:47 Completed ECHO W/2D AND DOPPLER [US] Routine Exams 06/22/24 08:00 Ordered VENOUS BILATERAL EXTREMITY [US] Routine Exams 06/22/24 08:00 Ordered Medications: Medications Generic Name Dose Route Start Last Admin Trade Name Freq PRN Reason Stop Dose Admin Cholecalciferol 2,000 unit 06/19/24 10:00 06/22/24 09:23 Cholecalciferol (Vitamin D3) 1000 Unit Tablet PO 07/19/24 09:59 2,000 unit DAILY REYNALDO Administration Cyanocobalamin 2,000 mcg 06/21/24 10:00 06/22/24 09:23 Cyanocobalamin 500 Mcg Tablet PO 07/21/24 09:59 2,000 mcg DAILY REYNALDO Administration Enoxaparin Sodium 90 mg 06/21/24 18:00 06/22/24 05:13 Enoxaparin Sodium 100 Mg/Ml Syringe SQ 07/21/24 17:59 90 mg Q12H REYNALDO Administration Fenofibrate 72.5 mg 06/19/24 22:00 06/21/24 23:17 Fenofibrate,Micronized 145 Mg Tablet PO 07/19/24 21:59 72.5 mg HS REYNALDO Administration Ferrous Sulfate 325 mg 06/22/24 10:00 06/22/24 09:23 Ferrous Sulfate 325 Mg Tablet PO 07/22/24 09:59 325 mg DAILY REYNALDO Administration Insulin Human Lispro 0 unit 06/18/24 15:31 Insulin Lispro 1 Unit SQ 07/18/24 15:30 UD PRN HYPERGLYCEMIA Losartan Potassium 50 mg 06/19/24 10:00 06/22/24 09:23 Losartan Potassium 50 Mg Tablet PO 07/19/24 09:59 50 mg DAILY REYNALDO Administration Magnesium Oxide 400 mg 06/18/24 22:00 06/22/24 09:23 Magnesium Oxide 400 Mg Tablet PO 07/18/24 21:59 400 mg BID REYNALDO Administration Naloxone HCl 0.4 mg 06/18/24 16:43 Naloxone Hcl 0.4 Mg/Ml Ml IV 07/18/24 16:42 PRN PRN OVERDOSE Non-Formulary Medication 1 each 06/22/24 10:00 Hold Metformin Products For 48hrs 06/23/24 10:01 DAILY REYNALDO Ondansetron HCl 4 mg 06/18/24 15:31 06/20/24 21:28 Ondansetron Hcl 4 Mg/2 Ml Vial IV 07/18/24 15:30 4 mg Q6H PRN PRN Administration NAUSEA/VOMITING Pantoprazole Sodium 40 mg 06/18/24 16:45 06/21/24 11:13 Pantoprazole 40 Mg Vial IV 07/18/24 16:44 40 mg Q24H10 REYNALDO Administration Patient Own Medication 1 each 06/20/24 13:00 06/22/24 09:37 Patient Own Med Misc PO 07/20/24 12:59 1 each DAILY REYNALDO Administration Phenol 0 ml 06/18/24 16:46 Phenol/Sodium Phenolate 180 Ml Bottle PO 07/18/24 16:45 PRN PRN MODERATE PAIN Potassium Chloride 20 meq 06/18/24 22:00 06/22/24 09:23 Potassium Chloride Tab 10 Meq Tab PO 07/18/24 21:59 20 meq BID REYNALDO Administration Simethicone 80 mg 06/21/24 06:58 Simethicone 80 Mg Tab.Chew PO 07/21/24 06:57 Q8H PRN PRN GAS Simvastatin 40 mg 06/18/24 22:00 06/21/24 23:18 Simvastatin 20 Mg Tablet PO 07/18/24 21:59 40 mg HS REYNALDO Administration Discontinued Medications Generic Name Dose Route Start Last Admin Trade Name Freq PRN Reason Stop Dose Admin Atorvastatin Calcium 40 mg 06/18/24 22:00 Atorvastatin Calcium 40 Mg Tablet PO 07/18/24 21:59 HS REYNALDO Calcium Carbonate/Glycine Confirm 06/20/24 21:20 Calcium Carbonate 750 Mg 750 Mg Tab.Chew Administered 06/20/24 21:21 Dose 750 mg .ROUTE .STK-MED ONE Calcium Carbonate/Glycine 750 mg 06/20/24 21:32 06/20/24 21:33 Calcium Carbonate 750 Mg 750 Mg Tab.Chew PO 07/20/24 21:44 750 mg Q8H PRN Administration GAS Calcium Carbonate/Glycine 750 mg 06/21/24 06:58 Calcium Carbonate 750 Mg 750 Mg Tab.Chew PO 07/21/24 06:57 Q8H PRN PRN GAS Fentanyl Citrate 50 mcg 06/18/24 10:41 06/18/24 10:54 Fentanyl Citrate 100 Mcg/2 Ml* Vial IV 06/18/24 10:42 50 mcg STAT ONE Administration Fentanyl Citrate Confirm 06/18/24 10:51 Fentanyl Citrate 100 Mcg/2 Ml* Vial Administered 06/18/24 10:52 Dose 100 mcg .ROUTE .STK-MED ONE Hydromorphone HCl 0.5 mg 06/18/24 16:37 06/20/24 10:56 Hydromorphone 1 Mg/1ml Inj IV 06/23/24 16:36 0.5 mg Q4H PRN PRN Administration PAIN Sodium Chloride 500 mls @ 500 mls/hr 06/18/24 10:43 06/18/24 11:58 Sodium Chloride 0.9% 500 Ml IV 06/18/24 11:42 Infused .Q1H ONE Infusion Sodium Chloride Confirm 06/18/24 10:52 Sodium Chloride 0.9% 500 Ml Administered 06/18/24 10:53 Dose 500 mls @ ud IV .STK-MED ONE Sodium Chloride 500 mls @ 500 mls/hr 06/18/24 11:45 06/18/24 13:05 Sodium Chloride 0.9% 500 Ml IV 06/18/24 12:44 Infused .Q1H ONE Infusion Sodium Chloride Confirm 06/18/24 11:56 Sodium Chloride 0.9% 500 Ml Administered 06/18/24 11:57 Dose 500 mls @ ud IV .STK-MED ONE Sodium Chloride 1,000 mls @ 100 mls/hr 06/18/24 15:45 06/19/24 23:36 Sodium Chloride 0.9% 1000 Ml IV 07/18/24 15:44 100 mls/hr .Q10H REYNALDO Administration Dextrose/Sodium Chloride 1,000 mls @ 75 mls/hr 06/20/24 07:15 06/21/24 11:09 Dextrose 5% -0.45 Nacl 1000 Ml IV 07/20/24 07:14 Not Given .[id number] REYNALDO Miscellaneous Information 1 each 06/19/24 07:30 Medication Intervention 1 Each Each 07/19/24 07:29 .RN TO CHECK REYNALDO Non-Formulary Medication 20 meq 06/18/24 22:00 Potassium Chloride 20 Meq [Klor-Con 20 Meq] PO 07/18/24 21:59 BID REYNALDO Non-Formulary Medication 400 mg 06/18/24 22:00 Magnesium Oxide [Magnesium] PO 07/18/24 21:59 BID REYNALDO Non-Formulary Medication 48 mg 06/18/24 22:00 06/18/24 21:51 Fenofibrate Nanocrystallized [Tricor] PO 07/18/24 21:59 Not Given HS REYNALDO Ondansetron HCl 4 mg 06/18/24 10:41 06/18/24 10:54 Ondansetron Hcl 4 Mg/2 Ml Vial IV 06/18/24 10:42 4 mg STAT ONE Administration Ondansetron HCl Confirm 06/18/24 10:50 Ondansetron Hcl 4 Mg/2 Ml Vial Administered 06/18/24 10:51 Dose 4 mg .ROUTE .STK-MED ONE Simethicone Confirm 06/20/24 21:20 Simethicone 80 Mg Tab.Chew Administered 06/20/24 21:21 Dose 80 mg .ROUTE .STK-MED ONE Simethicone 80 mg 06/20/24 21:31 06/20/24 21:33 Simethicone 80 Mg Tab.Chew PO 07/20/24 21:30 80 mg Q8H PRN Administration GAS Simvastatin Confirm 06/18/24 21:51 Simvastatin 20 Mg Tablet Administered 06/18/24 21:52 Dose 40 mg .ROUTE .STK-MED ONE Multi-Disciplinary Progress Notes: Multi-Disciplinary Progress Notes 06/22/24 08:39 Case Management Note by Renate Zavala S/W PATIENT. WOULD LIKE TO UTILIZE [facility] TO OBTAIN WALKER AND 02 NEEDED. DENIES ANY OTHER NEW NEEDS AT DC.. WANTS TO GO HOME WITH [facility] WHEN DC'D. Initialized on 06/22/24 08:39 - END OF NOTE 06/21/24 16:14 Case Management Note by Chantelle Alexander [facility] HAS ACCEPTED Initialized on 06/21/24 16:14 - END OF NOTE 06/21/24 13:48 Case Management Note by Chantelle Alexander REFERRAL FAXED TO [facility] PER PATIENT/FAMILY REQUEST. THEY WILL NEED UPDA JIL AT TIME OF DC AT [phone]. THEY WILL NEED FAXED THE DC INSTRUCTIONS, DC MED LIST AND DC SUMMARY TO [phone] Initialized on 06/21/24 13:48 - END OF NOTE Assessment/Plan (1) Small bowel obstruction Current Visit: Yes Status: Resolved Code(s): K56.609 - UNSP INTESTNL OBST, UNSP TO PARTIAL VERSUS COMPLETE OBST (2) Dyspnea Current Visit: Yes Status: Acute Code(s): R06.00 - DYSPNEA, UNSPECIFIED (3) Vitamin B 12 deficiency Current Visit: Yes Status: Acute Code(s): E53.8 - DEFICIENCY OF OTHER SPECIFIED B GROUP VITAMINS (4) Iron deficiency anemia Current Visit: Yes Status: Acute Code(s): D50.9 - IRON DEFICIENCY ANEMIA, UNSPECIFIED (5) Thrombocytopenia Current Visit: Yes Status: Acute (6) Abdominal aortic aneurysm (AAA) 3.0 cm to 5.5 cm in diameter in male Current Visit: Yes Status: Acute Code(s): I71.40 - ABDOMINAL AORTIC ANEURYSM, WITHOUT RUPTURE, UNSPECIFIED (7) CAD (coronary artery disease) Current Visit: Yes Status: Chronic Code(s): I25.10 - ATHSCL HEART DISEASE OF [place] CORONARY ARTERY W/O ANG PCTRS (8) Hypercalcemia Current Visit: Yes Status: Acute Code(s): E83.52 - HYPERCALCEMIA (9) Type 2 diabetes mellitus Current Visit: Yes Status: Chronic Qualifiers: Diabetes mellitus vermin exterminator insulin use: without halfway use Diabetes mellitus complication status: without complication Qualified Code(s): E11.9 - Type 2 diabetes mellitus without complications (10) Obesity (BMI 30.0-34.9) Current Visit: Yes Status: Chronic Code(s): E66.811 - OBESITY, CLASS 1 (11) Hyperlipidemia Current Visit: Yes Status: Chronic Code(s): E78.5 - HYPERLIPIDEMIA, UNSPECIFIED (12) Pancytopenia Current Visit: Yes Status: Resolved Code(s): D61.818 - OTHER PANCYTOPENIA (13) Hyperkalemia Current Visit: Yes Status: Resolved Code(s): E87.5 - HYPERKALEMIA (14) Dehydration Current Visit: Yes Status: Resolved Code(s): E86.0 - DEHYDRATION (15) Total bilirubin, elevated Current Visit: Yes Status: Acute Assessment & Plan: (1) Small bowel obstruction Current Visit: Yes Status: Resolved Assessment & Plan: - Resolved - + BM's and passing gas - GS consulted- awaiting recs for advancement of diet - Clear liquid diet - IVF - TELE - Dilaudid stopped 5/6 - Per GS advance diet as tolerated and they have signed off of pt case. Code(s): K56.609 - UNSP INTESTNL OBST, UNSP TO PARTIAL VERSUS COMPLETE OBST (2) Dyspnea Current Visit: Yes Status: Acute Assessment & Plan: - CTA today - 4lNC- 93% - Baseline RA - CXR negative - CBC reviewed Code(s): R06.00 - DYSPNEA, UNSPECIFIED (3) Vitamin B 12 deficiency Current Visit: Yes Status: Acute Assessment & Plan: - Vitamin B12 214 - Started Cyanocobalamin PO 2000 daily - Will need OP f/u Code(s): E53.8 - DEFICIENCY OF OTHER SPECIFIED B GROUP VITAMINS (4) Iron deficiency anemia Current Visit: Yes Status: Acute Assessment & Plan: - Started ferrous sulfate daily - Iron labs reviewed- Iron sat 11, Iron 29 - Hgb 12.1 06/22 - Hgb 11.5 Code(s): D50.9 - IRON DEFICIENCY ANEMIA, UNSPECIFIED (5) Thrombocytopenia Current Visit: Yes Status: Acute Assessment & Plan: - PLT 119- trend - Will need OP f/u with hematology 06/22 - PLT 116 (6) Abdominal aortic aneurysm (AAA) 3.0 cm to 5.5 cm in diameter in male Current Visit: Yes Status: Acute Assessment & Plan: - 4.2 cm - Will need OP f/u with PCP for repeat imaging/ US or CT in 12 months per guidelines. - As seen on CT abd/pelvis Code(s): I71.40 - ABDOMINAL AORTIC ANEURYSM, WITHOUT RUPTURE, UNSPECIFIED (7) CAD (coronary artery disease) Current Visit: Yes Status: Chronic Assessment & Plan: - Continue home meds - Monitor telemetry - O2 4lNC 93% - LASIX held Code(s): I25.10 - ATHSCL HEART DISEASE OF [place] CORONARY ARTERY W/O ANG PCTRS (8) Hypercalcemia Current Visit: Yes Status: Acute Assessment & Plan: - Ca+ 11.1 - TUMS tabs stopped - Vitamin D - normal - PTH pending 06/22 - Ca+ 10.8 Code(s): E83.52 - HYPERCALCEMIA (9) Type 2 diabetes mellitus Current Visit: Yes Status: Chronic Qualifiers: Diabetes mellitus halfway insulin use: without halfway use Diabetes mellitus complication status: without complication Qualified Code(s): E11.9 - Type 2 diabetes mellitus without complications Assessment & Plan: - Monitor blood glucose q4h while NPO and hold oral agents - Use sliding scale insulin or basal insulin as needed - A1c 5.90- 03/26/24 - Transition to Carb consistent diet when able (10) Obesity (BMI 30.0-34.9) Current Visit: Yes Status: Chronic Assessment & Plan: - Advised ADA diet and exercise control Code(s): E66.811 - OBESITY, CLASS 1 (11) Hyperlipidemia Current Visit: Yes Status: Chronic Assessment & Plan: - Continue home meds Code(s): E78.5 - HYPERLIPIDEMIA, UNSPECIFIED (12) Pancytopenia Current Visit: Yes Status: Resolved Assessment & Plan: - noted - F/U with hematology OP Code(s): D61.818 - OTHER PANCYTOPENIA (13) Hyperkalemia Current Visit: Yes Status: Resolved Assessment & Plan: - resolved Code(s): E87.5 - HYPERKALEMIA (14) Dehydration Current Visit: Yes Status: Resolved Assessment & Plan: - Resolved Code(s): E86.0 - DEHYDRATION (15) Total bilirubin, elevated Current Visit: Yes Status: Acute Assessment & Plan: - Resolved Code(s): R17 - UNSPECIFIED JAUNDICE (16) Pulmonary embolism Current Visit: Yes Status: Acute Assessment & Plan: - As seen on CTA Right upper and middle lobes - Therapeutic lovenox started 06/21 - Echo and venous duplex BLLE pending - ON 2lNC 96%- wean- baseline RA Code(s): I26.99 - OTHER PULMONARY EMBOLISM WITHOUT ACUTE COR PULMONALE (17) Paraspinal soft tissue mass Current Visit: Yes Status: Acute Assessment & Plan: - At T9 level seen on CTA - MRI today if heart stent is compatible - Denies loss of bowel or bladder VTE: SCD's PPI: Protonix Next of KIN: Spouse Maggie- [phone] D/C plan: 1-2 days Code status: Full Code(s): M79.89 - OTHER SPECIFIED SOFT TISSUE DISORDERS
[2024-06-22] MEDS: HOLD METFORMIN PRODUCTS FOR 48 HOURS MC SCH (10:41)
--- NOTE | 2024-06-22 11:21 | XRAY ---
Indication: Pulmonary embolus. Two-dimensional sonogram and color Doppler imaging major venous vessels left and right leg performed. Comparison: None No thrombus seen in the examined deep venous vessels left and right leg including greater saphenous vein. Veins demonstrate normal compressibility. Venous waveforms are normal with and without augmentation. Impression: Left and right legs negative for DVT.
[2024-06-22] MEDS: Ativan 2 MG/1 ML VIAL IV SCH (13:07)
[2024-06-22] MEDS: Ativan 2 MG/1 ML VIAL IM ONE (13:33)
--- NOTE | 2024-06-22 15:36 | XRAY ---
Indication: Paraspinal mass. Sagittal and axial MRI thoracic spine performed using pre and post T1 and T2 weighted sequences. 20 cc Dotarem contrast used. Comparison: None Axial images, especially postcontrast T1 images are limited due to motion artifact. Homogeneous well-circumscribed paraspinal soft tissue mass seen right of T9 vertebral body measuring at least 3.1 x 1.6 x 3.3 cm. It is intermediate to high signal on T1 and intermediate to low signal on T2 weighting. No obvious communication with spinal canal/neural foramina. Following gadolinium, there is no obvious enhancement on T1 post sagittal images. Sagittal images demonstrates normal thoracic alignment. Multilevel degenerative disc desiccation signal with minimal displacement narrowing. 7 mm T6 and 5 mm T11 vertebral hemangiomas. No acute fracture, suspicious bony lesions, or abnormal bone marrow signal. Spinal cord is normal in course and caliber without signal abnormality. Conus medullaris terminates thoracolumbar junction. Axial images through disc levels are grossly negative for disc herniation or spinal canal stenosis. Impression: 1. Motion artifact limits exam. 2. Right paraspinal soft tissue mass adjacent to T9 as detailed. Partial differential again offered for neurogenic tumors, non-neurogenic tumors, lymphoma, metastasis, and extramedullary hematopoiesis. 3. Multilevel degenerative disc disease without disc herniation or canal stenosis. 4. Incidental tiny T6/T11 vertebral hemangiomas.
[2024-06-23 05:07] LABS: Absolute Neutrophil Ct (ANC) 2.16 x10^3/uL (1.78-5.38); BASOPHIL % 0.5 % (0.2-1.2); Basophil (Absolute #) 0.02 x10^3/uL (0.01-0.08); Eosinophil % 0.9 % (0.8-7.0); Eosinophil (Absolute #) 0.04 x10^3/uL (0.04-0.54); Hematocrit 34.3 % (40.1-51.0); Hemoglobin 11.1 g/dL (13.7-17.5); IMMATURE GRAN # 0.09 x10^3u/L (0.001-0.031); IMMATURE GRAN % 2.1 % (0.001-0.429); Lymphocyte (Absolute #) 1.28 x10^3/uL (1.32-3.57); Lymphocytes % 29.4 % (21.8-53.1); Mean Cell Volume 94.2 fL (79.0-92.2); Mean Corpuscular Hemoglobin 30.5 pg (25.7-32.2); Mean Corpuscular Hgb Concent. 32.4 g/dL (32.3-36.5); Mean Platelet Volume 12.1 fL (9.4-12.4); Monocyte (Absolute #) 0.77 x10^3/uL (0.30-0.82); Monocytes % 17.7 % (5.3-12.2); Neutrophil % 49.4 % (34.0-67.9); Platelet Count 115 x10^3/uL (163-337); Red Blood Count 3.64 x10^6/uL (4.63-6.08); White Blood Count 4.4 x10^3/uL (4.23-9.07)
[2024-06-23 05:25] LABS: ANION GAP 10.2 MEQ/L (5-15); BILIRUBIN,TOTAL 0.5 mg/dL (0.2-1.3); Calcium 10.3 mg/dL (8.4-10.2); Creatinine 1 0.91 mg/dL (0.66-1.25); EST GLOMERULAR FILTRATION RATE 85.2 ML/MIN; Potassium 4.4 mmol/L (3.5-5.1); Total Protein 5.4 g/dL (6.3-8.2)
--- NOTE | 2024-06-23 08:19 | PROG NOTE ---
Patient seen by Dr. Sudhir Cooper over the weekend. He said he was having bowel movements. Information from Dr. Sudhir Cooper said his small-bowel follow-through went through. The patient is tolerating clear liquids. He was not having any nausea or vomiting at this time, was not having any current abdominal pain. He did have some saturation issues during the night, so a chest CT is pending for further evaluation to evaluate for PE, but from a general surgical standpoint he looked quite well. He is sitting up in a chair. He does not appear to be in any acute distress. His abdomen was soft and nontender on my exam, mild distention. He was moving his bowels. He is tolerating clear liquids. Offer them to try some full liquids. In the meantime, a CT scan of the chest is pending for further medical evaluation of his lung issues. He does not appear to need any acute general surgical intervention necessary at this point. Advance him to full liquids and advance as tolerated after that. Chest CT is pending at the time of my visit.
[2024-06-23] MEDS: ELIQUIS 2.5 MG TABLET PO SCH (09:38)
[2024-06-23] MEDS: Protonix 40MG Tablet PO SCH (09:39)
--- NOTE | 2024-06-23 11:25 | PCM.DS ---
Discharge Summary Date of Admission: 06/18/24 15:02 Date of Discharge: 06/23/24 Admitting Physician: CHRISTINE DIAZ MD Consults: Consults on Case 06/18/24 15:31 Consult Surgery ROUTINE Primary Care Provider: JUANITA GORDON DO Allergies Allergies No Known Drug Allergies Allergy (Verified 03/28/23 07:10) Hospital Summary - Hospital Course Hospital Course: 06/21/24 The patient is an 78-year-old male with a history of CAD (s/p stent), diabetes, and glaucoma, currently on hospital day 4 following admission for small bowel obstruction (SBO) identified on CT with a transition point in the right lower quadrant. He presented with abdominal pain, distention, and vomiting but has shown steady clinical improvement. A small bowel follow-through revealed delayed transit with eventual passage of contrast to the colon, suggesting a resolving, non-mechanical obstruction. He has had multiple bowel movements, is passing gas, and has decreased abdominal distention with normalized bowel sounds. The NG tube was removed yesterday, and a clear liquid diet has been initiated. Labs show persistent mild hypercalcemia (now 11.4), prompting further evaluation with PTH and vitamin D levels. Pancytopenia is under investigation, and low vitamin B12 was identified and is being replaced orally. Tums have been discontinued due to the elevated calcium. The patient developed a need for supplemental oxygen (4L NC, SpO? 93%) on 06/18 despite a normal chest X-ray and no known pulmonary disease; a CTA has been ordered for further evaluation. Pain is well-controlled without IV opioids. The patient reports no new concerns and continues to be monitored closely. 06/22/24 Pt resting in the chair. Discussed CT findings and labs in detail. Yesterday CTA of chest showed right upper and middle lobe PE's. As well as new T9 paraspinal soft tissue mass. Will order MRI for further evaluation of mass if heart stent is compatible. Nurse calling Dr. Jung's office to find out. Echo and venous duplex of BLLE pending today. Pt passing gas and solid stools now. He was transitioned to a soft diet and can advance as tolerated by today. has also signed off pt's case. O2 weaned down to 2lNC 96% today. He denies any further concerns at this time. 06/23 Pt sitting in chair today. Discussed MRI findings and labs with pt and daughter. Pt to f/u OP with oncology, cardiology, and PCP. Venous duplex negative for DVT. Echo remains pending and pt will need to f/u OP with cardiology for results. Case management working on home O2. Pt denies any further concerns at this time. - Vitals & Intake/Output Vital Signs: Vital Signs Temperature 97.1 F 06/23/24 07:43 Pulse Rate 65 06/23/24 07:43 Respiratory Rate 20 06/23/24 07:43 Blood Pressure 109/57 06/23/24 07:43 O2 Sat by Pulse Oximetry 95 06/23/24 07:43 Intake & Output: Intake & Output 06/20/24 06/21/24 06/22/24 06/23/24 11:59 11:59 11:59 11:59 Intake Total 2360 3482 2304 2095 Output Total 5050 600 0 0 Balance -2690 2882 2304 2095 Weight 90.6 kg 90.8 kg - Lab Result Diagrams: 06/23/24 05:02 06/23/24 05:02 Lab Results-Last 24 Hrs: Lab Results-Last 24 Hours 06/22/24 06/22/24 06/22/24 Range/Units 11:37 16:50 21:46 WBC (4.23-9.07) x10^3/uL RBC (4.63-6.08) x10^6/uL Hgb (13.7-17.5) g/dL Hct (40.1-51.0) % MCV (79.0-92.2) fL MCH (25.7-32.2) pg MCHC (32.3-36.5) g/dL RDW (11.6-14.4) % Plt Count (163-337) x10^3/uL MPV (9.4-12.4) fL Gran % (34.0-67.9) % Immature Gran % (Auto) (0.001-0.429) % Nucleat RBC Rel Count (0.00-0.2) % Eos # (Auto) (0.04-0.54) x10^3/uL Immature Gran # (Auto) (0.001-0.031) x10^3u/L Absolute Lymphs (auto) (1.32-3.57) x10^3/uL Absolute Monos (auto) (0.30-0.82) x10^3/uL Absolute Nucleated RBC (0.00-0.012) x10^3u/L Lymphocytes % (21.8-53.1) % Monocytes % (5.3-12.2) % Eosinophils % (0.8-7.0) % Basophils % (0.2-1.2) % Absolute Granulocytes (1.78-5.38) x10^3/uL Basophils # (0.01-0.08) x10^3/uL Sodium (135-145) mmol/L Potassium (3.5-5.1) mmol/L Chloride (98-107) mmol/L Carbon Dioxide (22-30) mmol/L Anion Gap (5-15) MEQ/L BUN (9-20) mg/dL Creatinine (0.66-1.25) mg/dL Estimated GFR ML/MIN Glucose (74-106) mg/dL POC Glucometer 101 85 131 H (74 to 106) mg/dL Calcium (8.4-10.2) mg/dL Total Bilirubin (0.2-1.3) mg/dL AST (17-59) U/L ALT (0-50) U/L Alkaline Phosphatase (38-126) U/L Serum Total Protein (6.3-8.2) g/dL Albumin (3.5-5.0) g/dL 06/23/24 06/23/24 06/23/24 Range/Units 05:02 05:02 07:14 WBC 4.4 (4.23-9.07) x10^3/uL RBC 3.64 L (4.63-6.08) x10^6/uL Hgb 11.1 L (13.7-17.5) g/dL Hct 34.3 L (40.1-51.0) % MCV 94.2 H (79.0-92.2) fL MCH 30.5 (25.7-32.2) pg MCHC 32.4 (32.3-36.5) g/dL RDW 13.0 (11.6-14.4) % Plt Count 115 L (163-337) x10^3/uL MPV 12.1 (9.4-12.4) fL Gran % 49.4 (34.0-67.9) % Immature Gran % (Auto) 2.1 H (0.001-0.429) % Nucleat RBC Rel Count 0.0 (0.00-0.2) % Eos # (Auto) 0.04 (0.04-0.54) x10^3/uL Immature Gran # (Auto) 0.09 H (0.001-0.031) x10^3u/L Absolute Lymphs (auto) 1.28 L (1.32-3.57) x10^3/uL Absolute Monos (auto) 0.77 (0.30-0.82) x10^3/uL Absolute Nucleated RBC 0.00 (0.00-0.012) x10^3u/L Lymphocytes % 29.4 (21.8-53.1) % Monocytes % 17.7 H (5.3-12.2) % Eosinophils % 0.9 (0.8-7.0) % Basophils % 0.5 (0.2-1.2) % Absolute Granulocytes 2.16 (1.78-5.38) x10^3/uL Basophils # 0.02 (0.01-0.08) x10^3/uL Sodium 137 (135-145) mmol/L Potassium 4.4 (3.5-5.1) mmol/L Chloride 102 (98-107) mmol/L Carbon Dioxide 30 (22-30) mmol/L Anion Gap 10.2 (5-15) MEQ/L BUN 17 (9-20) mg/dL Creatinine 0.91 (0.66-1.25) mg/dL Estimated GFR 85.2 ML/MIN Glucose 111 H (74-106) mg/dL POC Glucometer 98 (74 to 106) mg/dL Calcium 10.3 H (8.4-10.2) mg/dL Total Bilirubin 0.50 (0.2-1.3) mg/dL AST 35 (17-59) U/L ALT 20 (0-50) U/L Alkaline Phosphatase 35 L (38-126) U/L Serum Total Protein 5.4 L (6.3-8.2) g/dL Albumin 3.0 L (3.5-5.0) g/dL Micro Results-Entire Visit: Accuchecks Date 06/23/24 Date 06/22/24 Date 06/22/24 Date 06/22/24 Date 06/22/24 Time 07:41 Time 16:58 Time 16:58 Time 16:58 Time 11:44 - Radiology Exams Ordered Rad Exams-Entire Visit: Radiology Procedures Category Date Time Status CHEST WITH CONTRAST [CT] Routine Exams 06/21/24 10:47 Completed ECHO W/2D AND DOPPLER [US] Routine Exams 06/22/24 08:00 Taken MRI T-SPINE W & W/O CONTRAST [MRI] Routine Exams 06/22/24 12:45 Completed VENOUS BILATERAL EXTREMITY [US] Routine Exams 06/22/24 08:00 Completed - Procedures and Test Procedures and Tests throughout Hospitalization: Therapy Orders & Screens 06/18/24 18:50 Oxygen Nasal Cannula 4 lpm Comment: Diagnosis: SBO 06/20/24 23:25 Incentive Spirometry UD Comment: Diagnosis: SBO 06/21/24 13:48 PT Eval & Treat (MD Order) ONCE Reason for Eval:: EVAL FOR NEED FOR WALKER Diagnosis: SBO Discharge Exam General Appearance: no apparent distress, alert, obese Neurologic Exam: alert, oriented x 3, cooperative, normal mood/affect, nml cerebellar function, sensation nml, No motor deficits Eye Exam: PERRL, EOMI, eyes nml inspection Ears, Nose, Throat Exam: normal ENT inspection, pharynx normal, moist mucous membranes Neck Exam: normal inspection, non-tender, supple, full range of motion Respiratory Exam: normal breath sounds, lungs clear, No respiratory distress Cardiovascular Exam: regular rate/rhythm, normal heart sounds Gastrointestinal/Abdomen Exam: soft, No tenderness, No mass Male Genitalia Exam: deferred Rectal Exam: deferred Back Exam: normal inspection, normal range of motion, No CVA tenderness, No vertebral tenderness Extremity Exam: normal inspection, normal range of motion Skin Exam: normal color, warm, dry Final Diagnosis/Problem List - Final Discharge Diagnosis/Problem (1) Small bowel obstruction Current Visit: Yes Status: Resolved Code(s): K56.609 - UNSP INTESTNL OBST, UNSP TO PARTIAL VERSUS COMPLETE OBST (2) Dyspnea Current Visit: Yes Status: Acute Code(s): R06.00 - DYSPNEA, UNSPECIFIED (3) Vitamin B 12 deficiency Current Visit: Yes Status: Acute Code(s): E53.8 - DEFICIENCY OF OTHER SPECIFIED B GROUP VITAMINS (4) Iron deficiency anemia Current Visit: Yes Status: Acute Code(s): D50.9 - IRON DEFICIENCY ANEMIA, UNSPECIFIED (5) Thrombocytopenia Current Visit: Yes Status: Acute (6) Abdominal aortic aneurysm (AAA) 3.0 cm to 5.5 cm in diameter in male Current Visit: Yes Status: Acute Code(s): I71.40 - ABDOMINAL AORTIC ANEURYSM, WITHOUT RUPTURE, UNSPECIFIED (7) CAD (coronary artery disease) Current Visit: Yes Status: Chronic Code(s): I25.10 - ATHSCL HEART DISEASE OF [place] CORONARY ARTERY W/O ANG PCTRS (8) Hypercalcemia Current Visit: Yes Status: Acute Code(s): E83.52 - HYPERCALCEMIA (9) Type 2 diabetes mellitus Current Visit: Yes Status: Chronic (10) Obesity (BMI 30.0-34.9) Current Visit: Yes Status: Chronic Code(s): E66.811 - OBESITY, CLASS 1 (11) Hyperlipidemia Current Visit: Yes Status: Chronic Code(s): E78.5 - HYPERLIPIDEMIA, UNSPECIFIED (12) Pancytopenia Current Visit: Yes Status: Resolved Code(s): D61.818 - OTHER PANCYTOPENIA (13) Hyperkalemia Current Visit: Yes Status: Resolved Code(s): E87.5 - HYPERKALEMIA (14) Dehydration Current Visit: Yes Status: Resolved Code(s): E86.0 - DEHYDRATION (15) Total bilirubin, elevated Current Visit: Yes Status: Acute Code(s): R17 - UNSPECIFIED JAUNDICE (16) Pulmonary embolism Current Visit: Yes Status: Acute Code(s): I26.99 - OTHER PULMONARY EMBOLISM WITHOUT ACUTE COR PULMONALE (17) Paraspinal soft tissue mass Current Visit: Yes Status: Acute Assessment & Plan: (1) Small bowel obstruction Current Visit: Yes Status: Resolved Assessment & Plan: - Resolved - + BM's and passing gas - GS consulted- awaiting recs for advancement of diet - Clear liquid diet - IVF - TELE - Dilaudid stopped 5/6 - Per GS advance diet as tolerated and they have signed off of pt case. - No need for OP f/u per GS. Code(s): K56.609 - UNSP INTESTNL OBST, UNSP TO PARTIAL VERSUS COMPLETE OBST (2) Dyspnea Current Visit: Yes Status: Acute Assessment & Plan: - CTA reviewed, + PE's- see plan - 4LNC- 93% - Baseline RA - CXR negative - CBC reviewed - 2:2 PE's Code(s): R06.00 - DYSPNEA, UNSPECIFIED (3) Vitamin B 12 deficiency Current Visit: Yes Status: Acute Assessment & Plan: - Vitamin B12 def - Started Cyanocobalamin PO 2000 daily - Will need OP f/u Code(s): E53.8 - DEFICIENCY OF OTHER SPECIFIED B GROUP VITAMINS (4) Iron deficiency anemia Current Visit: Yes Status: Acute Assessment & Plan: - Started ferrous sulfate daily - Iron labs reviewed- Iron sat 11, Iron 29 - Hgb 12.1 06/22 - Hgb 11.5 06/23 - Hgb 11.1 Code(s): D50.9 - IRON DEFICIENCY ANEMIA, UNSPECIFIED (5) Thrombocytopenia Current Visit: Yes Status: Acute Assessment & Plan: - PLT 119- trend - Will need OP f/u with hematology 06/22 - PLT 116 5/ - PLT 115 (6) Abdominal aortic aneurysm (AAA) 3.0 cm to 5.5 cm in diameter in male Current Visit: Yes Status: Acute Assessment & Plan: - 4.2 cm - Will need OP f/u with PCP for repeat imaging/ US or CT in 12 months per guidelines. - As seen on CT abd/pelvis Code(s): I71.40 - ABDOMINAL AORTIC ANEURYSM, WITHOUT RUPTURE, UNSPECIFIED (7) CAD (coronary artery disease) Current Visit: Yes Status: Chronic Assessment & Plan: - Continue home meds - Monitor telemetry - O2 4lNC 93% - LASIX held Code(s): I25.10 - ATHSCL HEART DISEASE OF [place] CORONARY ARTERY W/O ANG PCTRS (8) Hypercalcemia Current Visit: Yes Status: Acute Assessment & Plan: - Ca+ 11.1 - TUMS tabs stopped - Vitamin D - normal - PTH pending 06/22 - Ca+ 10.8 / - Ca+ 10.3 - F/U with oncology Code(s): E83.52 - HYPERCALCEMIA (9) Type 2 diabetes mellitus Current Visit: Yes Status: Chronic Qualifiers: 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: without bullard machine operator use Diabetes mellitus complication status: without complication Qualified Code(s): E11.9 - Type 2 diabetes mellitus without complications Assessment & Plan: - Monitor blood glucose q4h while NPO and hold oral agents - Use sliding scale insulin or basal insulin as needed - A1c 5.90- 03/26/24 - Transition to Carb consistent diet when able (10) Obesity (BMI 30.0-34.9) Current Visit: Yes Status: Chronic Assessment & Plan: - Advised ADA diet and exercise control Code(s): E66.811 - OBESITY, CLASS 1 (11) Hyperlipidemia Current Visit: Yes Status: Chronic Assessment & Plan: - Continue home meds Code(s): E78.5 - HYPERLIPIDEMIA, UNSPECIFIED (12) Pancytopenia Current Visit: Yes Status: Resolved Assessment & Plan: - noted - F/U with hematology/ oncology OP Code(s): D61.818 - OTHER PANCYTOPENIA (13) Hyperkalemia Current Visit: Yes Status: Resolved Assessment & Plan: - resolved Code(s): E87.5 - HYPERKALEMIA (14) Dehydration Current Visit: Yes Status: Resolved Assessment & Plan: - Resolved Code(s): E86.0 - DEHYDRATION (15) Total bilirubin, elevated Current Visit: Yes Status: Acute Assessment & Plan: - Resolved Code(s): R17 - UNSPECIFIED JAUNDICE (16) Pulmonary embolism Current Visit: Yes Status: Acute Assessment & Plan: - As seen on CTA Right upper and middle lobes - Therapeutic lovenox started 06/21 - Echo and venous duplex BLLE pending - ON 2lNC 96%- wean- baseline RA 06/23 - Started on Eliquis and RX sent in - Lovenox stopped - CM to discuss cost of Eliquis with pt. - Venous suplex negative - Echo pending reading- f/u OP with cardiology for results Code(s): I26.99 - OTHER PULMONARY EMBOLISM WITHOUT ACUTE COR PULMONALE (17) Paraspinal soft tissue mass Current Visit: Yes Status: Acute Assessment & Plan: - At T9 level seen on CTA - MRI reviewed and mass at T9 level does not appear to invade spine - stent is compatible per cardiology - Denies loss of bowel or bladder - Pt to f/u OP with oncology Code(s): M79.89 - OTHER SPECIFIED SOFT TISSUE DISORDERS - Discharge Discharge Date: 06/23/24 Disposition: Home, Self-Care Condition: Stable Prescriptions: New Apixaban [Eliquis] 5 mg PO BID 30 Days #81 tab Cyanocobalamin 500 Mcg [Vitamin B-12 500 MCG] 2,000 mcg PO DAILY 30 Days #30 tablet Continue Atorvastatin Calcium [Lipitor 40Mg] 40 mg PO DAILY Furosemide 40 mg [Lasix 40 MG] 40 mg PO BID Fenofibrate Nanocrystallized [Tricor] 48 mg PO DAILY Metformin HCl 1,000 mg PO BID Potassium Chloride 20 Meq [Klor-Con 20 MEQ] 20 meq PO BID Magnesium Oxide [Magnesium] 400 mg PO DAILY diphenhydrAMINE HCL [Allergy Relief] 25 mg PO QHS Cholecalciferol (Vitamin D3) [Vitamin D] 2,000 iu PO DAILY Acetaminophen 325 mg [Tylenol 325 mg] 2 tab PO HSPRN PRN PRN Reason: Pain Bisoprolol Fumarate 5 mg PO DAILY Krill Oil 500 mg PO DAILY Losartan Potassium 50 mg [Cozaar 50 MG] 50 mg PO DAILY Celecoxib [Celebrex] 200 mg PO DAILY Omeprazole 20 mg PO DAILY Ferrous Sulfate [Slow Release Iron] 140 mg PO DAILY Aspirin 81 gm Chew [Baby Aspirin 81 mg Chew] 81 mg PO DAILY Instructions: Oxygen therapy at home Additional Instructions: WEAR 2L/NC AT ALL TIMES, CALL [facility] [place] AT [phone] WHEN YOU GET HOME SO THEY CAN DELIVER YOUR HOME [facility] [employer] HAS BEEN SET UP FOR YOU. THEY WILL CALL YOU TO ARRANGE A TIME TO COME SEE YOU. THEIR PHONE NUMBER IS [phone] IF YOU NEED ANYTHING PRIOR TO THEIR VISIT. [facility] TO SET UP WITH [facility] Follow up with: JANUSZ SARAVIA PA [NON-STAFF PHY W/O PRIVILEGES, UNKNOWN] - 07/07/24 9:30 am Referral Note: JUANITA Baird DO [Primary Care Provider, FAMILY PRACTICE] - 06/30/24 3:00 pm REBEKA DESIR MD [NON-STAFF PHY W/O PRIVILEGES, HEMATOLOGY] - Office will call patient Referral Note: NEW PATIENT REFERRAL SENT TO DR. DESIR OFFICE- THEY WILL CALL YOU WITH AN APPOINTMENT DATE AND TIME SATHYA HARRIS [NON-STAFF PHY W/O PRIVILEGES, UNKNOWN] - 09/10/24 8:30 am Referral Note: Zelda Hernandez
[2024-06-23 11:35] VITALS: BP 105/58; PULSE 70; RESP 16; TEMP 97.8; O2SAT 92
--- NOTE | 2024-06-23 20:44 | PROG NOTE ---
On exam, the patient's vital signs are stable. He is actually quite sleepy and sleeping from getting an anxiolytic for MRI of his back earlier. He had been tolerating p.o. and moving his bowels according to family at the bedside. His abdomen is very soft, no rebound, no guarding. As he is tolerating p.o. and moving his bowels, as his vital signs are stable, he does not need any acute general surgery intervention at this time. At this time, our group will sign off seeing this patient for Dr. Sudhir Cooper who had seen the patient initially. He does not need a followup with us at the moment. Continue medical management of his medical issues at this time, and we agreed that he does not need any acute surgical intervention. We will sign off at this time.
== END 2024-06-23 14:10 | disposition home health service (06) | DRG 388 ==
LOC: ED 09:52 → MED SURG 15:02
PROVIDERS: ADMIT Internal Medicine; ATTEND Internal Medicine
DX: K56.609 Unspecified intestinal obstruction, unspecified as to partial versus complete obstruction (principal); I26.99 Other pulmonary embolism without acute cor pulmonale; D61.818 Other pancytopenia; R17 Unspecified jaundice; R06.00 Dyspnea, unspecified; E53.8 Deficiency of other specified B group vitamins; D50.9 Iron deficiency anemia, unspecified; D69.6 Thrombocytopenia, unspecified; I71.40 Abdominal aortic aneurysm, without rupture, unspecified; I25.10 Atherosclerotic heart disease of native coronary artery without angina pectoris; E83.52 Hypercalcemia; E11.9 Type 2 diabetes mellitus without complications; E66.811 Obesity, class 1; E78.5 Hyperlipidemia, unspecified; E87.5 Hyperkalemia; E86.0 Dehydration; M79.89 Other specified soft tissue disorders; R60.0 Localized edema; Z79.899 Other long term (current) drug therapy
CPT/HCPCS: 36415; 71045; 71260; 72157; 74176; 74250; 80053; 81001; 82306; 82607; 82728; 82746; 82947; 83540; 83550; 83605; 83690; 83880; 83970; 85025; 85045; 85046; 93005; 93306; 93970; 94760; 96374; 96375; 97161; 97530; 99285; Q3014; J1171; J1650; J2060; J2405; J3010; A9270-GY; Q9963

== ENCOUNTER 2024-06-30 19:28 | Emergency (ER) | payer MEDICARE ==
[2024-06-30 19:40] VITALS: TEMP 97
[2024-06-30 19:56] LABS: Absolute Neutrophil Ct (ANC) 5.69 x10^3/uL (1.78-5.38); BASOPHIL % 0.4 % (0.2-1.2); Basophil (Absolute #) 0.04 x10^3/uL (0.01-0.08); Eosinophil % 1.6 % (0.8-7.0); Eosinophil (Absolute #) 0.15 x10^3/uL (0.04-0.54); Hematocrit 39.3 % (40.1-51.0); Hemoglobin 13.1 g/dL (13.7-17.5); IMMATURE GRAN # 0.11 x10^3u/L (0.001-0.031); IMMATURE GRAN % 1.2 % (0.001-0.429); Lymphocyte (Absolute #) 2.41 x10^3/uL (1.32-3.57); Lymphocytes % 26.2 % (21.8-53.1); Mean Cell Volume 91.8 fL (79.0-92.2); Mean Corpuscular Hemoglobin 30.6 pg (25.7-32.2); Mean Corpuscular Hgb Concent. 33.3 g/dL (32.3-36.5); Mean Platelet Volume 11.2 fL (9.4-12.4); Monocytes % 8.7 % (5.3-12.2); Neutrophil % 61.9 % (34.0-67.9); Platelet Count 229 x10^3/uL (163-337); Red Blood Count 4.28 x10^6/uL (4.63-6.08); Red Cell Distribution Width 13.1 % (11.6-14.4); White Blood Count 9.2 x10^3/uL (4.23-9.07)
[2024-06-30] MEDS ORDERED: Sodium Chloride 0.9% 1000 ML 1,000 ML ONE (19:58)
[2024-06-30] MEDS: Sodium Chloride 0.9% 1000 ML 1,000 ML IV SCH (19:59)
[2024-06-30 20:48] LABS: ALBUMIN 3.9 g/dL (3.5-5.0); ANION GAP 16.1 MEQ/L (5-15); BILIRUBIN,TOTAL 0.5 mg/dL (0.2-1.3); Creatinine 1 1.49 mg/dL (0.66-1.25); EST GLOMERULAR FILTRATION RATE 47.2 ML/MIN; Potassium 4.8 mmol/L (3.5-5.1); Total Protein 6.2 g/dL (6.3-8.2)
[2024-06-30 20:59] LABS: Calcium 12.8 mg/dL (8.4-10.2)
--- NOTE | 2024-06-30 21:04 | ERPHSYRPT ---
- History of Present Illness Time Seen by Provider: 06/30/24 20:59 Source: patient Exam Limitations: no limitations Patient Subjective Stated Complaint: "Dr. Gordon sent me in because of my labs". Triage Nursing Assessment: Pt presents to ER, after being advised my his PCP to come in due to abnormal labs. Dr. Gordon had called prior and advised him that he is coming due to his calcium being 12.9 which was drawn after outpatient follow-up appointment he had this afternoon with Dr. Gordon after being admitted for a SBO at [facility] on 06/18/24. 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 Pt arrives to ER complaining of being tired and daughter states he has been confused and agitated. Pt is pleasant and alert upon arrival. Respirations are easy. Denies pain. Is able to ambulate with stand by assist. Vitals WNL. Physician History: Patient is an 78-year-old male presents to our ED as a referral from her primary care doctor for evaluation of hypercalcemia. Lab workup was drawn this afternoon. Patient had hypercalcemia during his most recent hospital stay. 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 There was an incidental AAA observed. Patient was also found to have a right sided pulmonary embolus. Patient was started on Eliquis. Patient states he otherwise feels fine. No active pain. No chest pain or shortness of breath. No nausea vomiting or diaphoresis. Family at bedside. Patient voices no other complaints or concerns at this time. Patient currently has an appointment with Dr. Chen hematology oncologist however has not followed up at this point. Portions of this note were created with voice recognition technology. There may be grammatical, spelling, punctuation or sound alike errors Timing/Duration: today Severity: moderate Modifying Factors: Improves With: nothing Associated Symptoms: denies symptoms Allergies/Adverse Reactions: No Known Drug Allergies Allergy (Verified 06/30/24 19:40) Home Medications: Atorvastatin Calcium [Lipitor 40Mg] 40 mg PO DAILY 07/13/17 [History] Fenofibrate Nanocrystallized [Tricor] 48 mg PO DAILY 07/13/17 [History] Furosemide 40 mg [Lasix 40 MG] 40 mg PO BID 07/13/17 [History] Metformin HCl 1,000 mg PO BID 07/13/17 [History] Potassium Chloride 20 Meq [Klor-Con 20 MEQ] 20 meq PO BID 07/13/17 [History] Magnesium Oxide [Magnesium] 400 mg PO DAILY 05/12/18 [History] Acetaminophen 325 mg [Tylenol 325 mg] 2 tab PO HSPRN PRN 02/24/23 [History] Bisoprolol Fumarate 5 mg PO DAILY 02/24/23 [History] Cholecalciferol (Vitamin D3) [Vitamin D] 2,000 iu PO DAILY 02/24/23 [History] diphenhydrAMINE HCL [Allergy Relief] 25 mg PO QHS 02/24/23 [History] Krill Oil 500 mg PO DAILY 03/14/23 [History] Celecoxib [Celebrex] 200 mg PO DAILY 06/18/24 [History] Losartan Potassium 50 mg [Cozaar 50 MG] 50 mg PO DAILY 06/18/24 [History] Omeprazole 20 mg PO DAILY 06/19/24 [History] Aspirin 81 gm Chew [Baby Aspirin 81 mg Chew] 81 mg PO DAILY 06/20/24 [History] Ferrous Sulfate [Slow Release Iron] 140 mg PO DAILY 06/20/24 [History] Hx Tetanus, Diphtheria Vaccination/Date Given: Yes Hx Influenza Vaccination/Date Given: Yes Hx Pneumococcal Vaccination/Date Given: Yes Travel Risk - International Travel Have you traveled outside of the country in past 3 weeks: No - Emerging Infectious Disease Are you exhibiting symptoms associated with any current EIDs: No - Review of Systems Constitutional: No Symptoms, No Fever, No Chills Eyes: No Symptoms Ears, Nose, & Throat: No Symptoms Respiratory: No Symptoms, No Cough, No Dyspnea Cardiac: No Symptoms, No Chest Pain, No Edema, No Syncope Abdominal/Gastrointestinal: No Symptoms, No Abdominal Pain, No Nausea, No Vomiting, No Diarrhea Genitourinary Symptoms: No Symptoms, No Dysuria Musculoskeletal: No Symptoms, No Back Pain, No Neck Pain Skin: No Symptoms, No Rash Neurological: No Symptoms, No Dizziness, No Focal Weakness, No Sensory Changes Psychological: No Symptoms Endocrine: No Symptoms Hematologic/Lymphatic: No Symptoms Immunological/Allergic: No Symptoms All Other Systems: Reviewed and Negative - Past Medical History Pertinent Past Medical History: Yes Neurological History: No Pertinent History ENT History: Glaucoma Cardiac History: Aneurysm, Coronary Artery Disease, High Cholesterol, Hypertension Respiratory History: Other Endocrine Medical History: Diabetes Type II Musculoskeletal History: Degenerative Disk Disease, Osteoarthritis GI Medical History: Other History: No Pertinent History Psycho-Social History: No Pertinent History Male Reproductive Disorders: No Pertinent History Other Medical History: BITAMIN B12 DEFICIENCY, IRON DEFICIENT ANEMIA, THROMBOCYTOPENIA, INCREASED CALCIUM AND POTASSIUM, PANCYTOPENIA,. 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, aneurysm, pulmonary embolism - Past Surgical History Past Surgical History: Yes Neuro Surgical History: No Pertinent History Cardiac: Cardiac Catheterization, Cardiac Stent Respiratory: No Pertinent History Gastrointestinal: Appendectomy Genitourinary: No Pertinent History Musculoskeletal: No Pertinent History Male Surgical History: No Pertinent History Significant Family History: heart disease, cancer, stroke - Social History Smoking Status: Former smoker Exposure to second hand smoke: No Drug Use: none - Social Determinants of Health Will the patient participate in the screening: Yes Do you worry about a steady place to live?: No Do you have any problems with any of the following?: No known problems In the past 12 months,have you had to go without utilities?: No Transportation Issues: No Has anyone in your support network made you feel unsafe?: No Have you or anyone in your house had to go w/o enough food: No - Nursing Vital Signs Nursing Vital Signs: Initial Vital Signs Temperature 97 F 06/30/24 19:35 Pulse Rate 66 06/30/24 19:35 Respiratory Rate 18 06/30/24 19:35 Blood Pressure 130/63 06/30/24 19:35 O2 Sat by Pulse Oximetry 93 L 06/30/24 19:35 Pain Scale Pain Intensity 0 - Physical Exam General Appearance: no apparent distress, alert Eye Exam: PERRL/EOMI, eyes nml inspection Ears, Nose, Throat Exam: normal ENT inspection, TMs normal, pharynx normal, moist mucous membranes Neck Exam: normal inspection, non-tender, supple, full range of motion Respiratory Exam: normal breath sounds, lungs clear, No respiratory distress Cardiovascular Exam: regular rate/rhythm, normal heart sounds, normal peripheral pulses Gastrointestinal/Abdomen Exam: soft, normal bowel sounds, No tenderness, No mass Back Exam: normal inspection, normal range of motion, No CVA tenderness, No vertebral tenderness Extremity Exam: normal inspection, normal range of motion, pelvis stable Neurologic Exam: alert, oriented x 3, cooperative, normal mood/affect, nml cerebellar function, nml station & gait, sensation nml, No motor deficits Skin Exam: normal color, warm, dry, No rash Lymphatic Exam: No adenopathy SpO2 Interpretation: normal SpO2: 96 O2 Delivery: Room Air - Course Nursing assessment & vital signs reviewed: Yes EKG Interpreted by Me: RATE ([id number]), Sinus Rhythm, NORMAL AXIS, Left Bundle Branch Block Ordered Tests: Active Orders 24 hr Category Date Time Status Waiter/[employer] STAT Care 06/30/24 19:48 Active EKG-ER Only STAT Care 06/30/24 19:48 Active IV Insertion STAT Care 06/30/24 19:48 Active Pulse Oximetry (ED) STAT Care 06/30/24 19:48 Active CBC W DIFF Stat Lab 06/30/24 19:50 Completed CMP Stat Lab 06/30/24 19:50 Completed TROPONIN Q4H Lab 06/30/24 19:50 Completed TROPONIN Q4H Lab 07/01/24 00:00 Ordered TROPONIN Q4H Lab 07/01/24 04:00 Ordered UA W/RFX UR CULTURE Stat Lab 06/30/24 21:46 Completed Medication Summary Generic Name Dose Route Start Last Admin Trade Name Freq PRN Reason Stop Dose Admin Sodium Chloride 1,000 mls @ 100 mls/hr 06/30/24 20:00 06/30/24 19:59 Sodium Chloride 0.9% 1000 Ml IV 07/30/24 19:59 100 mls/hr .Q10H REYNALDO Administration Lab/Rad Data: Laboratory Result Diagrams 06/30/24 19:50 06/30/24 19:50 Laboratory Results 06/30/24 06/30/24 06/30/24 Range/Units 21:46 19:50 19:50 WBC (4.23-9.07) x10^3/uL RBC (4.63-6.08) x10^6/uL Hgb (13.7-17.5) g/dL Hct (40.1-51.0) % MCV (79.0-92.2) fL MCH (25.7-32.2) pg MCHC (32.3-36.5) g/dL RDW (11.6-14.4) % Plt Count (163-337) x10^3/uL MPV (9.4-12.4) fL Gran % (34.0-67.9) % Immature Gran % (Auto) (0.001-0.429) % Nucleat RBC Rel Count (0.00-0.2) % Eos # (Auto) (0.04-0.54) x10^3/uL Immature Gran # (Auto) (0.001-0.031) x10^3u/L Absolute Lymphs (auto) (1.32-3.57) x10^3/uL Absolute Monos (auto) (0.30-0.82) x10^3/uL Absolute Nucleated RBC (0.00-0.012) x10^3u/L Lymphocytes % (21.8-53.1) % Monocytes % (5.3-12.2) % Eosinophils % (0.8-7.0) % Basophils % (0.2-1.2) % Absolute Granulocytes (1.78-5.38) x10^3/uL Basophils # (0.01-0.08) x10^3/uL Sodium 137 (135-145) mmol/L Potassium 4.8 (3.5-5.1) mmol/L Chloride 99 (98-107) mmol/L Carbon Dioxide 27 (22-30) mmol/L Anion Gap 16.1 H (5-15) MEQ/L BUN 23 H (9-20) mg/dL Creatinine 1.49 H (0.66-1.25) mg/dL Estimated GFR 47.2 ML/MIN Glucose 96 (74-106) mg/dL Calcium 12.8 H* (8.4-10.2) mg/dL Total Bilirubin 0.50 (0.2-1.3) mg/dL AST 42 (17-59) U/L ALT 33 (0-50) U/L Alkaline Phosphatase 34 L (38-126) U/L Troponin I < 0.012 (0.000-0.033) ng/mL Serum Total Protein 6.2 L (6.3-8.2) g/dL Albumin 3.9 (3.5-5.0) g/dL Urine Color Yellow (Yellow) Urine Appearance Clear (Clear) Urine pH 5.5 (4.6-8.0) Ur Specific [place] 1.010 (1.005-1.030) Urine Protein Negative (Negative) Urine Glucose (UA) Negative (Negative) mg/dL Urine Ketones Negative (Negative) Urine Blood Negative (Negative) Urine Nitrite Negative (Negative) Urine Bilirubin Negative (Negative) Urine Urobilinogen 0.2 (0.2) mg/dL Ur Leukocyte Esterase Negative (Negative) U Hyaline Cast (Auto) 3-5 A (0-2) /LPF Urine Microscopic RBC 0-2 (0-5) /HPF Urine Microscopic WBC 0-2 (0-5) /HPF Ur Epithelial Cells None Seen (None Seen) /HPF Urine Bacteria None Seen (None Seen) /HPF Urine Culture Reflexed NO (NO) 06/30/24 Range/Units 19:50 WBC 9.2 H (4.23-9.07) x10^3/uL RBC 4.28 L (4.63-6.08) x10^6/uL Hgb 13.1 L (13.7-17.5) g/dL Hct 39.3 L (40.1-51.0) % MCV 91.8 (79.0-92.2) fL MCH 30.6 (25.7-32.2) pg MCHC 33.3 (32.3-36.5) g/dL RDW 13.1 (11.6-14.4) % Plt Count 229 (163-337) x10^3/uL MPV 11.2 (9.4-12.4) fL Gran % 61.9 (34.0-67.9) % Immature Gran % (Auto) 1.2 H (0.001-0.429) % Nucleat RBC Rel Count 0.0 (0.00-0.2) % Eos # (Auto) 0.15 (0.04-0.54) x10^3/uL Immature Gran # (Auto) 0.11 H (0.001-0.031) x10^3u/L Absolute Lymphs (auto) 2.41 (1.32-3.57) x10^3/uL Absolute Monos (auto) 0.80 (0.30-0.82) x10^3/uL Absolute Nucleated RBC 0.00 (0.00-0.012) x10^3u/L Lymphocytes % 26.2 (21.8-53.1) % Monocytes % 8.7 (5.3-12.2) % Eosinophils % 1.6 (0.8-7.0) % Basophils % 0.4 (0.2-1.2) % Absolute Granulocytes 5.69 H (1.78-5.38) x10^3/uL Basophils # 0.04 (0.01-0.08) x10^3/uL Sodium (135-145) mmol/L Potassium (3.5-5.1) mmol/L Chloride (98-107) mmol/L Carbon Dioxide (22-30) mmol/L Anion Gap (5-15) MEQ/L BUN (9-20) mg/dL Creatinine (0.66-1.25) mg/dL Estimated GFR ML/MIN Glucose (74-106) mg/dL Calcium (8.4-10.2) mg/dL Total Bilirubin (0.2-1.3) mg/dL AST (17-59) U/L ALT (0-50) U/L Alkaline Phosphatase (38-126) U/L Troponin I (0.000-0.033) ng/mL Serum Total Protein (6.3-8.2) g/dL Albumin (3.5-5.0) g/dL Urine Color (Yellow) Urine Appearance (Clear) Urine pH (4.6-8.0) Ur Specific [place] (1.005-1.030) Urine Protein (Negative) Urine Glucose (UA) (Negative) mg/dL Urine Ketones (Negative) Urine Blood (Negative) Urine Nitrite (Negative) Urine Bilirubin (Negative) Urine Urobilinogen (0.2) mg/dL Ur Leukocyte Esterase (Negative) U Hyaline Cast (Auto) (0-2) /LPF Urine Microscopic RBC (0-5) /HPF Urine Microscopic WBC (0-5) /HPF Ur Epithelial Cells (None Seen) /HPF Urine Bacteria (None Seen) /HPF Urine Culture Reflexed (NO) - Progress Progress Note: Patient accepted by ER physician Dr. Alexis [facility] at 9:34 PM. 06/30/24 21:35 78-year-old male presents to our ED via as a referral from his primary care doctor for hypercalcemia. Patient has a known spinal mass. Additionally repeat labs indicate patient has had an acute change in his kidney function. I discussed the case with our hospitalist Dr. Tarango at approximately 2100. She declined admission secondary to the need for nephrology to address the acute renal injury and the hypercalcemia. Laboratory workup confirms a hypercalcemia of 12.8. Patient will be transferred to [facility] for further evaluation and treatment. Plan of care discussed with patient and his daughter. They agree to transfer to [facility] for further evaluation and treatment. Portions of this note were created with voice recognition technology. There may be grammatical, spelling, punctuation or sound alike errors Complexity of problem addressed is moderate acute complicated. No critical care time. Complexity of data reviewed and analyzed as extensive. Test ordered test reviewed results analyzed and correlated clinically with history and physical exam. Management discussed with our hospitalist Dr. Tarango and ER physician at [facility]. Risk of complication at or risk of morbidity/mortality of patient management is high. Patient requires transfer to higher level of care. Vital stable. Time spent to transfer patient approximately 20 minutes. Plan of care established for shared decision making. No social determinants of health present to impede follow-up. Portions of this note were created with voice recognition technology. There may be grammatical, spelling, punctuation or sound alike errors 06/30/24 21:41 Counseled pt/family regarding: lab results, diagnosis - Departure Departure Disposition: Transfer Clinical Impression: Hypercalcemia, Acute renal injury Condition: Stable Critical Care Time: No Referrals: JUANITA GORDON DO [Primary Care Provider, [facility]] - Follow up/PCP as directed
[2024-06-30 21:58] LABS: Appearance Clear (Clear); Bacteria None Seen /HPF (None Seen); Bilirubin Negative (Negative); Blood Negative (Negative); Epithelial Cells None Seen /HPF (None Seen); Glucose, Urine Negative (Negative); Ketones Negative (Negative); Leukocyte Esterase Negative (Negative); Nitrite Negative (Negative); Ph 5.5 (4.6-8.0); Protein,Urine Dip Negative (Negative); RBC 0-2 /HPF (0-5); Urobilinogen 0.2 mg/dL (0.2); WBC 0-2 /HPF (0-5)
[2024-07-01 01:03] VITALS: BP 118/74; PULSE 59; RESP 16; O2SAT 94
== END 2024-07-01 01:40 | disposition short-term general hospital (02) ==
LOC: ED 19:28
DX: E83.52 Hypercalcemia (principal); N17.9 Acute kidney failure, unspecified; D49.2 Neoplasm of unspecified behavior of bone, soft tissue, and skin; I10 Essential (primary) hypertension; Z79.01 Long term (current) use of anticoagulants; Z79.899 Other long term (current) drug therapy
CPT/HCPCS: 36415; 80053; 81001; 84484; 85025; 93005; 93041; 94760; 99285